=== PATIENT | female | born 1955 | race African-American/Black ===

== ENCOUNTER 2022-12-11 14:23 | Outpatient (REF) | payer OTHER, SELFPAY ==
--- NOTE | ~2022-12-11 | CT_ITS ---
EXAMINATION: CT ELBOW WITHOUT CONTRAST, RIGHT CLINICAL INFORMATION: Evaluate for occult fracture. COMPARISON: None. TECHNIQUE: CT scan of the right elbow was performed without contrast with reconstruction imaging performed at the acquisition workstation FINDINGS: There is a large joint effusion and possible synovitis. I do not see a fracture. Alignment is normal. There is a small 2 mm subchondral irregularity of the radiocarpal joint which could reflect a small subchondral cyst related to focal arthrosis. The articular surfaces otherwise appear intact and unremarkable. The surrounding bone is unremarkable. Cutaneous soft tissues: There is stranding in the subcutaneous soft tissues along the posterior aspect of the elbow including the olecranon bursa which could reflect edema or localized cellulitis and bursitis. Muscles/tendons: Unremarkable. CT/CT elbow RT wo IV con IMPRESSION: 1. No evidence for fracture. 2. Large joint effusion and possible synovitis. Etiology not determined. This could reflect an underlying inflammatory arthropathy. Cannot exclude early septic joint. 3. There is stranding in the subcutaneous soft tissues along the posterior aspect of the elbow including the olecranon bursa which could reflect edema or localized cellulitis and bursitis or contusion of the olecranon bursa. 4. Possible minimal osteoarthritis of the radiocarpal joint.
--- NOTE | ~2022-12-11 | CT_ITS ---
EXAMINATION: CT CHEST WITHOUT CONTRAST CLINICAL INFORMATION: Nicotine dependent. COMPARISON: None available. TECHNIQUE: Multidetector volumetric CT imaging of the chest was done. Axial MIP volume rendering provided. Sagittal and coronal reformatted images were obtained. This CT examination was performed using dose optimization techniques as appropriate, variously including the following: *Automated exposure control *Adjustment of mA and/or kV according to patient size (this includes techniques or standardized protocols for targeted exams where dose is matched to indication/reason for exam; i.e. extremities or head) *Use of iterative reconstruction technique DLP: 341 mGy-cm FINDINGS: LUNGS: There is a 1 cm opacity seen with ill-defined borders in the right upper lobe (7:201-220). With a small cystic area at its base. I suspect that this is most likely inflammatory/infectious in etiology. Scattered other areas of scarring/atelectasis is seen. Bibasilar groundglass changes are noted but significant respiratory artifact obscures detail. MEDIASTINUM: Thyroid appears mildly enlarged without discrete mass. Heart size within normal limits. No gross mediastinal or hilar lymphadenopathy is seen but study is limited without IV contrast. CORONARY ARTERY CALCIFICATION: Present PLEURA: There is no pleural effusion. No pleural mass or thickening. AXILLA: No lymphadenopathy. UPPER ABDOMEN: There is an indeterminate left adrenal gland nodule that measures 2.2 x 2.0 x 2.4 cm. This measures 35-50 Hounsfield units. This is less likely a gastric diverticulum. OSSEOUS STRUCTURES: Degenerative changes are present in the spine with biconvex scoliosis. No bony destructive lesions CT/CT chest wo IV con IMPRESSION: 1. There is a 1 cm ill-defined opacity in the right upper lobe with a small cystic area at its base. I suspect that this is most likely inflammatory/infectious in etiology. Follow-up should be per Fleischner criteria, see below. 2. Indeterminate left adrenal gland nodule. This could be further evaluated with a dedicated adrenal washout CT scan. 3. Incidental note made of mild thyromegaly, degenerative changes in the spine, and coronary artery calcifications. 2017 Fleischner Society Recommendations for Lung Nodule(s): Follow up based on size (average of long- and short-axis diameters). Use most suspicious nodule for followup. Single Part Solid lung nodule >= 6 - <=15 mm: Recommend a non-contrast Chest CT at 3-6 months to confirm persistence. If unchanged and the solid component remains < 6 mm, an annual non-contrast Chest CT should be performed for 5 years. If the solid component is 6 - 8 mm on follow-up, recommend biopsy or resection. If the solid component is > 8 mm on follow up, recommend PET/CT, biopsy or resection. These guidelines do not apply to patients younger than 35 years, immunocompromised patients, and patients with cancer. F/u in patients with significant comorbidities as clinically warranted. For lung cancer screening, adhere to Lung-RADS guidelines. Reference: Radiology. 2017 [place]; 284(1):228-243
== END 2022-12-11 14:24 | disposition home or self-care (01) ==
LOC: HO.CT 14:23
PROVIDERS: PCP Hospitalist; Visit Provider Hospitalist
DX: M25.521 Pain in right elbow (principal); Z87.891 Personal history of nicotine dependence
CPT/HCPCS: 71250; 73200

== ENCOUNTER 2022-12-21 17:13 | Emergency (ER) | payer OTHER, SELFPAY ==
--- NOTE | ~2022-12-21 | XR_ITS ---
EXAMINATION: XR CHEST CLINICAL INFORMATION: Cough, shortness of breath COMPARISON: Chest CT on 12/11/2022 TECHNIQUE: 2 views of the chest were obtained. FINDINGS: The cardiac silhouette is normal. There is mild diffuse bronchial wall thickening. There are no areas of consolidation. There are no pleural effusions or pneumothoraces. The bones and soft tissues are unremarkable for the patient's age. XR/XR chest 2V IMPRESSION: Bronchial wall thickening may be infectious and/or inflammatory in etiology.
--- NOTE | 2022-12-21 17:16 | ED_ITS ---
HPI - General Adult General Chief complaint: Dyspnea Stated complaint: difficulty breathing Time Seen by Provider: 12/21/22 23:30 Source: patient Mode of arrival: ambulatory Limitations: no limitations History of Present Illness HPI narrative: 67 yo female with PMH of CAD s/p stent, HTN, arthritis dealing with R elbow not being able to be fully extended just had CT scan showed efffusion and synovisitis doctor put her on cephalexin though no redness swelling or fever. She has not taken any cephalexin as she isn't sure why her doctor started it. She has been dealing with shortness of breath for a little bit but no chest pain has not seen her food service coordinator - no travel, fevers, cough, quit smoking 5 years ago not related to exertion, the patient states she is fine sometimes and not others. No edema she was walking to the office and felt short of breath came to the ED. she feels fine now and has no hx of blood clots wants to go but agrees to repeat troponin. MD complaint: shortness of breath Onset (ago): week(s) (several) Location: chest Severity: mild Relieving factors: none Exacerbating factors: rest (exertion) Associated symptoms: other (R elbow is stiff) Treatments prior to arrival: none Related Data Previous Rx's Medication Instructions Recorded albuterol sulfate 90 mcg/actuation 2 puff inhalation QID PRN 12/22/22 aerosol inhaler shortness of breath or wheezing #6.7 grams doxycycline hyclate 100 mg capsule 100 mg PO BID 7 days #14 caps 12/22/22 Allergies Allergy/AdvReac Type Severity Reaction Status Date / Time No Known Allergies Allergy Verified 12/21/22 17:18 Review of Systems Review of Systems: Constitutional : No Fever, No Chills Cardiovascular : No Chest Pain, positive SOB, No Orthopnea, no edema Respiratory : No Cough, No Sputum, No Wheezing, positive dyspnea Gastrointestinal : No Nausea, No Vomiting, No Diarrhea, No abdominal Pain, No Hematochezia, No Melena Genitourinary : No Dysuria, No Urinary Frequency, No Hematuria Musculoskeletal : pos joint pain, No Myalgias Skin : No Skin Lesions, No rash Neuro : No Weakness, No Numbness, No Dizziness, No Headache Psych : No Anxiety/Panic, No Depression All other systems reviewed and are negative [facility] Past Medical History Attestation statement: The following information was validated with the patient. Medical History CAD (coronary artery disease) HTN (hypertension) Social History Social History Alcohol intake: never Smoked in Last 30 Days: No Use of substances other than those prescribed or required for medical reasons: No Advance Directives: No Advance Directives Information Provided: No Physical Exam ED Vital Signs: Vital Signs - 24 hr 12/21/22 17:17 12/21/22 23:25 12/21/22 23:58 Temperature 97.6 F 97.7 F 97.8 F Pulse Rate 100 101 H 101 H Respiratory Rate 18 18 15 Blood Pressure 165/71 H 178/75 H 167/81 H Pulse Oximetry 92 96 98 Oxygen Delivery Method Room Air Room Air BMI result Body Mass Index 33.5 Appearance: Alert. Oriented X3. No acute distress. anxious Eyes: Pupils equal, round and reactive to light. ENT: Pharynx normal. Neck: Normal inspection. Neck supple. CVS: slightly tachycardicl heart rate and rhythm. Pulses normal. Respiratory: No respiratory distress. Breath sounds normal. Abdomen: Soft and nontender. Skin: Skin warm and dry. Normal skin color. Normal skin turgor. Extremities: No lower extremity edema. No calf ttp Neuro: Oriented X 3. No motor deficit. No sensory deficit. Course Course Course Narrative: RME performed by Kayley Acosta PA-C. Patient is a 67 year old assigned female at presenting to the emergency department with shortness of breath. Labs, imaging, and swabs ordered. Patient placed back in the waiting room pending room availability and results. Reevaluation(s) Reevaluation #1: trop flat stable for DC Medical Decision Making Medical Decision Making MDM Narrative: 67 yo female with PMH of CAD s/p stent, HTN, arthritis here with several weeks of shortnss of breath had CT scan benjie shows some inflammation/infection will need trial of doxycycline. R elbow is not infected she plans to call her orthopedic doctor will hold cephalexin. As for dyspnea it is been on and off CT scan done she has mild tachycardia but no pleuritic chest pain to suggest PE and it has been many weeks - no signs of DVT. She has no sig anemia. She does agree to repeat troponin which would be my biggest concern she will follow up with her food service coordinator. Differential Diagnosis Differential Diagnoses: The differential diagnosis associated with the presentation includes pulmonary disease due to smoking, atypical ACS, PE less likely given several weeks no pleuritic chest pain and no hypoxia or signs of DVT Admission/Observation Consideration of admission/observation: Escalation of care including admis rodney/observation considered no active symptoms, trop flat x 2, CT scan done, plans to follow up with food service coordinator, start on doxycycline Lab Data MDM Lab Attestation statement: I reviewed the patient's lab results. 12/21/22 17:34 12/21/22 17:34 Labs: Lab Results 12/21/22 12/21/22 12/21/22 Range/Units 17:34 17:34 17:34 WBC 6.7 (4.8-10.8) X10*3/uL RBC 4.24 (4.20-5.50) X10*6/uL Hgb 11.2 L (12.0-16.0) g/dl Hct 35.6 L (37.0-47.0) % MCV 84.0 (80.0-98.0) fL MCH 26.4 L (27.0-33.0) pg MCHC 31.5 (31.0-35.0) g/dl RDW 14.0 (11.0-16.0) % Plt Count 252 (160-400) X10*3/uL MPV 9.1 L (9.4-12.3) fL Immature Gran % (Auto) 0.3 (0.0-0.4) % Neut % (Auto) 54.6 (45-73) % Lymph % (Auto) 29.4 (20-40) % [place] % (Auto) 10.7 (2-11) % Eos % (Auto) 4.3 H (0-4) % Baso % (Auto) 0.7 (0-2) % Lymph # (Auto) 2.0 (1.2-4.9) X10*3/uL [place] # (Auto) 0.7 (0.1-1.2) X10*3/uL Eos # (Auto) 0.3 (0.0-0.4) X10*3/uL Baso # (Auto) 0.1 (0.0-0.2) X10*3/uL Abs Immat Gran (auto) 0.02 (0.00-0.03) X10*3/uL Absolute Neuts (auto) 3.7 (2.0-8.3) x10*3/uL Absolute Nucleated RBC 0.000 (0.0-0.012) X10*3/uL Nucleated RBC % (auto) 0.0 (0.0-0.2) /100WBC Sodium 140 (135-145) mmol/L Potassium 3.9 (3.3-5.1) mmol/L Chloride 108 (96-108) mmol/L Carbon Dioxide 23 (22-29) mmol/L Anion Gap 13 (12-20) BUN 10 (9-16) mg/dL Creatinine 0.75 (0.5-1.4) mg/dL Estim Creat Clear Calc 86.0 Estimated GFR > 60 Random Glucose 86 (60-115) mg/dL Calcium 9.6 (8.4-10.2) mg/dL Magnesium 2.4 (1.6-2.6) mg/dL Total Bilirubin 0.3 (0.0-1.0) mg/dL AST 15 (5-31) U/L ALT 13 (0-31) U/L Alkaline Phosphatase 66 (39-117) U/L Troponin I High Sens 4.1 (<3.5-17.0) ng/L Total Protein 7.5 (6.5-8.0) g/dL Albumin 3.5 (3.5-5.0) g/dL COVID-19 ([facility]) (Negative) COVID-19 Clin Com 12/21/22 12/22/22 Range/Units 17:34 00:02 WBC (4.8-10.8) X10*3/uL RBC (4.20-5.50) X10*6/uL Hgb (12.0-16.0) g/dl Hct (37.0-47.0) % MCV (80.0-98.0) fL MCH (27.0-33.0) pg MCHC (31.0-35.0) g/dl RDW (11.0-16.0) % Plt Count (160-400) X10*3/uL MPV (9.4-12.3) fL Immature Gran % (Auto) (0.0-0.4) % Neut % (Auto) (45-73) % Lymph % (Auto) (20-40) % [place] % (Auto) (2-11) % Eos % (Auto) (0-4) % Baso % (Auto) (0-2) % Lymph # (Auto) (1.2-4.9) X10*3/uL [place] # (Auto) (0.1-1.2) X10*3/uL Eos # (Auto) (0.0-0.4) X10*3/uL Baso # (Auto) (0.0-0.2) X10*3/uL Abs Immat Gran (auto) (0.00-0.03) X10*3/uL Absolute Neuts (auto) (2.0-8.3) x10*3/uL Absolute Nucleated RBC (0.0-0.012) X10*3/uL Nucleated RBC % (auto) (0.0-0.2) /100WBC Sodium (135-145) mmol/L Potassium (3.3-5.1) mmol/L Chloride (96-108) mmol/L Carbon Dioxide (22-29) mmol/L Anion Gap (12-20) BUN (9-16) mg/dL Creatinine (0.5-1.4) mg/dL Estim Creat Clear Calc Estimated GFR Random Glucose (60-115) mg/dL Calcium (8.4-10.2) mg/dL Magnesium (1.6-2.6) mg/dL Total Bilirubin (0.0-1.0) mg/dL AST (5-31) U/L ALT (0-31) U/L Alkaline Phosphatase (39-117) U/L Troponin I High Sens 5.5 (<3.5-17.0) ng/L Total Protein (6.5-8.0) g/dL Albumin (3.5-5.0) g/dL COVID-19 ([facility]INO) Negative (Negative) COVID-19 Clin Com See Note Independent Interpretation I performed an independent interpretation of an: EKG and Plain X-Ray (normal ) Interpretation: Rate: 97 Rhythm: NSR Paia: left, LVH Normal P waves. Normal JC. Normal QRS complex. ST T wave : no DINA, inverted I and aVL (LVH) qTC: normal prior studies: no acute ischemia The study has been interpreted contemporaneously by me. . Radiology Impression Discussion of test interpretation with radiology: I have reviewed the radiologist's reading. External Record Review External record reviewed: Prior outpatient radiology Prescription Management I considered prescription management with: Antibiotic Chronic Conditions Patient?s care impacted by: Hypertension Discharge Plan Discharge Clinical Impression: Chronic dyspnea Patient Disposition: Home, Self-Care Instructions: Dyspnea (ED) Additional Instructions: do not take cephalexin. take the doxycycline and follow up with your doctor. return for worsening symptoms of shortness of breath, edema, chest pain, dizziness or any other concerns. talk to your food service coordinator in th next week. while on doxycycline take it with a full meal and glass of water - take a probiotic while you are on antibiotic, doxycycline can cause sensitivity to the sun Prescriptions: New doxycycline hyclate 100 mg capsule 100 mg PO BID 7 Days Qty: 14 0RF albuterol sulfate 90 mcg/actuation HFA aerosol inhaler 2 puff inhalation QID PRN (Reason: shortness of breath or wheezing) Qty: 6.7 0RF Interventions: ED Discharge Assessment Last Done: 12/22/22 00:55 Discharge Date/Time: 12/22/22 00:55
[2022-12-21 17:17] VITALS: BP 165/71; PULSE 100; RESP 18; TEMP 36.4; O2SAT 92; BMI 33.5
--- NOTE | 2022-12-21 17:18 | ECG_ITS ---
Test Reason : SOB Blood Pressure : / mmHG Vent. Rate : 097 BPM Atrial Rate : 097 BPM P-R Int : 222 ms QRS Dur : 080 ms QT Int : 370 ms P-R-T Axes : 054 -12 078 degrees QTc Int : 469 ms Sinus rhythm with 1st degree A-V block Moderate voltage criteria for LVH, may be normal variant ( R in aVL , [place] product ) Borderline ECG No previous ECGs available Referred By: Kayley Acosta Electronically Signed By:Chris Milian
--- NOTE | 2022-12-21 17:23 | PC.NURSE ---
Pt states that they don't want an albuterol updraft because it makes them very jittery. Prefers to have updraft with zolpidem. Pt stated this to provider KAYLEE Real & triage nurse Roberta.
--- NOTE | 2022-12-21 17:36 | MHC.EDTECH ---
Labs collected and sent
[2022-12-21 17:40] LABS: MANUAL DIFF FLAG NO
[2022-12-21 17:44] LABS: Basophils Absolute Auto 0.1 X10*3/uL (0.0-0.2); Basophils Percent Auto 0.7 % (0-2); Eosinophils Absolute Auto 0.3 X10*3/uL (0.0-0.4); Eosinophils Percent Auto 4.3 % (0-4); Hematocrit 35.6 % (37.0-47.0); Hemoglobin 11.2 g/dl (12.0-16.0); Imm Gran Abs Auto 0.02 X10*3/uL (0.00-0.03); Imm Gran Pct Auto 0.3 % (0.0-0.4); Lymphocytes Percent Auto 29.4 % (20-40); Mean Corpuscular HGB Conc 31.5 g/dl (31.0-35.0); Mean Corpuscular Hemoglobin 26.4 pg (27.0-33.0); Mean Platelet Volume 9.1 fL (9.4-12.3); Monocytes Absolute Auto 0.7 X10*3/uL (0.1-1.2); Monocytes Percent Auto 10.7 % (2-11); Neutrophils Absolute Auto 3.7 x10*3/uL (2.0-8.3); Neutrophils Percent Auto 54.6 % (45-73); Platelet Count 252 X10*3/uL (160-400); Red Blood Count 4.24 X10*6/uL (4.20-5.50); White Blood Count 6.7 X10*3/uL (4.8-10.8)
[2022-12-21 18:05] LABS: COVID-19 Test Negative (Negative); IDNOW Serial# 08D9AD1C
[2022-12-21 18:22] LABS: Alanine Aminotransferase 13 U/L (0-31); Albumin Level 3.5 g/dL (3.5-5.0); Alkaline Phosphatase 66 U/L (39-117); Anion Gap 13 (12-20); Aspartate Amino Transferase 15 U/L (5-31); Bilirubin Total 0.3 mg/dL (0.0-1.0); Blood Urea Nitrogen 10 mg/dL (9-16); Calcium 9.6 mg/dL (8.4-10.2); Carbon Dioxide 23 mmol/L (22-29); Chloride 108 mmol/L (96-108); Estimated Glomerular Filt Rate > 60; Glucose Random 86 mg/dL (60-115); Magnesium 2.4 mg/dL (1.6-2.6); Potassium 3.9 mmol/L (3.3-5.1); Sodium 140 mmol/L (135-145); Total Protein 7.5 g/dL (6.5-8.0)
[2022-12-21 18:30] LABS: Troponin-I High Sensitivity 4.1 ng/L (<3.5-17.0)
[2022-12-21 23:25] VITALS: BP 178/75; PULSE 101; RESP 18; TEMP 36.5; O2SAT 96
[2022-12-21 23:58] VITALS: BP 167/81; PULSE 101; RESP 15; TEMP 36.6; O2SAT 98
--- NOTE | 2022-12-22 00:03 | MHC.EDTECH ---
PATIENT 0000 VITALS SIGN TAKEN ,AND REPEATED TROP DRAWN AND SENT TO LAB .
[2022-12-22 00:28] LABS: Troponin-I High Sensitivity 5.5 ng/L (<3.5-17.0)
== END 2022-12-22 00:55 | disposition home or self-care (01) ==
PROVIDERS: Physician Assistant Medical; Emergency Provider Emergency Medicine; PCP Hospitalist
DX: R06.00 Dyspnea, unspecified (principal); Z20.822 Contact with and (suspected) exposure to COVID-19; R06.02 Shortness of breath; I10 Essential (primary) hypertension
CPT/HCPCS: 36415; 71046; 80053; 83735; 84484; 85025; 87635; 93005; 99283; 99285

== ENCOUNTER → 2022-12-21 17:18 | Outpatient (BNV) | payer OTHER, SELFPAY | PROVIDERS: Emergency Provider Emergency Medicine; PCP Hospitalist; Visit Provider Internal Medicine Cardiovascular Disease | DX: I44.0 Atrioventricular block, first degree (principal) | CPT/HCPCS: 93010 ==

== ENCOUNTER 2023-01-21 08:32 | Outpatient (REF) | payer OTHER, SELFPAY ==
--- NOTE | ~2023-01-21 | MM_ITS ---
EXAMINATION: MM SCREENING DIGITAL BREAST TOMOSYNTHESIS, BILATERAL CLINICAL INFORMATION: Screening. Asymptomatic. COMPARISON: Mammography: This study is compared with the only prior mammogram available from 2014. TECHNIQUE: Digital breast tomosynthesis is performed in both the craniocaudal and mediolateral oblique views along with computer-aided detection (CAD). Synthesized 2D images are generated from the tomosynthesis. FINDINGS: There are scattered areas of fibroglandular density (ACR BI-RADS breast composition Category b). There is tissue marker in the upper inner quadrant of the right breast from prior benign percutaneous biopsy. There are no significant masses, abnormal calcifications, or other abnormalities. MM/MM tomosynthesis screening BI IMPRESSION: No mammographic evidence of malignancy. ASSESSMENT: BI-RADS BI-RADS 2 - Benign Findings RECOMMENDATION: Routine annual mammography screening. 1 year F/U This examination should not preclude the clinical evaluation of a suspicious palpable abnormality. This patient's information was entered into a reminder system with a target due date for their next mammogram.
--- NOTE | ~2023-01-21 | MM_ITS ---
EXAMINATION: BONE DENSITOMETRY CLINICAL INDICATION: Age-related osteoporosis without current pathological fracture. COMPARISON: This is the patient's baseline examination. TECHNIQUE: Using a [employer] DXA System (software version: 13.1) manufactured by [employer], dual-energy x-ray absorptiometry was performed of the lumbar spine and left hip. The images are of good technical quality. Summary results are attached. FINDINGS: LEFT FEMUR, NECK: BMD 0.891 g/cm2, Z-score -1.1, T-score -1.1, osteopenia. LEFT FEMUR, TOTAL: BMD 1.049 g/cm2, Z-score -0.1, T-score 0.3, normal. AP SPINE L1-L4: BMD 1.209 g/cm2, Z-score 0.2, T-score 0.2, normal. IDENTIFIED RISK FACTORS: Low calcium intake, secondary osteoporosis, menopause. HISTORY OF FRACTURE: None listed. MEDICATIONS: None listed. MM/XR DEXA axial skeleton IMPRESSION: 1. DIAGNOSIS: Osteopenia based on the lowest T-score value of -1.1 in the femoral neck applying World Health Organization criteria. 2. 10-YEAR FRACTURE RISK PREDICTION, FRAX: Major osteoporotic fracture (clinical spine, forearm, hip or shoulder) 3.5%. Hip fracture 0.3%. 3. Treatment Recommendations: NOF guidelines recommend consideration for treatment in postmenopausal women and men age 50 and older presenting with the following: -A hip or vertebral (clinical or morphometric) fracture. -T-score less than or equal to -2.5 at the femoral neck or spine after appropriate evaluation to exclude secondary causes. -Low bone mass at the hip or spine and a 10-year fracture probability by FRAX of greater than or equal to 3% for hip fracture or greater than or equal to 20% for major osteoporotic fracture based on the [place] adapted WHO algorithm. 4. Other Recommendations: All treatment decisions require clinical judgment and consideration of individual patient factors, including patient preferences, comorbidities, previous drug use, risk factors not captured in the FRAX model (e.g. frailty, falls, vitamin D deficiency, increased bone turnover, interval significant decline in bone density) and possible under or overestimation of fracture risk by FRAX. Additional medical evaluation for secondary cause of low bone mineral density may be appropriate. FUTURE SCAN RECOMMENDATION: People with diagnosed cases of osteoporosis or at high risk for fracture should have regular bone mineral density tests. For patients eligible for Medicare, routine testing is allowed once every 2 years. The testing frequency can be increased to one year for patients who have rapidly progressing disease, those who are receiving or discontinuing medical therapy to restore bone mass, or have additional risk factors.
== END 2023-01-21 08:33 | disposition home or self-care (01) ==
LOC: HO.MAMMO 08:32
PROVIDERS: PCP Hospitalist; Visit Provider Hospitalist
DX: Z12.31 Encounter for screening mammogram for malignant neoplasm of breast (principal); Z13.820 Encounter for screening for osteoporosis; Z78.0 Asymptomatic menopausal state; M81.0 Age-related osteoporosis without current pathological fracture
CPT/HCPCS: 77063; 77067; 77080

== ENCOUNTER → 2023-01-21 09:00 | Outpatient (BNV) | payer OTHER, SELFPAY | PROVIDERS: PCP Hospitalist; Visit Provider Radiology Diagnostic Radiology | DX: Z12.31 Encounter for screening mammogram for malignant neoplasm of breast (principal) | CPT/HCPCS: 77063; 77067; 77080 ==

== ENCOUNTER 2023-02-16 11:10 | Outpatient (AMB) | payer OTHER, SELFPAY ==
--- NOTE | 2023-02-16 11:28 | A.OFFVIS_ITS ---
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 States both are as bad. States she has tried and received temporary relief from P.T injections. Last injection was in July 2022. Patient has a history of HPB and DM. Her patient states that the cortisone injections gave her only temporary relief. She has not had a viscosupplementation injection. She has done physical therapy for 12 weeks over the last 6 months which aggravated her pain. She has also tried Tylenol and anti-inflammatory medicines which gave her minimal relief. Should would like to hold off on surgery for as long as possible. Allergies No Known Allergies Allergy (Verified 02/16/23 11:32) Medication List - Last Reconciled 02/16/23 by Chepe Calvo MD albuterol sulfate 90 mcg/actuation 2 puffs inhalation QID PRN hydrochlorothiazide 25 mg PO DAILY insulin glargine (Lantus Solostar U-100 Insulin) units subcut metoprolol tartrate 50 mg PO BID rosuvastatin 40 mg PO DAILY sertraline 25 mg PO DAILY [facility] Medical History CAD (coronary artery disease) HTN (hypertension) Social History (Updated 02/16/23 @ 11:33 by Cristina Foster 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 Physical Exam Vital Signs: BMI result Body Mass Index 33.5 Const Other: Well-nourished well-developed very friendly female awake alert and oriented x3 in no acute distress Extrem Other: Bilateral lower extremity examination shows good capillary refill, no skin lesions noted, normal sensation light touch Bilateral knee examination shows minimal effusions, palpable crepitus with range of motion, pain with range of motion, range of motion from -3 degrees to 115 degrees, no instability Results Reviewed Results Reviewed: X-rays of the patient's bilateral knee show joint space narrowing, subchondral sclerosis, no acute bony abnormalities Assessment & Plan Assessment & Plan (1) Arthritis of both knees: Code(s): M17.0 - Bilateral primary osteoarthritis of knee Plan: Ms. Ortiz presents with bilateral knee pains due to degenerative joint disease. I had a lengthy discussion with the patient regarding the treatment options. She has not gotten good relief from cortisone injections in the past. She would like to hold off on surgery for as long as possible. Thus, I will see whether not the patient's insurance company will cover a viscosupplementation injection for both of her knees. I will see her back once the injections are available. Feel free to call me at any time should questions regarding her orthopedic management arise. Thank you very much for asking me to see this very friendly patient. I spent 22 minutes in reviewing the patient's records and imaging studies, seeing the patient and documenting in the medical record. Medications: New tramadol 50 mg PO Q8H PRN 40 tabs 0RF pain Coding Level of Care Code New Pt Level 2 (77918) Diagnoses Arthritis of both knees M17.0
[2023-02-16 11:29] VITALS: BMI 33.5
== END 2023-02-16 11:41 | disposition home or self-care (01) ==
PROVIDERS: PCP Hospitalist; Visit Provider Orthopaedic Surgery
DX: M17.0 Bilateral primary osteoarthritis of knee (principal)
CPT/HCPCS: 99202

== ENCOUNTER → 2023-02-16 11:10 | Outpatient (BNVA) | payer OTHER, SELFPAY | PROVIDERS: PCP Hospitalist; Visit Provider Orthopaedic Surgery | DX: M17.0 Bilateral primary osteoarthritis of knee (principal) | CPT/HCPCS: 99202 ==

== ENCOUNTER 2023-03-17 13:23 | Outpatient (AMB) | payer OTHER, SELFPAY ==
--- NOTE | 2023-03-17 13:33 | MHC.OFFVIS ---
Intake Intake Visit Reasons: OV - Bilateral Knee SynviscOne Intake Note: Suyapa 67 yr old female presents today for bilateral knee pains. States both are as bad. States she has tried and received temporary relief from P.T injections. Last injection was in July 2022. Patient has a history of HPB and DM. Her patient states that the cortisone injections gave her only temporary relief. She has not had a viscosupplementation injection. She has done physical therapy for 12 weeks over the last 6 months which aggravated her pain. She has also tried Tylenol and anti-inflammatory medicines which gave her minimal relief. Should would like to hold off on surgery for as long as possible. Allergies No Known Allergies Allergy (Verified 02/16/23 11:32) Medication List - Last Reconciled 03/17/23 by Chepe Calvo MD albuterol sulfate 90 mcg/actuation 2 puffs inhalation QID PRN hydrochlorothiazide 25 mg PO DAILY insulin glargine (Lantus Solostar U-100 Insulin) units subcut metoprolol tartrate 50 mg PO BID rosuvastatin 40 mg PO DAILY sertraline 25 mg PO DAILY tramadol 50 mg PO Q8H PRN PFSH Medical History CAD (coronary artery disease) HTN (hypertension) Social History (Updated 02/16/23 @ 11:33 by Cristina Foster [facility]) Alcohol intake: never Current occupational status: unemployed 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 Physical Exam Const Other: Well-nourished well-developed very friendly female awake alert and oriented x3 in no acute distress Extrem Other: Bilateral lower extremity examination shows good capillary refill, no skin lesions noted, normal sensation light touch Bilateral knee examination shows minimal effusions, palpable crepitus with range of motion, pain with range of motion, range of motion from -3 degrees to 115 degrees, no instability Office Procedures Joint Injection/Drain Joint Injection/Drain Primary Site: left knee Prep: site was prepped using aseptic technique Injected: 1% plain lidocaine and other (48 mg of Synvisc One) Procedure: The patient tolerated the procedure well Coding 00058 - Large joint Procedure code (CPT) selection complete Joint Injection/Drain Joint Injection/Drain Primary Site: right knee Prep: site was prepped using aseptic technique Injected: 1% plain lidocaine and other (48 mg of Synvisc One) Procedure: The patient tolerated the procedure well Coding - Large joint Procedure code (CPT) selection complete Results Reviewed Results Reviewed: 03/17/23 13:29 Hylan G-F 20 [Synvisc-One] 48 mg INTRAARTIC .STK-MED ONE Lidocaine HCl 2 % MPF [Xylocaine 2 % MPF] 5 ml .ROUTE .STK-MED ONE 03/17/23 13:37 Lidocaine HCl 2 % MPF [Xylocaine 2 % MPF] 5 ml .ROUTE .STK-MED ONE X-rays of the patient's bilateral knee show joint space narrowing, subchondral sclerosis, no acute bony abnormalities Assessment & Plan Assessment & Plan (1) Arthritis of right knee: Code(s): M17.11 - Unilateral primary osteoarthritis, right knee Plan: Ms. Ortiz presents with bilateral knee pains due to degenerative joint disease. I had a lengthy discussion with the patient regarding the treatment options. She wishes to hold off on surgery for as long as possible. I agree with this plan. She has had cortisone injections in the past which gave her minimal relief. Thus, the risks and benefits of bilateral Synvisc 1 injections were discussed at length with the patient. The patient wished to proceed. She tolerated the injections well. She will continue with her home exercise program. She will follow up with me on an as-needed basis should her symptoms not plateau at an unacceptable level over the next few months. Feel free to call me at any time should questions regarding her orthopedic management arise. I spent 22 minutes in reviewing the patient's records and imaging studies, seeing the patient and documenting in the medical record. (2) Arthritis of left knee: Code(s): M17.12 - Unilateral primary osteoarthritis, left knee Orders: Orders AMB Joint Injection/Aspiration Today M17.11 - Unilateral primary osteoarthritis, right knee AMB Joint Injection/Aspiration Today M17.12 - Unilateral primary osteoarthritis, left knee Coding Level of Care Code Est Pt Level 2 (27736) Diagnoses Arthritis of right knee M17.11 Arthritis of left knee M17.12 CPT Codes Coding - Large joint: 02536 - Large joint ([id number]) Coding - 38570 Large joint: 51995 - Large joint ([id number])
== END 2023-03-17 14:04 | disposition home or self-care (01) ==
PROVIDERS: PCP Hospitalist; Visit Provider Orthopaedic Surgery
DX: M17.0 Bilateral primary osteoarthritis of knee (principal)
CPT/HCPCS: 20610; 99213

== ENCOUNTER → 2023-03-17 13:23 | Outpatient (BNVA) | payer OTHER, SELFPAY | PROVIDERS: PCP Hospitalist; Visit Provider Orthopaedic Surgery | DX: M17.0 Bilateral primary osteoarthritis of knee (principal) | CPT/HCPCS: 20610; 99212; J7325 ==

== ENCOUNTER 2023-03-29 14:53 | Outpatient (AMB) | payer OTHER, SELFPAY ==
--- NOTE | 2023-03-29 14:56 | A.OFFVIS_ITS ---
Intake Vital Signs 03/29/23 14:58 Height 5 ft 6.5 in Weight 219 lb BMI 34.8 BP 175/73 H Blood Pressure Location Rt brachial Position Sitting Pulse 86 Intake Visit Reasons: Pulmonary Nodule Intake Note: Patient referred for pulmonary nodule noted on chest X-ray in December. Management Manager Required: No Accompanied by: Self / Same As Patient Allergies No Known Allergies Allergy (Verified 03/29/23 15:04) HPI HPI Comments History of Present Illness Details Patient presents from a CT scan from // which demonstrated a new right upper lobe pulmonary nodule. Scan was ordered by the patient's medical doctor because of her longstanding smoking history which was over one pack a day for thirty five +years. Patient has history of emphysema/COPD. 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 She is occasionally mildly shortness of breath with strenuous activities. She denies any chronic cough, chest pain, wheezing, or hemoptysis. 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 Chest Other: Chest breath sounds bilaterally, consistent with COPD. GI Other: Abdomen soft, corpulent, benign Assessment & Plan Assessment & Plan (1) Lung nodule seen on imaging study: Code(s): R91.1 - Solitary pulmonary nodule (2) Emphysema lung: Code(s): J43.9 - Emphysema, unspecified Plan Current plan is to obtain a six-month follow-up CT scan which would be in late May and see me after the study and direct further therapy and interventions on the results of the scan the patient's clinical course. Meantime, patient is having COPD symptoms and is not have a media analytics manager. Arrangements were made for this. Coding Level of Care Code New Pt Level 4 (66941) Diagnoses Lung nodule seen on imaging study R91.1 Emphysema lung J43.9
[2023-03-29 14:58] VITALS: BP 175/73; PULSE 86; BMI 34.8
== END 2023-03-29 15:15 | disposition home or self-care (01) ==
PROVIDERS: PCP Hospitalist; Referring Provider Hospitalist; Visit Provider Surgery
DX: R91.1 Solitary pulmonary nodule (principal); J43.9 Emphysema, unspecified
CPT/HCPCS: 99204; 99214

== ENCOUNTER → 2023-03-29 14:53 | Outpatient (BNVA) | payer OTHER, SELFPAY | PROVIDERS: PCP Hospitalist; Referring Provider Hospitalist; Visit Provider Surgery | DX: R91.1 Solitary pulmonary nodule (principal); J43.9 Emphysema, unspecified | CPT/HCPCS: 99202 ==

== ENCOUNTER 2023-06-09 13:51 | Outpatient (REF) | payer MEDICARE, SELFPAY ==
--- NOTE | ~2023-06-09 | CT_ITS ---
EXAMINATION: CT CHEST WITHOUT CONTRAST CLINICAL INFORMATION: Right upper lobe pulmonary nodule COMPARISON: 12/11/2022 TECHNIQUE: Multidetector volumetric CT imaging of the chest was done. Axial MIP volume rendering provided. Sagittal and coronal reformatted images were obtained. This CT examination was performed using dose optimization techniques as appropriate, variously including the following: *Automated exposure control *Adjustment of mA and/or kV according to patient size (this includes techniques or standardized protocols for targeted exams where dose is matched to indication/reason for exam; i.e. extremities or head) *Use of iterative reconstruction technique DLP: 250 mGy-cm FINDINGS: LABORER VINEYARD: No acute cardiopulmonary disease. LUNGS: Trachea and bronchi are patent. Scattered atelectasis. 1 cm opacity right upper lobe seen on previous study has resolved. MEDIASTINUM: Unchanged prominent thyroid without nodules. Nonspecific heterogeneous tiny lymph nodes. No pathologic lymphadenopathy. Prominent heart. Trace pericardial fluid. Nonaneurysmal aorta with atherosclerotic calcifications. Nonenlarged pulmonary arteries. CORONARY ARTERY CALCIFICATION: Moderately severe. PLEURA: There is no pleural effusion. No pleural mass or thickening. AXILLA: Enlarged right axillary lymph nodes, largest measuring 3 cm. Nonspecific left axillary lymph nodes. UPPER ABDOMEN: 2.7 cm homogeneous left adrenal lesion with Hounsfield units measuring 37, this previously measured 2.2 cm on 12/11/2022. OSSEOUS/SOFT TISSUE STRUCTURES: Benign-appearing right breast calcification. Dextroscoliosis. CT/CT chest wo IV con IMPRESSION: Resolution 1 cm right upper lobe pulmonary opacity. Slight increase in size 2.7 cm left adrenal lesion, possibly adenoma. Adrenal washout CT or chemical shift MRI recommended. Axillary adenopathy, largest on the right measuring 3 cm. Bilateral axillary ultrasounds recommended. Fleischner guidelines were followed.
== END 2023-06-09 13:52 | disposition home or self-care (01) ==
LOC: HO.CT 13:51
PROVIDERS: PCP Hospitalist; Visit Provider Surgery
DX: R91.1 Solitary pulmonary nodule (principal); J43.9 Emphysema, unspecified
CPT/HCPCS: 71250

== ENCOUNTER 2023-06-17 13:26 | Outpatient (AMB) | payer MEDICARE, SELFPAY ==
[2023-06-17 13:28] VITALS: BMI 34.8
--- NOTE | 2023-06-17 13:28 | MHC.OFFVIS ---
Intake Vital Signs 06/17/23 13:28 Height 5 ft 6.5 in Weight 219 lb BMI 34.8 Intake Visit Reasons: Bilateral knee pain Intake Note: Suyapa 67 yr old female presents with complaints of pain in both of her knees. The patient has had cortisone injections in the past which gave her minimal relief. She has also had viscosupplementation injections which gave her very good relief. She has tried Tylenol, anti-inflammatory medicines and tramadol which gave her minimal relief. The patient would like to hold off on surgery for as long as possible. She has done physical therapy exercises which aggravated her pain. Allergies No Known Allergies Allergy (Verified 06/17/23 13:42) Medication List - Last Reconciled 06/17/23 by Chepe Calvo MD albuterol sulfate 90 mcg/actuation 2 puffs inhalation QID PRN hydrochlorothiazide 25 mg PO DAILY insulin glargine (Lantus Solostar U-100 Insulin) units subcut metoprolol tartrate 50 mg PO BID rosuvastatin 40 mg PO DAILY sertraline 25 mg PO DAILY tramadol 50 mg PO Q8H PRN PFSH Medical History CAD (coronary artery disease) HTN (hypertension) Surgical History History of appendectomy Social History Alcohol intake: never Patient Tobacco Use Status: Former Tobacco user Quit Date: 2017 Current occupational status: unemployed 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 Physical Exam Vital Signs: BMI result Body Mass Index 34.8 Const Other: Well-nourished well-developed very friendly female awake alert and oriented x3 in no acute distress Extrem Other: Bilateral lower extremity examination shows good capillary refill, no skin lesions noted, normal sensation light touch Bilateral knee examination shows minimal effusions, palpable crepitus with range of motion, pain with range of motion, no instability Results Reviewed Results Reviewed: X-rays of the patient's bilateral knee show joint space narrowing, subchondral sclerosis, no acute bony abnormalities Assessment & Plan Assessment & Plan (1) Pain in both knees: Code(s): M25.561 - Pain in right knee; M25.562 - Pain in left knee (2) Arthritis of right knee: Code(s): M17.11 - Unilateral primary osteoarthritis, right knee (3) Arthritis of left knee: Code(s): M17.12 - Unilateral primary osteoarthritis, left knee Plan Ms. Ortiz presents with bilateral knee pains due to degenerative joint disease. I had a lengthy discussion with the patient regarding the treatment options. She wishes to hold off on surgery for as long as possible. I agree with this plan. She has not gotten good relief from cortisone injections in the past. Thus, I will see whether not her insurance company will cover another viscosupplementation injection for both of her knees. I will see her back once the injections are available. Feel free to call me at any time should questions regarding her orthopedic management arise. I spent 22 minutes in reviewing the patient's records and imaging studies, seeing the patient and documenting in the medical record. Medications: Refilled tramadol 50 mg PO Q8H PRN 40 tabs 0RF pain Coding Level of Care Code Est Pt Level 2 (63157) Diagnoses Pain in both knees M25.561; M25.562 Arthritis of right knee M17.11 Arthritis of left knee M17.12
== END 2023-06-17 14:05 | disposition home or self-care (01) ==
PROVIDERS: PCP Hospitalist; Visit Provider Orthopaedic Surgery
DX: M17.0 Bilateral primary osteoarthritis of knee (principal)
CPT/HCPCS: 99213

== ENCOUNTER → 2023-06-17 13:26 | Outpatient (BNVA) | payer MEDICARE, SELFPAY | PROVIDERS: PCP Hospitalist; Visit Provider Orthopaedic Surgery | DX: M17.0 Bilateral primary osteoarthritis of knee (principal) | CPT/HCPCS: 99212 ==

== ENCOUNTER 2023-06-21 12:55 | Outpatient (AMB) | payer MEDICARE, SELFPAY ==
[2023-06-21 13:01] VITALS: PULSE 82
--- NOTE | 2023-06-21 13:01 | MHC.OFFVIS ---
Intake Vital Signs 06/21/23 13:01 Pulse 82 Intake Visit Reasons: RUL nodule, CT results Intake Note: Patient here to discuss Chest CT results on 06-09-23. Band Splitter Required: No Accompanied by: Self / Same As Patient Allergies No Known Allergies Allergy (Verified 06/21/23 13:02) Medication List - Last Reconciled 06/21/23 by Godfrey Salgado MD albuterol sulfate 90 mcg/actuation 2 puffs inhalation QID PRN hydrochlorothiazide 25 mg PO DAILY insulin glargine (Lantus Solostar U-100 Insulin) units subcut metoprolol tartrate 50 mg PO BID rosuvastatin 40 mg PO DAILY sertraline 25 mg PO DAILY tramadol 50 mg PO Q8H PRN HPI HPI Comments History of Present Illness Details Patient presents for follow-up status post recent CT scan. She has no new respiratory issues or complaints. CT scan demonstrates complete resolution of a right upper lobe lung nodule. 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 Neck Other: No cervical, periclavicular, or axillary adenopathy. Chest; breath sounds bilaterally. GI Other: Very corpulent, soft, benign Assessment & Plan Assessment & Plan (1) Lung nodule seen on imaging study: Code(s): R91.1 - Solitary pulmonary nodule Plan: Plan is to repeat a a six-month CT surveillance scan of the chest in 6 months time and direct further therapy based on these results. In the meantime, patient has an adrenal issue which needs to be further investigated. Will order CT washout CT per radiologist recommendation and direct further therapy based on these results. (2) Adrenal mass: Code(s): E27.8 - Other specified disorders of adrenal gland Plan: See above (3) Emphysema lung: Code(s): J43.9 - Emphysema, unspecified Plan: Plan as noted above Orders: Orders CT chest wo con - High Res 6 Months R91.1 - Solitary pulmonary nodule CT adrenal wo/w IV con Today E27.8 - Other specified disorders of adrenal gland Coding Level of Care Code Est Pt Level 4 (15829) Diagnoses Lung nodule seen on imaging study R91.1 Adrenal mass E27.8 Emphysema lung J43.9
== END 2023-06-21 13:44 | disposition home or self-care (01) ==
PROVIDERS: PCP Hospitalist; Visit Provider Surgery
DX: R91.1 Solitary pulmonary nodule (principal); E27.8 Other specified disorders of adrenal gland; J43.9 Emphysema, unspecified
CPT/HCPCS: 99214

== ENCOUNTER → 2023-06-21 12:55 | Outpatient (BNVA) | payer MEDICARE, SELFPAY | PROVIDERS: PCP Hospitalist; Visit Provider Surgery | DX: R91.1 Solitary pulmonary nodule (principal); E27.8 Other specified disorders of adrenal gland; J43.9 Emphysema, unspecified | CPT/HCPCS: 99212 ==

== ENCOUNTER 2023-09-09 14:00 | Outpatient (AMB) | payer MEDICARE, SELFPAY ==
--- NOTE | 2023-09-09 14:06 | MHC.OFFVIS ---
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 Patient was referred here from her primary care doctor for consideration of Qutenza topical application. Reports burning sensation to the bottom of both feet that has been ongoing for several years. Pain today is rated as a 3/10, constant, worse in the evenings. 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 Currently taking Lantus, metformin and Jardiance prescribed by her primary care doctor. Awaiting an appointment to establish care. Most recent A1c not known at this time In terms of muscle damage condition is described as aching, itching, burning. Pain is negatively impacting patient's enjoyment of life, general activity, sleeping. Patient is also endorsing right wrist and elbow pain, this has been ongoing for many years. She has not been evaluated by Orthopedics for this. 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 Answers questions appropriately. Fully engaged in examination. Skin: warm, dry, intact. No visible wounds, lesions, open areas identified. Light touch sensation intact. HEENT: Normocephalic. Hearing intact. Cardiac: External chest normal in appearance. Respiratory: No cough, audible wheezing or stridor. Abdomen: without gross distension. MS: No obvious swelling or deformities. Able to transition from sit to stand unassisted. Ambulates with bilaterally normal heel strike and toe off Neurological: Oriented to person, place, time and situation. Thought process intact. No gait abnormalities appreciated. Psychiatric: Appropriate mood and affect. Good judgment and insight. Assessment & Plan Assessment & Plan (1) Diabetic neuropathy: Code(s): E11.40 - Type 2 diabetes mellitus with diabetic neuropathy, unspecified Category: Medical (2) Right elbow pain: Code(s): M25.521 - Pain in right elbow Category: Medical Plan Suyapa presented to the office today for evaluation and management of her painful diabetic neuropathy. Discussed options for treatment including topical treatment, diagnostic interventional testing, epidural steroid injections, peripheral nerve stimulation with Sprint, RFA and more permanent neuromodulation. Informational pamphlets provided. Will submit PA for Qutenza topical application. Patient advised on procedure including preparation and EMLA application prior to appointment. She is aware treatment is done in office and he will be here for 30minutes during each visit. Patient also reports right elbow pain, she was referred to orthopedics for evaluation management. All questions and concerns have been answered and patient agrees with the plan. Patient aware he will be called to schedule appointment for Qutenza pending insurance approval. Orders: Referrals Orthopedics Referral M25.521 - Pain in right elbow Coding Level of Care Code New Pt Level 4 (34057) Diagnoses Diabetic neuropathy E11.40 Right elbow pain M25.521
[2023-09-09 14:12] VITALS: BP 152/70; PULSE 72; O2SAT 96; BMI 34.7
== END 2023-09-09 14:44 | disposition home or self-care (01) ==
PROVIDERS: PCP Physician Assistant Medical; Visit Provider Registered Nurse Emergency
DX: E11.40 Type 2 diabetes mellitus with diabetic neuropathy, unspecified (principal); M25.521 Pain in right elbow
CPT/HCPCS: 99204

== ENCOUNTER → 2023-09-09 14:00 | Outpatient (BNVA) | payer MEDICARE, SELFPAY | PROVIDERS: PCP Physician Assistant Medical; Visit Provider Registered Nurse Emergency | DX: M25.521 Pain in right elbow (principal); E11.40 Type 2 diabetes mellitus with diabetic neuropathy, unspecified | CPT/HCPCS: 99202 ==

== ENCOUNTER 2023-09-13 13:24 | Outpatient (AMB) | payer MEDICARE, SELFPAY ==
--- NOTE | 2023-09-13 13:22 | A.OFFVIS_ITS ---
Vital Signs 09/13/23 13:29 Height 5 ft 6.5 in Weight 220 lb 7.396 oz BMI 35.0 BP 140/62 H Blood Pressure Location Lt brachial Position Sitting Pulse 91 Pulse Source Pulse Oximeter Pulse Oximetry (%) 94 Oxygen Delivery Method Room Air Intake Visit Reasons: asthma Allergies No Known Allergies Allergy (Verified 09/13/23 13:34) HPI HPI asthma: Details: Suyapa is a pleasant 68 year old female, former smoker with 35+ pack year history, quit 2017 , with underlying HTN and CAD s/p stent. She was referred by PCP for pulmonary evaluation for dyspnea on exertion. She reports progressively worsening dyspnea on exertion, mostly stairs/hills. Denies wheezing, cough or chest tightness. She was prescribed albuterol in the past but reports tachycardiac and could not tolerate. She is not on any daily inhalers at this time. She denies any prior history of asthma. She denies any hospitalizations related to respiratory distress. She reports father, smoker with COPD otherwise denies any pertinent family history. No family history of lung cancer. 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 She had CT for prior smoking history 11/2022 which revealed 1 cm opacity of RUL and send to Dr. Salgado for evaluation. Repeat imaging performed 05/2023 revealed resolution of nodule and she is scheduled for repeat imaging in December. She is also under the care of cardiology for CAD. She reports having an echo last year to assess dyspnea and associated BLE edema. She denies orthopnea or PND. 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 Review of Systems Const Denies chills, Denies excessive sweating, Denies fever(s), Denies headache(s) and Denies night sweats Eyes Denies dry eyes, Denies irritation and Denies itchy eyes ENT Reports Normal hearing present, Denies headache(s), Denies nasal congestion, Denies nasal discharge, Denies post nasal drip and Denies sore throat Card Denies chest pain, Denies chest pain at rest, Denies chest pain with activity, Denies claudication, Denies leg edema, Denies orthopnea and Denies paroxysmal nocturnal dyspnea Resp Denies chest congestion, Denies cough, Denies excessive phlegm production, Denies pain on inspiration, Denies pain with cough, Denies stridor and Denies wheezing Neuro Reports Normal hearing present and Denies headache(s) Endo Denies excessive sweating Tc/Lymph Denies lymphadenopathy Aller/Immun Denies itchy eyes, Denies seasonal rhinorrhea and Denies wheezing Physical Exam Vital Signs: Last Vital Signs Pulse 91 09/13/23 13:29 BP 140/62 H 09/13/23 13:29 Pulse Ox 94 09/13/23 13:29 Oxygen Delivery Method Room Air 09/13/23 13:29 BMI result Body Mass Index 35.0 Const General: cooperative, healthy appearing, comfortable, no acute distress, well developed and alert Nutritional Appearance: obese Orientation/consciousness: patient oriented x3 Limitations: no limitations HEENT Head: Yes normal to inspection, Yes normocephalic and Yes atraumatic Ears: hearing grossly normal bilaterally and external ears normal Eyes General: appearance normal, both eyes and all related structures Eyelids: Yes eyelids normal Sclerae: sclerae normal EOM: EOMs intact bilaterally Neck Neck: Yes normal visual inspection and Yes no lymphadenopathy Lymphatic: no lymphadenopathy noted Chest Chest palpation & inspection: normal inspection of the chest Resp Other: faint bibasilar inspiratory crackles Effort & Inspection: normal respiratory effort, able to speak in complete sentences, no audible wheezes, no cough, no stridor, not tachypneic, no tripod positioning and no use of accessory muscles Cardio Jugular venous distension: no JVD Rate: regular rate Rhythm: regular rhythm Skin Other: warm, dry General skin exam: no rashes or lesions noted Neuro General: patient oriented x3 Cranial nerves: Yes Normal hearing present Cognition (Neuro): normal cognition Gait exam (Neuro): Normal gait present Extrem Other: trace BLE edema General: Yes normal to inspection and Yes capillary refill normal Psych Appearance: grossly normal and well kempt Speech and movement: Normal speech and movement present and Clear speech present Affect: normal affect Attitude: cooperative Thought process: Normal thought process present Thought content: Normal thought content present Insight: Good insight present (Psych) Judgement: Good judgement present (Psych) Results Reviewed Results Reviewed: [address] [address] [address] Scan Report Signed Patient: Suyapa Ortiz MR#: [id number] : 1955 Acct:[id number] Age/Sex: 68 / F ADM Date: 06/09/23 Loc: HO.CT Attending Dr: Godfrey Salgado MD Ordering Physician: Godfrey Salgado MD Date of Service: 06/09/23 Procedure(s): CT chest wo IV con Accession Number(s): [id number] cc: Mariela Acevedo MD; Godrfey Salgado MD~ EXAMINATION: CT CHEST WITHOUT CONTRAST CLINICAL INFORMATION: Right upper lobe pulmonary nodule COMPARISON: 12/11/2022 TECHNIQUE: Multidetector volumetric CT imaging of the chest was done. Axial MIP volume rendering provided. Sagittal and coronal reformatted images were obtained. This CT examination was performed using dose optimization techniques as appropriate, variously including the following: *Automated exposure control *Adjustment of mA and/or kV according to patient size (this includes techniques or standardized protocols for targeted exams where dose is matched to indication/reason for exam; i.e. extremities or head) *Use of iterative reconstruction technique DLP: 250 mGy-cm FINDINGS: CLINICAL PROVIDER TRAINER: No acute cardiopulmonary disease. LUNGS: Trachea and bronchi are patent. Scattered atelectasis. 1 cm opacity right upper lobe seen on previous study has resolved. MEDIASTINUM: Unchanged prominent thyroid without nodules. Nonspecific heterogeneous tiny lymph nodes. No pathologic lymphadenopathy. Prominent heart. Trace pericardial fluid. Nonaneurysmal aorta with atherosclerotic calcifications. Nonenlarged pulmonary arteries. CORONARY ARTERY CALCIFICATION: Moderately severe. PLEURA: There is no pleural effusion. No pleural mass or thickening. AXILLA: Enlarged right axillary lymph nodes, largest measuring 3 cm. Nonspecific left axillary lymph nodes. UPPER ABDOMEN: 2.7 cm homogeneous left adrenal lesion with Hounsfield units measuring 37, this previously measured 2.2 cm on 12/11/2022. OSSEOUS/SOFT TISSUE STRUCTURES: Benign-appearing right breast calcification. Dextroscoliosis. CT/CT chest wo IV con IMPRESSION: Resolution 1 cm right upper lobe pulmonary opacity. Slight increase in size 2.7 cm left adrenal lesion, possibly adenoma. Adrenal washout CT or chemical shift MRI recommended. Axillary adenopathy, largest on the right measuring 3 cm. Bilateral axillary ultrasounds recommended. Fleischner guidelines were followed. Dictated By: Suyapa Lemus MD Signed By: <Electronically signed by Suyapa Lemus MD in OV> 06/11/23 1300 DD/ 1422 TD/TT: Nurse Rn Bsn: Assessment & Plan Assessment & Plan (1) COPD (chronic obstructive pulmonary disease): Code(s): J44.9 - Chronic obstructive pulmonary disease, unspecified Category: Medical (2) Nicotine dependence, cigarettes, uncomplicated: Code(s): F17.210 - Nicotine dependence, cigarettes, uncomplicated Category: Medical Plan Suyapa's symptoms are likely related to underlying COPD, unclear severity. Will send for PFT to evaluate. Will also trial levalbuterol as she could not tolerate albuterol due to tachycardia. Will further discuss trialing ICS/LABA. Chest CT revealed bibasbilar ground glass areas, will continue to monitor. Patient already has CT chest ordered. Will also request prior echo and records from cardiology. All questions were answered and patient is in agreement of plan. Will follow up to review results or sooner if needed. Orders: Orders PFT pulmonary function test Today J44.9 - Chronic obstructive pulmonary disease, unspecified Medications: New levalbuterol tartrate 45 mcg/actuation 1 puff inhalation Q4-6H PRN 15 grams 3RF shortness of breath Coding Level of Care Code New Pt Level 4 (37450) Diagnoses COPD (chronic obstructive pulmonary disease) J44.9 Nicotine dependence, cigarettes, uncomplicated F17.210
[2023-09-13 13:29] VITALS: BP 140/62; PULSE 91; O2SAT 94; BMI 35.0
== END 2023-09-13 14:06 | disposition home or self-care (01) ==
PROVIDERS: PCP Physician Assistant Medical; Visit Provider Nurse Practitioner Family
DX: J44.9 Chronic obstructive pulmonary disease, unspecified (principal); F17.210 Nicotine dependence, cigarettes, uncomplicated
CPT/HCPCS: 99204

== ENCOUNTER → 2023-09-13 13:24 | Outpatient (BNVA) | payer MEDICARE, SELFPAY | PROVIDERS: PCP Physician Assistant Medical; Visit Provider Nurse Practitioner Family | DX: J44.9 Chronic obstructive pulmonary disease, unspecified (principal); I10 Essential (primary) hypertension; I25.10 Atherosclerotic heart disease of native coronary artery without angina pectoris; F17.210 Nicotine dependence, cigarettes, uncomplicated | CPT/HCPCS: 99202 ==

== ENCOUNTER 2023-09-22 14:42 | Outpatient (AMB) | payer MEDICARE, SELFPAY ==
--- NOTE | 2023-09-22 14:45 | A.OFFVIS_ITS ---
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 Patient reports her ongoing pain for a couple of months. No hx of injury. Pain is worse when she has to extend her arm, showering and unable to push. She expresses that her whole right arm hurts but her elbow hurts the most. Patient is looking for pain medication to help relieve her pain. She finds relief with Tylenol Arthritis and tramodol. 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 She denies injury. She was seen by pain management who claims she had been experiencing right elbow pain for many years however on exam today patient states that she has had pain for the last few months. She states that she has limited range of motion and discomfort which is inside of the elbow. She denies numbness and tingling. She does have a history of diabetic neuropathy. No treatment to date. 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 She has no pain over the mediolateral epicondyle. She does have tenderness along the insertion point of the triceps tendon. She has limited range of motion with flexion and extension and pain with supination or pronation. Negative Tinel's. Results Reviewed Results Reviewed: X-rays of the right elbow obtained in the office today are negative for any acute fractures or dislocations. She does have mild arthritis and some evidence of tendinitis along the triceps tendon. Assessment & Plan Assessment & Plan (1) Strain of right elbow: Code(s): S46.911A - Strain of unspecified muscle, fascia and tendon at shoulder and upper arm level, right arm, initial encounter Category: Medical Plan Based on her x-rays there is no evidence of severe arthritis or anything mechanically that would be limiting her range of motion. I did offer her physical therapy to work on range of motion which she declined mentioning how her job consists of a lot of lifting and movement which is similar to physical therapy. I did offer an MRI of the right elbow to further evaluate the joint itself to see if there is any other abnormalities which would be limiting her motion which she is content with. Once this was complete I will contact her to discuss further treatment options. Orders: Orders MR elbow RT wo con Today S46.911A - Strain of unspecified muscle, fascia and tendon at shoulder and upper arm level, right arm, initial encounter XR elbow RT min 3V Today M25.521 - Pain in right elbow Coding Level of Care Code New Pt Level 3 (61162) Diagnoses Strain of right elbow S46.911A
== END 2023-09-22 15:52 | disposition home or self-care (01) ==
PROVIDERS: PCP Physician Assistant Medical; Visit Provider Physician Assistant
DX: S46.911A Strain of unspecified muscle, fascia and tendon at shoulder and upper arm level, right arm, initial encounter (principal)
CPT/HCPCS: 99213

== ENCOUNTER 2023-09-22 14:42 | Outpatient (REF) | payer MEDICARE, SELFPAY ==
--- NOTE | ~2023-09-22 | XR_ITS ---
EXAMINATION: XR ELBOW, RIGHT CLINICAL INFORMATION: Right elbow pain. COMPARISON: None available. TECHNIQUE: AP, lateral, and oblique views of the right elbow. FINDINGS: Moderate degenerative changes with hypertrophic change at the elbow joints. Hypertrophic bony exostosis with spurring along the adjacent proximal diaphyseal cortices of the radius and ulna of indeterminate etiology, possibly related to prior trauma versus more chronic process. Recommend correlation with clinical exam to determine further management including possible additional imaging with MRI. XR/XR elbow RT min 3V IMPRESSION: Moderate degenerative changes with hypertrophic change at the elbow joints. Hypertrophic bony exostosis with spurring along the adjacent proximal diaphyseal cortices of the radius and ulna of indeterminate etiology, possibly related to prior trauma versus more chronic process. Recommend correlation with clinical exam to determine further management including possible additional imaging with MRI.
== END 2023-09-22 14:43 | disposition home or self-care (01) ==
LOC: HO.HOSX 14:42
PROVIDERS: PCP Physician Assistant Medical; Visit Provider Physician Assistant
DX: M25.521 Pain in right elbow (principal); S46.911A Strain of unspecified muscle, fascia and tendon at shoulder and upper arm level, right arm, initial encounter; X58.XXXA Exposure to other specified factors, initial encounter; Y93.9 Activity, unspecified; Y92.9 Unspecified place or not applicable; Y99.9 Unspecified external cause status
CPT/HCPCS: 73080; 99212

== ENCOUNTER 2023-11-17 09:50 | Outpatient (REF) | payer MEDICARE, SELFPAY | END 2023-11-17 09:51 | disposition home or self-care (01) | LOC: HO.MRI 09:50 | PROVIDERS: PCP Physician Assistant Medical; Visit Provider Physician Assistant | DX: Z13.89 Encounter for screening for other disorder (principal) ==

== ENCOUNTER 2023-12-13 08:28 | Outpatient (AMB) | payer MEDICARE, SELFPAY ==
--- NOTE | 2023-12-12 11:49 | A.OFFVIS_ITS ---
Vital Signs 12/13/23 08:33 Height 5 ft 6.5 in BMI Reason not done Patient refused/unable BP 146/64 H Blood Pressure Location Rt brachial Position Sitting Pulse 78 Pulse Source Pulse Oximeter Pulse Oximetry (%) 95 Oxygen Delivery Method Room Air Intake Visit Reasons: Asthma Allergies No Known Allergies Allergy (Verified 12/13/23 08:37) HPI HPI Asthma: Details: Suyapa is a pleasant 68 year old female, former smoker with 35+ pack year history, quit 2018 , with underlying HTN and CAD s/p stent. She reports progressively worsening dyspnea on exertion, mostly stairs/hills. Denies wheezing, cough or chest tightness. At the last visit she was trialed on Levalbuterol, as she previously could not tolerate albuterol d/t tachycardiac. She reports significant improvements with levalaubterol using PRN. She currently denies any respiratory symptoms. Of note, she was being monitored for a 1 cm opacity of RUL, which completely resolved on scan from 05/2023. She was supposed to have a [address] however this was canceled for unknown reasons. She was given the number for centralized scheduling and will reschedule this. She was also sent for PFT however this has yet to be scheduled. Prior echo from 2018 unremarkable. 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 Review of Systems Const Denies chills, Denies excessive sweating, Denies fever(s), Denies headache(s) and Denies night sweats Eyes Denies dry eyes, Denies irritation and Denies itchy eyes ENT Reports Normal hearing present, Denies headache(s), Denies nasal congestion, Denies nasal discharge, Denies post nasal drip and Denies sore throat Card Denies chest pain, Denies chest pain at rest, Denies chest pain with activity, Denies claudication, Denies leg edema, Denies dyspnea on exertion, Denies orthopnea and Denies paroxysmal nocturnal dyspnea Resp Denies chest congestion, Denies cough, Denies excessive phlegm production, Denies pain on inspiration, Denies pain with cough, Denies dyspnea on exertion, Denies stridor and Denies wheezing Neuro Reports Normal hearing present and Denies headache(s) Endo Denies excessive sweating Tc/Lymph Denies lymphadenopathy Aller/Immun Denies itchy eyes, Denies seasonal rhinorrhea and Denies wheezing Physical Exam Vital Signs: Last Vital Signs Pulse 78 12/13/23 08:33 BP 146/64 H 12/13/23 08:33 Pulse Ox 95 12/13/23 08:33 Oxygen Delivery Method Room Air 12/13/23 08:33 Const General: cooperative, healthy appearing, comfortable, no acute distress, well developed and alert Nutritional Appearance: obese Orientation/consciousness: patient oriented x3 Limitations: no limitations HEENT Head: Yes normal to inspection, Yes normocephalic and Yes atraumatic Ears: hearing grossly normal bilaterally and external ears normal Eyes General: appearance normal, both eyes and all related structures Eyelids: Yes eyelids normal Sclerae: sclerae normal EOM: EOMs intact bilaterally Neck Neck: Yes normal visual inspection and Yes no lymphadenopathy Lymphatic: no lymphadenopathy noted Chest Chest palpation & inspection: normal inspection of the chest Resp Effort & Inspection: normal respiratory effort, able to speak in complete sentences, no audible wheezes, no cough, no stridor, not tachypneic, no tripod positioning and no use of accessory muscles Auscultation: no crackles, no wheezes and diminished lung sounds Cardio Jugular venous distension: no JVD Rate: regular rate Rhythm: regular rhythm Skin Other: warm, dry General skin exam: no rashes or lesions noted Neuro General: patient oriented x3 Cranial nerves: Yes Normal hearing present Cognition (Neuro): normal cognition Gait exam (Neuro): Normal gait present Extrem Other: trace BLE edema General: Yes normal to inspection and Yes capillary refill normal Psych Appearance: grossly normal and well kempt Speech and movement: Normal speech and movement present and Clear speech present Affect: normal affect Attitude: cooperative Thought process: Normal thought process present Thought content: Normal thought content present Insight: Good insight present (Psych) Judgement: Good judgement present (Psych) Assessment & Plan Assessment & Plan (1) COPD (chronic obstructive pulmonary disease): Code(s): Jairon44.9 - Chronic obstructive pulmonary disease, unspecified Category: Medical (2) Nicotine dependence, cigarettes, uncomplicated: Code(s): F17.210 - Nicotine dependence, cigarettes, uncomplicated Category: Medical Plan Suyapa reports excellent control of dyspnea using levalbuterol, advised to continue. Discussed issues scheduling the PFT and offered to send order elsewhere however patient will wait until it is scheduled at [facility] [place]. Patient had surveillence chest CT ordered by Dr. Salgado for previous 1 cm RUL opacity which had resolved on 05/2023 scan. Encouraged patient to call centralized scheduling to get this CT scheduled and will review at next visit. All questions were answered and patient is in agreement of plan. Will follow up in three months or sooner if needed. Medications: Refilled levalbuterol tartrate 45 mcg/actuation 1 puff inhalation Q4-6H PRN 15 grams 3RF shortness of breath Discontinued albuterol sulfate 90 mcg/actuation Discontinued Reason: Patient Completed Course 2 puffs inhalation QID PRN 6.7 grams 0RF shortness of breath or wheezing Coding Level of Care Code Est Pt Level 3 (11370) Diagnoses COPD (chronic obstructive pulmonary disease) J44.9 Nicotine dependence, cigarettes, uncomplicated F17.210
[2023-12-13 08:33] VITALS: BP 146/64; PULSE 78; O2SAT 95
== END 2023-12-13 08:53 | disposition home or self-care (01) ==
PROVIDERS: PCP Physician Assistant Medical; Visit Provider Nurse Practitioner Family
DX: J44.9 Chronic obstructive pulmonary disease, unspecified (principal); F17.210 Nicotine dependence, cigarettes, uncomplicated
CPT/HCPCS: 99213

== ENCOUNTER → 2023-12-13 08:28 | Outpatient (BNVA) | payer MEDICARE, SELFPAY | PROVIDERS: PCP Physician Assistant Medical; Visit Provider Nurse Practitioner Family | DX: J44.9 Chronic obstructive pulmonary disease, unspecified (principal); F17.210 Nicotine dependence, cigarettes, uncomplicated | CPT/HCPCS: 99212 ==

== ENCOUNTER 2023-12-16 08:29 | Outpatient (REF) | payer MEDICARE, SELFPAY ==
--- NOTE | ~2023-12-16 | CT_ITS ---
EXAMINATION: CT CHEST WITHOUT CONTRAST HIGH RESOLUTION CLINICAL INFORMATION: R91.1 - Solitary pulmonary nodule. COMPARISON: No pertinent prior studies are available for comparison. TECHNIQUE: Multidetector volumetric imaging was performed from the thoracic inlet through the lung bases without contrast. Sagittal and coronal reformatted images were obtained on the technologist workstation. Soft tissue and lung algorithms evaluated. Thick slab MIP images were performed to increase nodule conspicuity. This CT examination was performed using dose optimization techniques as appropriate, variously including the following: *Automated exposure control *Adjustment of mA and/or kV according to patient size (this includes techniques or standardized protocols for targeted exams where dose is matched to indication/reason for exam; i.e. extremities or head) *Use of iterative reconstruction technique DLP: 344 mGy-cm. FINDINGS: Central airways are patent. Lungs are well aerated. There is mild atelectasis dependently and also within the lingula and right middle lobe. There is no lobar consolidation. No pleural effusion or pneumothorax. No suspicious pulmonary nodules. The heart is normal in size. Coronary artery calcification are present. There is no pericardial effusion. Normal caliber thoracic aorta. No gross mediastinal or hilar lymphadenopathy appreciated on today's noncontrast imaging. A few enlarged right axillary lymph nodes persist, however, the degree of right axillary lymphadenopathy appears decreased. Visualized portions of the upper abdomen demonstrate a stable 2.6 cm left adrenal nodule (previously 2.7 cm). Mild diffuse degenerative changes of the spine. CT/CT chest wo con - High Res IMPRESSION: 1. No suspicious pulmonary nodules. 2. A few enlarged right axillary lymph nodes persist, however, the degree of right axillary lymphadenopathy appears decreased. Clinical correlation recommended. 3. Stable 2.6 cm left adrenal nodule, nonspecific. Electronically signed by: Eladio Olivia MD 01/14/2024 09:59 AM EDT
== END 2023-12-16 08:30 | disposition home or self-care (01) ==
LOC: HO.CT 08:29
PROVIDERS: Visit Provider Surgery
DX: R91.1 Solitary pulmonary nodule (principal)
CPT/HCPCS: 71250

== ENCOUNTER 2024-01-24 08:55 | Outpatient (AMB) | payer MEDICARE, SELFPAY ==
--- NOTE | 2024-01-23 20:17 | MHC.OFFVIS ---
Vital Signs 01/24/24 08:58 Height 5 ft 6.5 in Weight 220 lb 7.396 oz BMI 35.0 BP 144/62 H Blood Pressure Location Rt brachial Position Sitting Pulse 71 Pulse Source Pulse Oximeter Pulse Oximetry (%) 97 Oxygen Delivery Method Room Air Intake Visit Reasons: FU/ CT results Allergies No Known Allergies Allergy (Verified 01/24/24 09:02) HPI HPI FU/ CT results: Details: Suyapa is a pleasant 68 year old female, former smoker with 35+ pack year history, quit 2017 , with underlying HTN and CAD s/p stent. She has been well controlled with levalbuterol PRN, reports using once per week at this time. She had prior abnormal chest CT which revealed 1 cm opacity of RUL, which completely resolved on scan from 05/2023. She had repeat chest CT in November [address] Salgado which she has not reviewed yet. She denies any visits to urgent care or hospitalizations since last visit related to respiratory distress. She was also sent for PFT however this has yet to be scheduled. 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/ [employer] Review of Systems Const Denies chills, Denies excessive sweating, Denies fever(s), Denies headache(s) and Denies night sweats Eyes Denies dry eyes, Denies irritation and Denies itchy eyes ENT Reports Normal hearing present, Denies headache(s), Denies nasal congestion, Denies nasal discharge, Denies post nasal drip and Denies sore throat Card Denies chest pain, Denies chest pain at rest, Denies chest pain with activity, Denies claudication, Denies leg edema, Denies dyspnea on exertion, Denies orthopnea and Denies paroxysmal nocturnal dyspnea Resp Denies chest congestion, Reports cough (intermittent), Denies excessive phlegm production, Denies pain on inspiration, Denies pain with cough, Denies dyspnea on exertion, Denies stridor and Denies wheezing Neuro Reports Normal hearing present and Denies headache(s) Endo Denies excessive sweating Tc/Lymph Denies lymphadenopathy Aller/Immun Denies itchy eyes, Denies seasonal rhinorrhea and Denies wheezing Physical Exam Vital Signs: Last Vital Signs Pulse 71 01/24/24 08:58 BP 144/62 H 01/24/24 08:58 Pulse Ox 97 01/24/24 08:58 Oxygen Delivery Method Room Air 01/24/24 08:58 BMI result Body Mass Index 35.0 Const General: cooperative, healthy appearing, comfortable, no acute distress, well developed and alert Nutritional Appearance: obese Orientation/consciousness: patient oriented x3 Limitations: no limitations HEENT Head: Yes normal to inspection, Yes normocephalic and Yes atraumatic Ears: hearing grossly normal bilaterally and external ears normal Eyes General: appearance normal, both eyes and all related structures Eyelids: Yes eyelids normal Sclerae: sclerae normal EOM: EOMs intact bilaterally Neck Neck: Yes normal visual inspection and Yes no lymphadenopathy Lymphatic: no lymphadenopathy noted Chest Chest palpation & inspection: normal inspection of the chest Resp Effort & Inspection: normal respiratory effort, able to speak in complete sentences, no audible wheezes, no cough, no stridor, not tachypneic, no tripod positioning and no use of accessory muscles Auscultation: no crackles, no wheezes and diminished lung sounds Cardio Jugular venous distension: no JVD Rate: regular rate Rhythm: regular rhythm Skin Other: warm, dry General skin exam: no rashes or lesions noted Neuro General: patient oriented x3 Cranial nerves: Yes Normal hearing present Cognition (Neuro): normal cognition Gait exam (Neuro): Normal gait present Extrem Other: trace BLE edema General: Yes normal to inspection and Yes capillary refill normal Psych Appearance: grossly normal and well kempt Speech and movement: Normal speech and movement present and Clear speech present Affect: normal affect Attitude: cooperative Thought process: Normal thought process present Thought content: Normal thought content present Insight: Good insight present (Psych) Judgement: Good judgement present (Psych) Results Reviewed Results Reviewed: [address] [address] [address] Scan Report Signed Patient: Suyapa Ortiz MR#: [id number] : 1955 Acct:[id number] Age/Sex: 68 / F ADM Date: 12/16/23 Loc: HO.CT Attending Dr: Godfrey Salgado MD Ordering Physician: Godfrey Salgado MD Date of Service: 12/16/23 Procedure(s): CT chest wo con - High Res Accession Number(s): [id number] cc: Godfrey Salgado MD~ EXAMINATION: CT CHEST WITHOUT CONTRAST HIGH RESOLUTION CLINICAL INFORMATION: R91.1 - Solitary pulmonary nodule. COMPARISON: No pertinent prior studies are available for comparison. TECHNIQUE: Multidetector volumetric imaging was performed from the thoracic inlet through the lung bases without contrast. Sagittal and coronal reformatted images were obtained on the technologist workstation. Soft tissue and lung algorithms evaluated. Thick slab MIP images were performed to increase nodule conspicuity. This CT examination was performed using dose optimization techniques as appropriate, variously including the following: *Automated exposure control *Adjustment of mA and/or kV according to patient size (this includes techniques or standardized protocols for targeted exams where dose is matched to indication/reason for exam; i.e. extremities or head) *Use of iterative reconstruction technique DLP: 344 mGy-cm. FINDINGS: Central airways are patent. Lungs are well aerated. There is mild atelectasis dependently and also within the lingula and right middle lobe. There is no lobar consolidation. No pleural effusion or pneumothorax. No suspicious pulmonary nodules. The heart is normal in size. Coronary artery calcification are present. There is no pericardial effusion. Normal caliber thoracic aorta. No gross mediastinal or hilar lymphadenopathy appreciated on today's noncontrast imaging. A few enlarged right axillary lymph nodes persist, however, the degree of right axillary lymphadenopathy appears decreased. Visualized portions of the upper abdomen demonstrate a stable 2.6 cm left adrenal nodule (previously 2.7 cm). Mild diffuse degenerative changes of the spine. CT/CT chest wo con - High Res IMPRESSION: 1. No suspicious pulmonary nodules. 2. A few enlarged right axillary lymph nodes persist, however, the degree of right axillary lymphadenopathy appears decreased. Clinical correlation recommended. 3. Stable 2.6 cm left adrenal nodule, nonspecific. Electronically signed by: Eladio Olivia MD 01/14/2024 09:59 AM EDT Dictated By: Eladio Olivia MD Signed By: <Electronically signed by Eladio Olivia MD in OV> 01/14/24 0959 DD/ 0843 TD/TT: 12/16/23 0850 Sap Mobility Architect: Assessment & Plan Assessment & Plan (1) COPD (chronic obstructive pulmonary disease): Code(s): J44.9 - Chronic obstructive pulmonary disease, unspecified Category: Medical (2) Nicotine dependence, cigarettes, uncomplicated: Code(s): F17.210 - Nicotine dependence, cigarettes, uncomplicated Category: Medical (3) Atelectasis: Code(s): J98.11 - Atelectasis Category: Medical Plan Reviewed chest CT which revealed mild atelectasis dependently and also within the lingula and right middle lobe, without the presence of suspicious pulmonary nodules. Will have repeat chest CT in one year and send for CXR in 6 weeks to assess for resolution of atelectasis. She does note occasional productive cough in the AM with clear to white sputum. Encouraged deep breathing and intentional coughing to improve airway clearance. At this time, she continues to report good control of respiratory symptoms with levalbuterol PRN, advised to continue. All questions were answered and patient is in agreement of plan. Will follow up in three months or sooner if needed. Orders: Orders XR chest 2V 6 Weeks J98.11 - Atelectasis CT chest wo IV con 10 Months F17.210 - Nicotine dependence, cigarettes, uncomplicated, R91.1 - Solitary pulmonary nodule Coding Level of Care Code Est Pt Level 4 (51814) Diagnoses COPD (chronic obstructive pulmonary disease) J44.9 Nicotine dependence, cigarettes, uncomplicated F17.210 Atelectasis J98.11
[2024-01-24 08:58] VITALS: BP 144/62; PULSE 71; O2SAT 97; BMI 35.0
== END 2024-01-24 09:20 | disposition home or self-care (01) ==
PROVIDERS: PCP Physician Assistant Medical; Visit Provider Nurse Practitioner Family
DX: J44.9 Chronic obstructive pulmonary disease, unspecified (principal); F17.210 Nicotine dependence, cigarettes, uncomplicated; J98.11 Atelectasis
CPT/HCPCS: 99214

== ENCOUNTER → 2024-01-24 08:55 | Outpatient (BNVA) | payer MEDICARE, SELFPAY | PROVIDERS: PCP Physician Assistant Medical; Visit Provider Nurse Practitioner Family | DX: J44.9 Chronic obstructive pulmonary disease, unspecified (principal); J98.11 Atelectasis; I25.10 Atherosclerotic heart disease of native coronary artery without angina pectoris; I10 Essential (primary) hypertension; Z87.891 Personal history of nicotine dependence | CPT/HCPCS: 99212 ==

== ENCOUNTER 2024-02-16 09:25 | Outpatient (AMB) | payer MEDICARE, SELFPAY ==
--- NOTE | 2024-02-16 09:33 | A.OFFVIS_ITS ---
Vital Signs 3 02/16/24 09:37 Height 5 ft 6.5 in Weight 220 lb BMI 35.0 Intake Visit Reasons: OV- Right elbow MRI review Intake Note: Suyapa a 68 year old right hand dominant female who presents today for a right elbow MRI review. Patient reports she continues to have discomfort in her elbow with use of her arm. Allergies No Known Allergies Allergy (Verified 02/16/24 09:37) Medication List - Last Reconciled 02/16/24 by Ubaldo Gomez PA-C celecoxib (Celebrex) 200 mg PO BID 30 days empagliflozin (Jardiance) 10 mg PO DAILY hydralazine 25 mg PO BID hydrochlorothiazide 25 mg PO DAILY insulin glargine (Lantus Solostar U-100 Insulin) units subcut levalbuterol tartrate 45 mcg/actuation 1 puff inhalation Q4-6H PRN lidocaine-prilocaine 2.5-2.5 % 1 appl topical ONCE metformin 1,000 mg PO BID metoprolol tartrate 50 mg PO BID rosuvastatin 40 mg PO DAILY sertraline 25 mg PO DAILY tramadol 50 mg PO Q8H PRN HPI HPI OV- Right elbow MRI review: Details: 68-year-old right hand dominant female who returns to the office today for an MRI review of right elbow. She continues to have discomfort in her elbow with the use of her arm. 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 She has no pain over the mediolateral epicondyle. She does have tenderness along the insertion point of the triceps tendon. She has limited range of motion with flexion and extension and pain with supination or pronation. Negative Tinel's. Results Reviewed Results Reviewed: MRI RIGHT ELBOW Assessment & Plan Assessment & Plan (1) Arthritis of right elbow: Code(s): M19.021 - Primary osteoarthritis, right elbow Category: Medical Plan We reviewed her MRI findings in the office today. This correlates more to an inflammatory/arthritic process. A prescription of Celebrex was given to take twice a day and a referral to rheumatology was placed along with occupational therapy. She would like to hold off on occupational therapy until she sees by rheumatology however, I placed an order and she can contact when needed. she will see me back as needed. Orders: Orders 2 OT Evaluation and Treatment Today M19.021 - Primary osteoarthritis, right elbow, S46.911A - Strain of unspecified muscle, fascia and tendon at shoulder and upper arm level, right arm, initial encounter Referrals 2 Rheumatology Referral M19.021 - Primary osteoarthritis, right elbow Medications: New 2 celecoxib (Celebrex) 200 mg PO BID 60 caps 3RF 30 days Patient Instructions: Scribed for Ubaldo Gomez PA-C, by Lc Varela medical housekeeper, on 02/16/2024 at 9:30 AM EST.? I, Ubaldo Gomez PA-C, have personally reviewed and agree with the information entered by the scribe. Coding Level of Care Code Est Pt Level 3 (57209) Complex EM visit Add On G2211 Diagnoses Arthritis of right elbow M19.021
[2024-02-16 09:37] VITALS: BMI 35.0
== END 2024-02-16 09:51 | disposition home or self-care (01) ==
PROVIDERS: PCP Physician Assistant Medical; Visit Provider Physician Assistant
DX: M19.021 Primary osteoarthritis, right elbow (principal)
CPT/HCPCS: 99214; G2211

== ENCOUNTER → 2024-02-16 09:25 | Outpatient (BNVA) | payer MEDICARE, SELFPAY | PROVIDERS: PCP Physician Assistant Medical; Visit Provider Physician Assistant | DX: M19.021 Primary osteoarthritis, right elbow (principal) | CPT/HCPCS: 99212 ==

== ENCOUNTER 2024-02-25 11:52 | Outpatient (REF) | payer MEDICARE, SELFPAY ==
--- NOTE | ~2024-02-25 | MM_ITS ---
EXAMINATION: MM SCREENING DIGITAL BREAST TOMOSYNTHESIS, BILATERAL CLINICAL INFORMATION: Screening. Asymptomatic. COMPARISON: Mammography: Comparison is made with available priors TECHNIQUE: Digital breast mammography with tomosynthesis is performed in both the craniocaudal and mediolateral oblique views along with computer-aided detection (CAD). FINDINGS: There are scattered areas of fibroglandular density (ACR BI-RADS breast composition Category b). Right marker clip. There are no significant masses, abnormal calcifications, or other abnormalities. MM/MM tomosynthesis screening BI IMPRESSION: No mammographic evidence of malignancy. ASSESSMENT: BI-RADS BI-RADS 2 - Benign Findings RECOMMENDATION: Routine annual mammography screening. 1 year F/U This examination should not preclude the clinical evaluation of a suspicious palpable abnormality. This patient's information was entered into a reminder system with a target due date for their next mammogram. Electronically signed by: Miriam Michael DO 03/09/2024 09:42 PM EDT
== END 2024-02-25 11:53 | disposition home or self-care (01) ==
LOC: HO.MAMMO 11:52
PROVIDERS: PCP Physician Assistant Medical; Visit Provider Physician Assistant Medical
DX: Z12.31 Encounter for screening mammogram for malignant neoplasm of breast (principal)
CPT/HCPCS: 77063; 77067

== ENCOUNTER → 2024-02-25 12:00 | Outpatient (BNV) | payer MEDICARE, SELFPAY | PROVIDERS: PCP Physician Assistant Medical; Visit Provider Internal Medicine | DX: Z12.31 Encounter for screening mammogram for malignant neoplasm of breast (principal) | CPT/HCPCS: 77063; 77067 ==

== ENCOUNTER 2024-02-29 14:00 | Outpatient (REF) | payer MEDICARE, SELFPAY ==
[2024-03-01 07:41] LABS: Lymphocytes Synovial Fluid 7 %; Monocytes Synovial Fluid 4 %; Neutrophils Synovial Fluid 89 %; RBC Synovial Fluid Manual 2980 mm*3; Source Synovial Fluid RIGHT ELBOW
[2024-03-01 07:42] LABS: WBC Synovial Fluid Manual 18780 mm*3
== END 2024-02-29 14:01 | disposition home or self-care (01) ==
LOC: HO.LAB 14:00
PROVIDERS: PCP Physician Assistant Medical; Visit Provider Student in an Organized Health Care Education/Training Program
DX: M19.021 Primary osteoarthritis, right elbow (principal); M11.20 Other chondrocalcinosis, unspecified site
CPT/HCPCS: 20605; 87070; 87073; 87205; 89051; 89060; 99202

== ENCOUNTER 2024-02-29 14:00 | Outpatient (AMB) | payer MEDICARE, SELFPAY ==
[2024-02-29 14:06] VITALS: BP 138/78; PULSE 87; O2SAT 95; BMI 34.7
--- NOTE | 2024-02-29 14:06 | A.OFFVIS_ITS ---
Vital Signs 02/29/24 14:06 Height 5 ft 6.5 in Weight 218 lb BMI 34.7 BP 138/78 Blood Pressure Location Lt brachial Position Sitting Pulse 87 Pulse Source Pulse Oximeter Pulse Oximetry (%) 95 Oxygen Delivery Method Room Air Intake Visit Reasons: multiple joint pain Intake Note: Patient is here as a new patient, internally referred by orthopedics for multiple joint pain. She states the Celebrex is helping her. Allergies No Known Allergies Allergy (Verified 02/29/24 14:09) Medication List - Last Reconciled 02/29/24 by Argenis Brenner MD celecoxib (Celebrex) 200 mg PO BID 30 days colchicine 0.6 mg PO BID 90 days empagliflozin (Jardiance) 10 mg PO DAILY hydralazine 25 mg PO BID hydrochlorothiazide 25 mg PO DAILY insulin glargine (Lantus Solostar U-100 Insulin) units subcut levalbuterol tartrate 45 mcg/actuation 1 puff inhalation Q4-6H PRN lidocaine-prilocaine 2.5-2.5 % 1 appl topical ONCE metformin 1,000 mg PO BID metoprolol tartrate 50 mg PO BID rosuvastatin 40 mg PO DAILY sertraline 25 mg PO DAILY tramadol 50 mg PO Q8H PRN HPI Comments Details: Patient is a 68-year-old female former smoker with 35+ pack years, hypertension complicated by coronary artery disease status post stent, diabetes on insulin complicated by diabetic neuropathy, and COPD who presents for evaluation of inflammatory arthritis. She has been seeing orthopedics for strain of her right elbow since September of this year. An x-ray and an MRI of the right elbow without contrast was ordered. XR Right Elbow showed moderate degenerative changes MRI of the right elbow showed diffuse synovial thickening of the elbow joint especially in the posterior olecranon fossa region as well as in the region surrounding the neck of the radius and IL ligament. There was also a small to moderate joint effusion present. This was of uncertain etiology and could represent acute synovitis which could be traumatic or infection related. In the differential was also potentially inflammatory arthritis. Given this she was referred to Rheumatology for further management. Patient notes that she has been having pain in her right shoulder, elbow and wrist for the past year. She notes that it started with the wrist. Denies swelling but just noted that if she would use it she would notice the pain. Denies trauma. Right handed female. 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 Review of Systems Const Details: Review of Systems Constitutional: Denies fever, chills, weight loss ENT: Denies vision changes, eye pain or eye redness, dental caries, dry mouth GI: Denies nausea, vomiting, diarrhea, abdominal pain, change in BM Pulm: Denies SOB, SARAVIA, hemoptysis, wheezing Cards: Denies chest pain, palpitations Skin: Denies Raynaud's, rash, nail changes, photosensitivity, MUD TANK 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 ?Pupils equal round and reactive to light. ?No lymphadenopathy. ?Normal dentition. Respiratory System Normal respiratory effort and able to speak in complete sentences. ?Clear to auscultation bilaterally. ?No crackles, rales, rhonchi, wheezes heard. Cardiac System Regular rate and rhythm. ?S1 and S2 heard no murmurs. ?Radial pulses intact bilaterally MSK Warmth, swelling noted to wrist, elbow and shoulder. Crepitus to bilateral knees. Office Procedures Joint Injection/Aspiration Joint Injection/Aspiration Details: Procedure was explained to the patient and consent was obtained. ? The area of interest was identified and confirmed with patient. ?This was subsequently cleaned with chlorhexidine x3. ? The area was then anesthetized using ethyl chloride spray. 1cc straw colored fluid removed. ?Minimal to no bleeding. ?Patient tolerated procedure. Primary Site: other (Right Elbow) Prep: site was prepped using aseptic technique, ethochloride spray was applied and injection warnings given Approach Used: other (lateral) Procedure: The patient tolerated the procedure well Coding 37440 - Medium joint Procedure code (CPT) selection complete Results Reviewed Results Reviewed: MRI findings reviewed Assessment & Plan Assessment & Plan (1) Arthritis of right elbow: Code(s): M19.021 - Primary osteoarthritis, right elbow Category: Medical Plan: #Inflammatory arthritis to wrist, shoulder and elbow Arthrocentesis performed to elbow. Removed 1 cc straw-colored fluid. Fluid sent for crystals and cells. Given colchicine to take 1 tablet twice a day for 1 week and then 1 tablet daily until follow-up in 4 weeks. Differentials include CPPD, gout, or inflammatory arthritis such as RA. Low hortensia picion of infection. Did not want to give prednisone given her unknown glucose control. Her last A1c per patient was 8 We will also check x-rays of her wrists to look for chondrocalcinosis in the TF CC Plan I spent 45 minutes reviewing the record and labs, seeing the patient, discussing the treatment plan and documenting in the medical record Orders: Orders Erythrocyte Sedimentation Rate Today M11.20 - Other chondrocalcinosis, unspecified site, M19.021 - Primary osteoarthritis, right elbow Complete Blood Count Auto Diff Today M11.20 - Other chondrocalcinosis, unspecified site, M19.021 - Primary osteoarthritis, right elbow Uric Acid Today M11.20 - Other chondrocalcinosis, unspecified site, M19.021 - Primary osteoarthritis, right elbow Hemoglobin A1c Today M11.20 - Other chondrocalcinosis, unspecified site, M19.021 - Primary osteoarthritis, right elbow Cyclic Citrullinated Peptide Today M11.20 - Other chondrocalcinosis, unspecified site, M19.021 - Primary osteoarthritis, right elbow Rheumatoid Factor Today M11.20 - Other chondrocalcinosis, unspecified site, M19.021 - Primary osteoarthritis, right elbow XR wrist RT 2V Today M11.20 - Other chondrocalcinosis, unspecified site Synov Fld Cult + Crystals Today M11.20 - Other chondrocalcinosis, unspecified site Cell Ct wDiff Synovial Fl Today M11.20 - Other chondrocalcinosis, unspecified site Comprehensive Met. Panel Today M11.20 - Other chondrocalcinosis, unspecified site, M19.021 - Primary osteoarthritis, right elbow C Reactive Protein Today M11.20 - Other chondrocalcinosis, unspecified site, M19.021 - Primary osteoarthritis, right elbow HINA Reflex Titer and Pattern Today M11.20 - Other chondrocalcinosis, unspecified site, M19.021 - Primary osteoarthritis, right elbow AMB Joint Injection/Aspiration Today M11.20 - Other chondrocalcinosis, unspecified site, M19.021 - Primary osteoarthritis, right elbow Medications: New colchicine take 1 tablet twice a day for 1 week then 1 tablet daily 0.6 mg PO BID 90 days 180 tabs 0RF M11.20 - Other chondrocalcinosis, unspecified site Coding Level of Care Code New Pt Level 4 (05699) Diagnoses Arthritis of right elbow M19.021 CPT Codes Coding - 40543 Medium joint: 37763 - Medium joint ([id number])
== END 2024-02-29 15:06 | disposition home or self-care (01) ==
PROVIDERS: PCP Physician Assistant Medical; Visit Provider Student in an Organized Health Care Education/Training Program
DX: M19.021 Primary osteoarthritis, right elbow (principal)
CPT/HCPCS: 20605; 99204

== ENCOUNTER 2024-03-09 16:09 | Outpatient (REF) | payer MEDICARE, SELFPAY ==
--- NOTE | ~2024-03-09 | XR_ITS ---
EXAMINATION: XR CHEST CLINICAL INFORMATION: J98.11 - Atelectasis COMPARISON: 01/10/2023. CT chest high resolution 12/16/2023. TECHNIQUE: 2 views of the chest were obtained. FINDINGS: The cardiac, hilar, and mediastinal contours are normal. There are coronary calcifications. Aortic arch is calcified. Lungs again demonstrate linear scarring in both lower lungs, with a suggestion of interstitial changes in the lower lungs bilaterally, with associated bronchiectasis and mild bronchial wall thickening. This finding appears relatively stable and unchanged. No pleural effusion or pneumothorax. There is no focal osseous or soft tissue abnormality. There are spinal degenerative changes. XR/XR chest 2V IMPRESSION: 1. Stable appearance of bilateral mid and lower lung scarring, interstitial changes with bronchiectasis and bronchial wall thickening. Cannot exclude underlying interstitial lung disease given the appearance. On review of the recent high-resolution chest CT, findings in the lower lungs appear to be related to chronic inflammatory airways disease. Electronically signed by: Juan Rodriguez MD 04/21/2024 12:31 PM ALYSIA ZAPATA
[2024-03-09 16:42] LABS: MANUAL DIFF FLAG NO
[2024-03-09 16:59] LABS: Basophils Percent Auto 0.4 % (0-2); Eosinophils Absolute Auto 0.4 X10*3/uL (0.0-0.4); Eosinophils Percent Auto 5.2 % (0-4); Hematocrit 35.4 % (37.0-47.0); Hemoglobin 11.8 g/dl (12.0-16.0); Imm Gran Abs Auto 0.02 X10*3/uL (0.00-0.03); Imm Gran Pct Auto 0.3 % (0.0-0.4); Lymphocytes Percent Auto 29.4 % (20-40); Mean Corpuscular HGB Conc 33.3 g/dl (31.0-35.0); Mean Corpuscular Hemoglobin 26.6 pg (27.0-33.0); Mean Corpuscular Volume 79.7 fL (80.0-98.0); Mean Platelet Volume 9.4 fL (9.4-12.3); Monocytes Absolute Auto 0.8 X10*3/uL (0.1-1.2); Monocytes Percent Auto 11.1 % (2-11); Neutrophils Absolute Auto 3.6 x10*3/uL (2.0-8.3); Neutrophils Percent Auto 53.6 % (45-73); Platelet Count 240 X10*3/uL (160-400); Red Blood Count 4.44 X10*6/uL (4.20-5.50); Red Cell Distribution Width 13.4 % (11.0-16.0); White Blood Count 6.8 X10*3/uL (4.8-10.8)
[2024-03-09 17:38] LABS: Erythrocyte Sedimentation Rate 85 MM/HR (0-20); Estimated Average Glucose 180 mg/dL; Hemoglobin A1C 255.0541 umol/L; Hemoglobin A1c % 7.9 % (<6.0); Total Hemoglobin (HGBA1C) 4026.8147 umol/L
[2024-03-09 17:39] LABS: Alanine Aminotransferase 16 U/L (0-31); Albumin Level 3.7 g/dL (3.5-5.0); Alkaline Phosphatase 87 U/L (39-117); Anion Gap 17 (12-20); Aspartate Amino Transferase 19 U/L (5-31); Bilirubin Total 0.3 mg/dL (0.0-1.0); Blood Urea Nitrogen 18 mg/dL (9-16); C Reactive Protein 1.39 mg/dL (< or = 0.50); Calcium 10.3 mg/dL (8.4-10.2); Carbon Dioxide 23 mmol/L (22-29); Chloride 104 mmol/L (96-108); Estimated Glomerular Filt Rate 57; Glucose Random 133 mg/dL (60-115); Sodium 140 mmol/L (135-145); Total Protein 7.9 g/dL (6.5-8.0); Uric Acid 7.3 mg/dL (2.4-5.7)
[2024-03-09 17:45] LABS: Rheumatoid Factor 323.6 IU/mL (<15.0)
[2024-03-13 18:22] LABS: Cyclic Citrullinated Peptide >250 UNITS
[2024-03-15 13:29] LABS: Anti Nuclear Antibody Pattern Nuclear, Speckled; Anti Nuclear Antibody Screen POSITIVE (NEGATIVE); Anti Nuclear Antibody Titer 1:40 titer
== END 2024-03-09 16:10 | disposition home or self-care (01) ==
LOC: HO.LAB 16:09
PROVIDERS: PCP Physician Assistant Medical; Referring Provider Nurse Practitioner Family; Visit Provider Student in an Organized Health Care Education/Training Program
DX: M19.021 Primary osteoarthritis, right elbow (principal); M11.20 Other chondrocalcinosis, unspecified site; J98.11 Atelectasis; Z13.1 Encounter for screening for diabetes mellitus
CPT/HCPCS: 36415; 71046; 80053; 83036; 84550; 85025; 85652; 86038; 86039; 86140; 86200; 86431

== ENCOUNTER → 2024-03-09 16:36 | Outpatient (BNV) | payer MEDICARE, SELFPAY | PROVIDERS: PCP Physician Assistant Medical; Referring Provider Nurse Practitioner Family; Visit Provider Radiology Diagnostic Radiology | DX: J98.11 Atelectasis (principal) | CPT/HCPCS: 71046 ==

== ENCOUNTER 2024-03-13 09:01 | Outpatient (AMB) | payer MEDICARE, SELFPAY ==
--- NOTE | 2024-03-13 08:26 | A.OFFVIS_ITS ---
Vital Signs 03/13/24 09:04 Height 5 ft 6.5 in Weight 220 lb 7.396 oz BMI 35.0 BP 180/72 H Blood Pressure Location Rt brachial Position Sitting Pulse 82 Pulse Source Pulse Oximeter Pulse Oximetry (%) 95 Oxygen Delivery Method Room Air Intake Visit Reasons: Asthma Allergies No Known Allergies Allergy (Verified 03/13/24 09:07) HPI HPI Asthma: Details: Suyapa is a pleasant 69 year old female, former smoker with 35+ pack year history, quit 2017 , with underlying HTN and CAD s/p stent. She continues to report dyspnea on exertion using levalbuterol with good effect. Denies wheezing, chest tightness or cough. She had prior abnormal chest CT which revealed 1 cm opacity of RUL, which completely resolved on scan from 05/2023, repeat CT in November 2023 unremarkable. She was also sent for PFT however this has yet to be scheduled. She denies any visits to urgent care or hospitalizations since the l ast visit. 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/ [employer] Review of Systems Const Denies chills, Denies excessive sweating, Denies fever(s), Denies headache(s) and Denies night sweats Eyes Denies dry eyes, Denies irritation and Denies itchy eyes ENT Reports Normal hearing present, Denies headache(s), Denies nasal congestion, Denies nasal discharge, Denies post nasal drip and Denies sore throat Card Denies chest pain, Denies chest pain at rest, Denies chest pain with activity, Denies claudication, Denies leg edema, Reports dyspnea on exertion, Denies orthopnea and Denies paroxysmal nocturnal dyspnea Resp Denies chest congestion, Reports cough (intermittent), Denies excessive phlegm production, Denies pain on inspiration, Denies pain with cough, Reports dyspnea on exertion, Denies stridor and Denies wheezing Neuro Reports Normal hearing present and Denies headache(s) Endo Denies excessive sweating Tc/Lymph Denies lymphadenopathy Aller/Immun Denies itchy eyes, Denies seasonal rhinorrhea and Denies wheezing Physical Exam Vital Signs: Last Vital Signs Pulse 82 03/13/24 09:04 BP 180/72 H 03/13/24 09:04 Pulse Ox 95 03/13/24 09:04 Oxygen Delivery Method Room Air 03/13/24 09:04 BMI result Body Mass Index 35.0 Const General: cooperative, healthy appearing, comfortable, no acute distress, well developed and alert Nutritional Appearance: obese Orientation/consciousness: patient oriented x3 Limitations: no limitations HEENT Head: Yes normal to inspection, Yes normocephalic and Yes atraumatic Ears: hearing grossly normal bilaterally and external ears normal Eyes General: appearance normal, both eyes and all related structures Eyelids: Yes eyelids normal Sclerae: sclerae normal EOM: EOMs intact bilaterally Neck Neck: Yes normal visual inspection and Yes no lymphadenopathy Lymphatic: no lymphadenopathy noted Chest Chest palpation & inspection: normal inspection of the chest Resp Effort & Inspection: normal respiratory effort, able to speak in complete sentences, no audible wheezes, no cough, no stridor, not tachypneic, no tripod positioning and no use of accessory muscles Auscultation: no crackles, no wheezes and diminished lung sounds Cardio Jugular venous distension: no JVD Rate: regular rate Rhythm: regular rhythm Skin Other: warm, dry General skin exam: no rashes or lesions noted Neuro General: patient oriented x3 Cranial nerves: Yes Normal hearing present Cognition (Neuro): normal cognition Gait exam (Neuro): Normal gait present Extrem Other: trace BLE edema General: Yes normal to inspection and Yes capillary refill normal Psych Appearance: grossly normal and well kempt Speech and movement: Normal speech and movement present and Clear speech present Affect: normal affect Attitude: cooperative Thought process: Normal thought process present Thought content: Normal thought content present Insight: Good insight present (Psych) Judgement: Good judgement present (Psych) Assessment & Plan Assessment & Plan (1) COPD (chronic obstructive pulmonary disease): Code(s): J44.9 - Chronic obstructive pulmonary disease, unspecified Category: Medical (2) Nicotine dependence, cigarettes, uncomplicated: Code(s): F17.210 - Nicotine dependence, cigarettes, uncomplicated Category: Medical (3) Atelectasis: Code(s): J98.11 - Atelectasis Category: Medical Plan Will trial ICS given increased use of levalbuterol. Discussed importance of good oral hygiene to prevent thrush. Blood pressure elevated today, advised to review with PCP. All questions were answered and patient is in agreement of plan. Will follow up in 6-8 weeks or sooner if needed. Medications: New fluticasone furoate 100 mcg/actuation (Arnuity Ellipta) 1 inh inhalation DAILY 30 ea 3RF Coding Level of Care Code Est Pt Level 3 (62587) Diagnoses COPD (chronic obstructive pulmonary disease) J44.9 Nicotine dependence, cigarettes, uncomplicated F17.210 Atelectasis J98.11
[2024-03-13 09:04] VITALS: BP 180/72; PULSE 82; O2SAT 95; BMI 35.0
== END 2024-03-13 09:20 | disposition home or self-care (01) ==
PROVIDERS: PCP Physician Assistant Medical; Visit Provider Nurse Practitioner Family
DX: J44.9 Chronic obstructive pulmonary disease, unspecified (principal); F17.210 Nicotine dependence, cigarettes, uncomplicated; J98.11 Atelectasis
CPT/HCPCS: 99213

== ENCOUNTER → 2024-03-13 09:01 | Outpatient (BNVA) | payer MEDICARE, SELFPAY | PROVIDERS: PCP Physician Assistant Medical; Visit Provider Nurse Practitioner Family | DX: J44.9 Chronic obstructive pulmonary disease, unspecified (principal); J98.11 Atelectasis; F17.210 Nicotine dependence, cigarettes, uncomplicated | CPT/HCPCS: 99212 ==

== ENCOUNTER 2024-03-15 11:55 | Outpatient (AMB) | payer MEDICARE, SELFPAY ==
[2024-03-15 11:58] VITALS: BP 138/78; PULSE 71; O2SAT 96; BMI 35.1
--- NOTE | 2024-03-15 11:58 | MHC.OFFVIS ---
Vital Signs 03/15/24 11:58 Height 5 ft 6.5 in Weight 220 lb 14.451 oz BMI 35.1 BP 138/78 Blood Pressure Location Lt brachial Position Sitting Pulse 71 Pulse Source Pulse Oximeter Pulse Oximetry (%) 96 Oxygen Delivery Method Room Air Intake Visit Reasons: Lab Res/CM Intake Note: Patient is here for lab review. Allergies No Known Allergies Allergy (Verified 03/15/24 11:59) Medication List - Last Reconciled 03/15/24 by Argenis Brenner MD celecoxib (Celebrex) 200 mg PO BID 30 days empagliflozin (Jardiance) 10 mg PO DAILY fluticasone furoate 100 mcg/actuation (Arnuity Ellipta) 1 inh inhalation DAILY hydralazine 25 mg PO BID hydrochlorothiazide 25 mg PO DAILY insulin glargine (Lantus Solostar U-100 Insulin) units subcut levalbuterol tartrate 45 mcg/actuation 1 puff inhalation Q4-6H PRN lidocaine-prilocaine 2.5-2.5 % 1 appl topical ONCE metformin 1,000 mg PO BID metoprolol tartrate 50 mg PO BID rosuvastatin 40 mg PO DAILY tramadol 50 mg PO Q8H PRN HPI Comments Details: Patient is a 68-year-old female former smoker with 35+ pack years, hypertension complicated by coronary artery disease status post stent, diabetes on insulin complicated by diabetic neuropathy, and COPD who is here to follow up her inflammatory arthritis Interval History: Patient last seen 02/29/2024 with me. At that time she had received right elbow arthrocentesis for elbow swelling. Fluid sent for evaluation which revealed an inflammatory aspirate without crystals or evidence of infection. She was given colchicine 0.6 mg twice a day and sent for blood work. Blood work revealed high titer RF and CCP. Patient was called back for follow-up. Today patient continues to have pain and swelling to her right wrist and elbow although this is improved. Rheumatologic History: Patient was 1st evaluated in this practice 02/29/2024 with right elbow arthritis. At that time there was swelling, warmth and tenderness noted to the right elbow as well as the right wrist and right shoulder. There were no other joints involved. Arthrocentesis was done which showed inflammatory fluid without crystals and negative cultures. 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 Patient ultimately diagnosed with seropositive rheumatoid arthritis. Current Rheumatology Medication(s): She has been seeing orthopedics for strain of her right elbow since September of this year. An x-ray and an MRI of the right elbow without contrast was ordered. XR Right Elbow showed moderate degenerative changes MRI of the right elbow showed diffuse synovial thickening of the elbow joint especially in the posterior olecranon fossa region as well as in the region surrounding the neck of the radius and IL ligament. There was also a small to moderate joint effusion present. This was of uncertain etiology and could represent acute synovitis which could be traumatic or infection related. In the differential was also potentially inflammatory arthritis. Given this she was referred to Rheumatology for further management. Patient notes that she has been having pain in her right shoulder, elbow and wrist for the past year. She notes that it started with the wrist. Denies swelling but just noted that if she would use it she would notice the pain. Denies trauma. Right handed female. 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/ [employer] Review of Systems Const Details: Review of Systems Constitutional: Denies fever, chills, weight loss ENT: Denies vision changes, eye pain or eye redness, dental caries, dry mouth GI: Denies nausea, vomiting, diarrhea, abdominal pain, change in BM Pulm: Denies SOB, SARAVIA, hemoptysis, wheezing Cards: Denies chest pain, palpitations Skin: Denies Raynaud's, rash, nail changes, photosensitivity, CLINIC ASSISTANT: Denies headaches, weakness, paresthesias, recurrent falls MSK: as per HPI All other systems reviewed and are unremarkable except noted above Physical Exam Vital Signs: Last Vital Signs Pulse 71 03/15/24 11:58 BP 138/78 03/15/24 11:58 Pulse Ox 96 10/30/24 11:58 Oxygen Delivery Method Room Air 03/15/24 11:58 BMI result Body Mass Index 35.1 Const Other: Physical Examination Patient well appearing and in no apparent painful distress Constitutional Mucous membranes pink and moist patient alert and cooperative HEENT Conjunctiva and sclera clear. ?Pupils equal round and reactive to light. ?No lymphadenopathy. ?Normal dentition. Respiratory System Normal respiratory effort and able to speak in complete sentences. ?Clear to auscultation bilaterally. ?No crackles, rales, rhonchi, wheezes heard. Cardiac System Regular rate and rhythm. ?S1 and S2 heard no murmurs. ?Radial pulses intact bilaterally MSK Warmth, swelling noted to wrist and elbow. improved since last visit Crepitus to bilateral knees. Results Reviewed Results Reviewed: Laboratory Tests 03/09/24 03/09/24 16:38 16:43 WBC 6.8 RBC 4.44 Hgb 11.8 L Hct 35.4 L ESR 85 H Sodium 140 Potassium 4.0 Chloride 104 Carbon Dioxide 23 Anion Gap 17 BUN 18 H Creatinine 0.97 AST 19 ALT 16 C-Reactive Protein 1.39 H Rheumatoid Factor 323.6 H Cycl Citrul Peptide IgG >250 H Laboratory Tests 02/29/24 15:20 Synovial Source [place] [address] Syn[place] Sq 2980 Synovial Neutrophils 89 Synovial Lymphocytes 7 Synovial Monocytes 4 Assessment & Plan Assessment & Plan (1) Rheumatoid arthritis: Comment: diagnosed 02/2024. High titre RF and CCP Code(s): M06.9 - Rheumatoid arthritis, unspecified Category: Medical Qualifiers: Rheumatoid arthritis location: multiple sites Rheumatoid factor presence: with rheumatoid factor Qualified Code(s): M05.79 - Rheumatoid arthritis with rheumatoid factor of multiple sites without organ or systems involvement Plan: #Rheumatoid Arthritis Patient with a new diagnosis of rheumatoid arthritis based on inflammatory arthritis involving the right wrist and elbow as well as high titer RF and CCP. We will stop colchicine. We will start methotrexate 50 mg every week. Also 1 mg folic acid daily. We will see again in 3 months and review efficacy of methotrexate at that time. (2) Rheumatoid arthritis flare: Code(s): M06.9 - Rheumatoid arthritis, unspecified Category: Medical Plan: #RA Flare Patient with an RA flare on a background of new diagnosis. Given her uncontrolled diabetes opting not to start her on prednisone as this could tip her over into DKA/HHS. Based on the guidelines for rheumatoid arthritis by the ACR it is appropriate to start with methotrexate monotherapy for her rheumatoid arthritis in even in the setting of a flare. 1. Arthritis Care & Research Vol. 73, No. 7, November 2020, pp [phone] DOI 10.1002/acr.05231 (3) On methotrexate therapy: Comment: started 02/2024 Code(s): Z79.631 - penitentiary (current) use of antimetabolite agent Category: Medical Plan: #Long-term Current Use of Methotrexate Discussed with patient the benefits and risks of methotrexate for managing their rheumatic condition Benefits include reduced pain, reduced mortality, maintenance of remission and reduction of flares Risks include oral ulcers, photosensitivity, hepatotoxicity, hematologic toxicity, pneumonitis, flu-like symptoms (especially day after administration), nodulosis, lymphomas ? Limit alcohol and avoid Bactrim ? Monitoring: ?CBC, BMP, LFTs, hepatitis serologies as needed Plan I spent 30 minutes reviewing the record and labs, seeing the patient, discussing the treatment plan and documenting in the medical record ? For next visit: Review efficacy of methotrexate Orders: Orders Complete Blood Count Auto Diff 3 Months M06.9 - Rheumatoid arthritis, unspecified Erythrocyte Sedimentation Rate 3 Months M06.9 - Rheumatoid arthritis, unspecified XR hand wrist LT 3 Months M06.9 - Rheumatoid arthritis, unspecified Hepatitis A,B,C Profile 3 Months M06.9 - Rheumatoid arthritis, unspecified Comprehensive Met. Panel 3 Months M06.9 - Rheumatoid arthritis, unspecified C Reactive Protein 3 Months M06.9 - Rheumatoid arthritis, unspecified XR hand wrist RT 3 Months M06.9 - Rheumatoid arthritis, unspecified Medications: New methotrexate sodium 15 mg (6 x 2.5 mg) PO QWEEK 78 tabs 1RF 90 days M06.9 - Rheumatoid arthritis, unspecified folic acid 1 mg PO DAILY 90 tabs 1RF 90 days M06.9 - Rheumatoid arthritis, unspecified Coding Level of Care Code Est Pt Level 5 (24419) Complex EM visit Add On G2211 Diagnoses Rheumatoid arthritis involving multiple sites with positive rheumatoid factor M05.79 Rheumatoid arthritis location: multiple sites Rheumatoid factor presence: with rheumatoid factor Rheumatoid arthritis flare M06.9 On methotrexate therapy Z79.631
== END 2024-03-15 12:17 | disposition home or self-care (01) ==
PROVIDERS: PCP Physician Assistant Medical; Visit Provider Student in an Organized Health Care Education/Training Program
DX: M05.79 Rheumatoid arthritis with rheumatoid factor of multiple sites without organ or systems involvement (principal); M06.9 Rheumatoid arthritis, unspecified; Z79.631 Long term (current) use of antimetabolite agent
CPT/HCPCS: 99214; G2211

== ENCOUNTER → 2024-03-15 11:55 | Outpatient (BNVA) | payer MEDICARE, SELFPAY | PROVIDERS: PCP Physician Assistant Medical; Visit Provider Student in an Organized Health Care Education/Training Program | DX: M19.021 Primary osteoarthritis, right elbow (principal); M05.79 Rheumatoid arthritis with rheumatoid factor of multiple sites without organ or systems involvement; Z79.631 Long term (current) use of antimetabolite agent | CPT/HCPCS: 99212 ==

== ENCOUNTER 2024-04-24 13:43 | Outpatient (AMB) | payer MEDICARE, SELFPAY ==
[2024-04-24 13:45] VITALS: BP 162/70; PULSE 96; O2SAT 94
--- NOTE | 2024-04-24 13:45 | A.OFFVIS_ITS ---
Vital Signs 04/24/24 13:45 Height 5 ft 6.5 in BMI Reason not done Patient refused/unable BP 162/70 H Blood Pressure Location Rt brachial Position Sitting Pulse 96 Pulse Source Pulse Oximeter Pulse Oximetry (%) 94 Oxygen Delivery Method Room Air Intake Visit Reasons: Asthma Allergies No Known Allergies Allergy (Verified 04/24/24 13:48) HPI HPI Asthma: Details: Suyapa is a pleasant 69 year old female, former smoker with 35+ pack year history, quit 2018 , with underlying HTN and CAD s/p stent. She continues to report dyspnea on exertion using levalbuterol with moderate effect. An ICS was sent to pharmacy however she never picked up due to costs. Denies wheezing, chest tightness or cough. She had prior abnormal chest CT which revealed 1 cm opacity of RUL, which completely resolved on scan from 05/2023, repeat CT in November 2023 unremarkable. She denies any visits to urgent care or hospitalizations since the last visit. 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/ [employer] Review of Systems Const Denies chills, Denies excessive sweating, Denies fever(s), Denies headache(s) and Denies night sweats Eyes Denies dry eyes, Denies irritation and Denies itchy eyes ENT Reports Normal hearing present, Denies headache(s), Denies nasal congestion, Denies nasal discharge, Denies post nasal drip and Denies sore throat Card Denies chest pain, Denies chest pain at rest, Denies chest pain with activity, Denies claudication, Denies leg edema, Reports dyspnea on exertion, Denies orthopnea and Denies paroxysmal nocturnal dyspnea Resp Denies chest congestion, Reports cough (intermittent), Denies excessive phlegm production, Denies pain on inspiration, Denies pain with cough, Reports dyspnea on exertion, Denies stridor and Denies wheezing Neuro Reports Normal hearing present and Denies headache(s) Endo Denies excessive sweating Tc/Lymph Denies lymphadenopathy Aller/Immun Denies itchy eyes, Denies seasonal rhinorrhea and Denies wheezing Physical Exam Vital Signs: Last Vital Signs Pulse 96 04/24/24 13:45 BP 162/70 H 04/24/24 13:45 Pulse Ox 94 04/24/24 13:45 Oxygen Delivery Method Room Air 04/24/24 13:45 Const General: cooperative, healthy appearing, comfortable, no acute distress, well d eveloped and alert Nutritional Appearance: obese Orientation/consciousness: patient oriented x3 Limitations: no limitations HEENT Head: Yes normal to inspection, Yes normocephalic and Yes atraumatic Ears: hearing grossly normal bilaterally and external ears normal Eyes General: appearance normal, both eyes and all related structures Eyelids: Yes eyelids normal Sclerae: sclerae normal EOM: EOMs intact bilaterally Neck Neck: Yes normal visual inspection and Yes no lymphadenopathy Lymphatic: no lymphadenopathy noted Chest Chest palpation & inspection: normal inspection of the chest Resp Effort & Inspection: normal respiratory effort, able to speak in complete sentences, no audible wheezes, no cough, no stridor, not tachypneic, no tripod positioning and no use of accessory muscles Auscultation: no crackles, no wheezes and diminished lung sounds Cardio Jugular venous distension: no JVD Rate: regular rate Rhythm: regular rhythm Skin Other: warm, dry General skin exam: no rashes or lesions noted Neuro General: patient oriented x3 Cranial nerves: Yes Normal hearing present Cognition (Neuro): normal cognition Gait exam (Neuro): Normal gait present Extrem Other: trace BLE edema General: Yes normal to inspection and Yes capillary refill normal Psych Appearance: grossly normal and well kempt Speech and movement: Normal speech and movement present and Clear speech present Affect: normal affect Attitude: cooperative Thought process: Normal thought process present Thought content: Normal thought content present Insight: Good insight present (Psych) Judgement: Good judgement present (Psych) Assessment & Plan Assessment & Plan (1) COPD (chronic obstructive pulmonary disease): Code(s): J44.9 - Chronic obstructive pulmonary disease, unspecified Category: Medical (2) Nicotine dependence, cigarettes, uncomplicated: Code(s): F17.210 - Nicotine dependence, cigarettes, uncomplicated Category: Medical (3) Atelectasis: Code(s): J98.11 - Atelectasis Category: Medical Plan Will send in a different ICS to see if better covered by insurance given increased use of levalbuterol. Discussed importance of good oral hygiene to prevent thrush. All questions were answered and patient is in agreement of plan. Will follow up in 6-8 weeks or sooner if needed. Medications: New ciclesonide 80 mcg/actuation ([place]) 1 puff inhalation BID 6.1 grams 3RF Refilled levalbuterol tartrate 45 mcg/actuation 1 puff inhalation Q4-6H PRN 15 grams 3RF shortness of breath Coding Level of Care Code Est Pt Level 4 (44079) Diagnoses COPD (chronic obstructive pulmonary disease) J44.9 Nicotine dependence, cigarettes, uncomplicated F17.210 Atelectasis J98.11
== END 2024-04-24 14:12 | disposition home or self-care (01) ==
PROVIDERS: PCP Physician Assistant Medical; Visit Provider Nurse Practitioner Family
DX: J44.9 Chronic obstructive pulmonary disease, unspecified (principal); F17.210 Nicotine dependence, cigarettes, uncomplicated; J98.11 Atelectasis
CPT/HCPCS: 99214

== ENCOUNTER → 2024-04-24 13:43 | Outpatient (BNVA) | payer MEDICARE, SELFPAY | PROVIDERS: PCP Physician Assistant Medical; Visit Provider Nurse Practitioner Family | DX: J44.9 Chronic obstructive pulmonary disease, unspecified (principal); J98.11 Atelectasis; F17.210 Nicotine dependence, cigarettes, uncomplicated | CPT/HCPCS: 99212 ==

== ENCOUNTER 2024-06-12 08:20 | Outpatient (REF) | payer MEDICARE, SELFPAY ==
--- NOTE | ~2024-06-12 | XR_ITS ---
CLINICAL HISTORY: M06.9 - Rheumatoid arthritis, unspecified Right hand three views Comparison: None Findings: No acute fracture or dislocation identified. No focal bony erosion identified. No radiopaque foreign body noted. Impression: No acute bony abnormality Right wrist four views Comparison: None Findings: No acute fracture or dislocation identified. No acute focal bony abnormality. No radiopaque foreign body noted. Impression: No acute bony abnormality This document has been electronically signed by: Darío Harris MD on 06/12/2024 20:51:58
--- NOTE | ~2024-06-12 | XR_ITS ---
CLINICAL HISTORY: M06.9 - Rheumatoid arthritis, unspecified Left hand three views Comparison: None Findings: No acute fracture or dislocation identified. Small erosions noted around multiple joints. These are most prominent in the 2nd and 3rd IP joints. Findings would be consistent with rheumatoid arthritis. Impression: No acute bony abnormality Left wrist four views Comparison: None Findings: No acute fracture or dislocation identified. No acute focal bony abnormality. No radiopaque foreign body noted. Impression: No acute bony abnormality This document has been electronically signed by: Darío Harris MD on 06/12/2024 20:51:15
== END 2024-06-12 08:21 | disposition home or self-care (01) ==
LOC: HO.XRAY 08:20
PROVIDERS: Absent Provider Student in an Organized Health Care Education/Training Program; PCP Physician Assistant Medical; Visit Provider Nurse Practitioner Family
DX: J98.11 Atelectasis (principal); Z13.89 Encounter for screening for other disorder
CPT/HCPCS: 73110; 73130; 99212

== ENCOUNTER 2024-06-12 08:20 | Outpatient (AMB) | payer MEDICARE, SELFPAY ==
--- NOTE | 2024-06-12 08:27 | A.OFFVIS_ITS ---
Vital Signs 06/12/24 08:30 Height 5 ft 6.5 in BP 142/68 H Blood Pressure Location Rt brachial Position Sitting Pulse 92 Pulse Source Pulse Oximeter Pulse Oximetry (%) 93 Oxygen Delivery Method Room Air Intake Visit Reasons: COPD Intake Note: Patient refuses weight check. Medical Assistant Ob Gyn Required: No Partition Notcher: Partition Notcher offered & declined Accompanied by: Self / Same As Patient Allergies No Known Allergies Allergy (Verified 06/12/24 08:34) Medication List - Last Reconciled 06/12/24 by Emilia Fisher LPN celecoxib (Celebrex) 200 mg PO BID 30 days ciclesonide 80 mcg/actuation (Alvesco) 1 puff inhalation BID empagliflozin (Jardiance) 10 mg PO DAILY folic acid 1 mg PO DAILY 90 days hydralazine 25 mg PO BID hydrochlorothiazide 25 mg PO DAILY insulin glargine (Lantus Solostar U-100 Insulin) units subcut levalbuterol tartrate 45 mcg/actuation 1 puff inhalation Q4-6H PRN lidocaine-prilocaine 2.5-2.5 % 1 appl topical ONCE metformin 1,000 mg PO BID methotrexate sodium 15 mg (6 x 2.5 mg) PO QWEEK 90 days metoprolol tartrate 50 mg PO BID rosuvastatin 40 mg PO DAILY tramadol 50 mg PO Q8H PRN HPI HPI COPD: Details: Suyapa is a pleasant 69 year old female, former smoker with 35+ pack year history, quit 2018 , with underlying COPD, RA on methotrexate, HTN and CAD s/p angioplasty under the care of [facility]. At the last visit, she reported increased use of levalbuterol therefore started on ICS. Unfortunately, she reports insurance did not cover and was waiting until this appointment to discuss as her insurance recently changed at the beginning of the year. She continues to report subopitmal effect with Levalbuterol, continue to report dyspnea on exertion. Denies wheezing, chest tightness or cough. She denies any visits to urgent care or hospitalizations since the last visit. 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/ [employer] Review of Systems Const Denies chills, Denies excessive sweating, Denies fever(s), Denies headache(s) and Denies night sweats Eyes Denies dry eyes, Denies irritation and Denies itchy eyes ENT Reports Normal hearing present and Denies headache(s) Card Denies chest pain, Denies chest pain at rest, Denies chest pain with activity, Denies claudication, Denies leg edema, Reports dyspnea on exertion, Denies orthopnea and Denies paroxysmal nocturnal dyspnea Resp Denies chest congestion, Reports cough (intermittent), Denies excessive phlegm production, Denies pain on inspiration, Denies pain with cough, Reports dyspnea on exertion, Denies stridor and Denies wheezing Neuro Reports Normal hearing present and Denies headache(s) Endo Denies excessive sweating Tc/Lymph Denies lymphadenopathy Aller/Immun Denies itchy eyes, Denies seasonal rhinorrhea and Denies wheezing Physical Exam Vital Signs: Last Vital Signs Pulse 92 06/12/24 08:30 BP 142/68 H 06/12/24 08:30 Pulse Ox 93 06/12/24 08:30 Oxygen Delivery Method Room Air 06/12/24 08:30 Const General: cooperative, healthy appearing, comfortable, no acute distress, well developed and alert Nutritional Appearance: obese Orientation/consciousness: patient oriented x3 Limitations: no limitations HEENT Head: Yes normal to inspection, Yes normocephalic and Yes atraumatic Ears: hearing grossly normal bilaterally and external ears normal Eyes General: appearance normal, both eyes and all related structures Eyelids: Yes eyelids normal Sclerae: sclerae normal EOM: EOMs intact bilaterally Neck Neck: Yes normal visual inspection and Yes no lymphadenopathy Lymphatic: no lymphadenopathy noted Chest Chest palpation & inspection: normal inspection of the chest Resp Effort & Inspection: normal respiratory effort, able to speak in complete sentences, no audible wheezes, no cough, no stridor, not tachypneic, no tripod positioning and no use of accessory muscles Auscultation: clear to auscultation bilaterally Cardio Jugular venous distension: no JVD Rate: regular rate Rhythm: regular rhythm Skin Other: warm, dry General skin exam: no rashes or lesions noted Neuro General: patient oriented x3 Cranial nerves: Yes Normal hearing present Cognition (Neuro): normal cognition Gait exam (Neuro): Normal gait present Extrem General: Yes normal to inspection, Yes capillary refill normal, Yes no clubbing, cyanosis or edema and Yes no pedal edema Psych Appearance: grossly normal and well kempt Speech and movement: Normal speech and movement present and Clear speech present Affect: normal affect Attitude: cooperative Thought process: Normal thought process present Thought content: Normal thought content present Insight: Good insight present (Psych) Judgement: Good judgement present (Psych) Assessment & Plan Assessment & Plan (1) COPD (chronic obstructive pulmonary disease): Code(s): J44.9 - Chronic obstructive pulmonary disease, unspecified Category: Medical (2) Personal history of tobacco use: Code(s): Z87.891 - Personal history of nicotine dependence Category: Social Hx (3) Rheumatoid arthritis: Comment: diagnosed 02/2024. High titre RF and CCP Code(s): M06.9 - Rheumatoid arthritis, unspecified Category: Medical Qualifiers: Rheumatoid arthritis location: multiple sites Rheumatoid factor presence: with rheumatoid factor Qualified Code(s): M05.79 - Rheumatoid arthritis with rheumatoid factor of multiple sites without organ or systems involvement Plan Will send in Alvesco, given suboptimal effect with levalbuterol. She is aware to call the office if unable to obtain. Discussed importance of good oral hygiene to prevent thrush. All questions were answered and patient is in agreement of plan. Will follow up in 6-8 weeks or sooner if needed. Medications: Refilled ciclesonide 80 mcg/actuation (Alvesco) 1 puff inhalation BID 6.1 grams 3RF Coding Level of Care Code Est Pt Level 3 (82077) Diagnoses COPD (chronic obstructive pulmonary disease) J44.9 Personal history of tobacco use Z87.891 Rheumatoid arthritis involving multiple sites with positive rheumatoid factor M05.79 Rheumatoid arthritis location: multiple sites Rheumatoid factor presence: with rheumatoid factor
[2024-06-12 08:30] VITALS: BP 142/68; PULSE 92; O2SAT 93
--- OUTSIDE RECORDS SUMMARY | 2024-06-12 12:39 | XMS_ITS | Clinical Summary ---
Author Organization [facility] ity Address [address] [place] [address] Care Team Providers Care Distillery Manager Name Role Phone Talita Aparicio MD Primary Care Provider [phone] Surgical History Surgery Date Site/Laterality Comments OTHER SURGICAL HISTORY PROCEDURE: [place] UNLISTED PX FEMALE GENITAL SYSTEM NONOBSTETRICAL; COMMENT: urethral cyst TONSILLECTOMY PROCEDURE: HISTORICAL TONSILLECTOMY APPENDECTOMY PROCEDURE: HISTORICAL APPENDECTOMY BREAST BIOPSY Right PROCEDURE: BX BREAST; PERC NEEDLE CORE W/IMAG GUID Medical History Medical History Date Comments Other dyspnea and respirator y abnormality 02/04/2005 DX:Other dyspnea and respira tory abnormality Morbid obesity (CMS/HCC) 02/04/2005 DX:Morb id obesity (HCC) Benign neoplasm of pituitary gland and craniopharyngeal duct (pouch) (CMS/HCC) 02/04/2005 DX:Benign neop lasm of pituitary gland and craniopharyngeal duct (pouch) (HCC) Thyroid nodule 10/29/2014 DX:Thyroid nodul e Microalbuminuria 10/29/2014 DX:Microalbumin uria Type II diabetes mellitus wi th renal manifestations, uncontrolled 10/04/2014 DX:Type II diabetes melli tus with renal manifestations, uncontrolled History of colon polyps 10/29/2014 DX:Histo ry of colon polyps Hypercholesterolemia 10/29/2014 DX:Hypercho lesterolemia Elevated BP 11/06/2014 DX:Elevated BP Family History Medical History Relation Name Comments Hypertension Brother 1 Colon cancer Father Diabetes Mother htn Hypertension Sister 1 Breast cancer Sister 2 30s; Ovarian cancer Neg Hx Relation Name Status Comments Brother 1 Brother 2 Father Mother Sister 1 Sister 2 Sister 3 Social History Tobacco Use Types Packs/Day Years Used Date Smoking Tobacco: Former Cigarettes Alcohol Use Standard Drinks/Week Comments No 0 (1 standard drink = 0.6 oz pur e alcohol) Sex and Gender Information Value Date Recorded Sex Assigned at Not on file Gender Identity Not on file Sexual Orientation Not on file Obstetrics History Last Filed Vital Signs Vital Sign Reading Time Taken Comments Blood Pressure - - Pulse - - Temperature - - Respiratory Rate - - Oxygen Saturation - - Inhaled Oxygen Concentration - - Weight 98.9 kg (218 lb) 08/04/2022 11:27 AM EDT Height 168.9 cm (5' 6.5 ) 08/04/2022 11:27 AM ED T Body Mass Index 34.66 08/04/2022 11:27 AM EDT Plan of Treatment Health Maintenance Due Date Last Done Comments Breast Cancer Screening 1955 Diabetes: Annual GFR (Glomerular Filtration Rate) 1956 Diabetes: Annual Foot Exam 1966 Diabetes: Annual Retina Eye Exam 1966 Zoster Vaccines (1 of 2) 2006 DTaP,Tdap,and Td Vaccines (2 - Td or Tdap) 10/11/2008 10/11/1998 RSV Immunization Patients 60 + Years Old (1 - Risk 60-74 years 1-dose series) 2016 Pneumococcal Vaccine: 65+ Years (1 of 1 - PCV) 2021 Cholesterol Screening (Lipid Panel) 04/14/2022 Colorectal Cancer Screening: Colonoscopy 04/14/2022 Depression Screening 04/14/2022 Falls Risk Assessment 04/14/2022 Hepatitis C Screening 04/14/2022 Osteoporosis Screening (Bone Density Screening) 04/14/2022 Social Influencers of Health Screening 04/14/2022 Diabetes: Annual Urine Albumin-Creatinine Ratio (uACR) 04/23/2022 Diabetes: Blood Sugar Contro l Test (HGBA1C) 04/23/2022 COVID-19 Vaccine ( - 2023-2 5 season) 2024 Influenza Vaccine (#1) 2024 Hepatitis B Vaccines Completed 06/12/1994, 12/25/1993, 11/21/1993 HIB Vaccines Aged Out No longer eligi ble based on patient's age to complete this topic HPV Vaccines Aged Out No longer eligi ble based on patient's age to complete this topic Hepatitis A Vaccines Aged Out No long er eligible based on patient's age to complete this topic IPV Vaccines Aged Out No longer eligi ble based on patient's age to complete this topic MMR Vaccines Aged Out No longer eligi ble based on patient's age to complete this topic Meningococcal ACWY Vaccine Aged Out N o longer eligible based on patient's age to complete this topic RSV Immunization Patients Under 20 months Aged Out No longer eligible b ased on patient's age to complete this topic Varicella Vaccines Aged Out No longer eligible based on patient's age to complete this topic Care Teams Distillery Manager Relationship Specialty Start Date End Date Talita Aparicio MD [facility] [place] [address] PCP - General Internal Medicine 09/21/14
== END 2024-06-12 08:48 | disposition home or self-care (01) ==
PROVIDERS: PCP Physician Assistant Medical; Visit Provider Nurse Practitioner Family
DX: J44.9 Chronic obstructive pulmonary disease, unspecified (principal); Z87.891 Personal history of nicotine dependence; M05.79 Rheumatoid arthritis with rheumatoid factor of multiple sites without organ or systems involvement
CPT/HCPCS: 99213

== ENCOUNTER 2024-06-12 09:04 | Outpatient (REF) | payer MEDICARE, SELFPAY ==
[2024-06-12 10:16] LABS: MANUAL DIFF FLAG NO
[2024-06-12 10:18] LABS: Basophils Absolute Auto 0.1 X10*3/uL (0.0-0.2); Basophils Percent Auto 0.7 % (0-2); Eosinophils Absolute Auto 0.4 X10*3/uL (0.0-0.4); Eosinophils Percent Auto 5.9 % (0-4); Hematocrit 35.5 % (37.0-47.0); Hemoglobin 11.4 g/dl (12.0-16.0); Imm Gran Abs Auto 0.02 X10*3/uL (0.00-0.03); Imm Gran Pct Auto 0.3 % (0.0-0.4); Lymphocytes Absolute Auto 2.8 X10*3/uL (1.2-4.9); Lymphocytes Percent Auto 40.6 % (20-40); Mean Corpuscular HGB Conc 32.1 g/dl (31.0-35.0); Mean Corpuscular Hemoglobin 27.4 pg (27.0-33.0); Mean Corpuscular Volume 85.3 fL (80.0-98.0); Mean Platelet Volume 9.3 fL (9.4-12.3); Monocytes Absolute Auto 0.7 X10*3/uL (0.1-1.2); Monocytes Percent Auto 9.7 % (2-11); Neutrophils Absolute Auto 2.9 x10*3/uL (2.0-8.3); Neutrophils Percent Auto 42.8 % (45-73); Platelet Count 279 X10*3/uL (160-400); Red Blood Count 4.16 X10*6/uL (4.20-5.50); White Blood Count 6.8 X10*3/uL (4.8-10.8)
[2024-06-12 10:59] LABS: Erythrocyte Sedimentation Rate 58 MM/HR (0-20)
[2024-06-12 11:05] LABS: Alanine Aminotransferase 25 U/L (0-31); Albumin Level 3.9 g/dL (3.5-5.0); Alkaline Phosphatase 76 U/L (39-117); Anion Gap 12 (12-20); Aspartate Amino Transferase 24 U/L (5-31); Bilirubin Total 0.2 mg/dL (0.0-1.0); Blood Urea Nitrogen 19 mg/dL (9-16); C Reactive Protein 0.35 mg/dL (< or = 0.50); Calcium 9.5 mg/dL (8.4-10.2); Carbon Dioxide 24 mmol/L (22-29); Chloride 110 mmol/L (96-108); Estimated Glomerular Filt Rate 52; Glucose Random 108 mg/dL (60-115); Sodium 142 mmol/L (135-145); Total Protein 8.1 g/dL (6.5-8.0)
[2024-06-12 11:09] LABS: HBS Num1 1.83 mIU/mL (0-7.99); HBc Num1 0.12 S/CO (0.00-0.79); HBsAGNum1 0.33 S/CO (0.00-0.99); Hepatitis A Antibody IgM 0.32 Index (0-0.79); Hepatitis B Core Antibody Nonreactive (Nonreactive); ~HepC Num1 0.08 S/CO (0.00-0.79); ~Hepatitis A Antibody IgM Nonreactive (Nonreactive); ~Hepatitis B Surface Antibody NONREACTIVE (Nonreactive); ~Hepatitis C Antibody Nonreactive (Nonreactive)
[2024-06-12 11:10] LABS: Hepatitis B Surface Antigen Negative (Negative)
--- OUTSIDE RECORDS SUMMARY | 2024-06-12 13:23 | XMS_ITS | Clinical Summary ---
Author Organization [facility]y Address [address] [place] [address] Care Team Providers Care License And Permit Specialist Name Role Phone Talita Aparicio MD Primary Care Provider [phone] Surgical History Surgery Date Site/Laterality Comments OTHER SURGICAL HISTORY PROCEDURE: [place] UNLISTED PX FEMALE GENITAL SYSTEM NONOBSTETRICAL; COMMENT: [...] age to complete this topic Care Teams License And Permit Specialist Relationship Specialty Start Date End Date Talita Aparicio MD [facility] [place] [address] PCP - General Internal Medicine 09/21/14
== END 2024-06-12 09:05 | disposition home or self-care (01) ==
LOC: HO.10HDL 09:04
PROVIDERS: Visit Provider Student in an Organized Health Care Education/Training Program
DX: M05.79 Rheumatoid arthritis with rheumatoid factor of multiple sites without organ or systems involvement (principal); J44.9 Chronic obstructive pulmonary disease, unspecified; Z87.891 Personal history of nicotine dependence
CPT/HCPCS: 36415; 73110; 73130; 80053; 85025; 85652; 86140; 86704; 86706; 86709; 86803; 87340; 99212

== ENCOUNTER → 2024-06-12 09:20 | Outpatient (BNV) | payer MEDICARE, SELFPAY | PROVIDERS: Absent Provider Student in an Organized Health Care Education/Training Program; PCP Physician Assistant Medical; Visit Provider Radiology Diagnostic Radiology | DX: M06.041 Rheumatoid arthritis without rheumatoid factor, right hand (principal); M06.042 Rheumatoid arthritis without rheumatoid factor, left hand | CPT/HCPCS: 73110; 73130 ==

== ENCOUNTER 2024-06-15 11:06 | Outpatient (AMB) | payer OTHER, SELFPAY ==
--- NOTE | 2024-06-15 11:14 | MHC.OFFVIS ---
Vital Signs 06/15/24 11:17 Height 5 ft 6.5 in BMI Reason not done Patient refused/unable BP 142/80 H Blood Pressure Location Lt brachial Position Sitting Pulse 81 Pulse Source Pulse Oximeter Pulse Oximetry (%) 90 L Oxygen Delivery Method Room Air Intake Visit Reasons: Follow up Intake Note: Patient presents for follow up. Allergies No Known Allergies Allergy (Verified 06/15/24 11:16) Medication List - Last Reconciled 06/15/24 by Argenis Brenner MD beclomethasone dipropionate 40 mcg/actuation (Qvar RediHaler) 2 inhalations inhalation BID celecoxib (Celebrex) 200 mg PO BID 30 days ciclesonide 80 mcg/actuation (Alvesco) 1 puff inhalation BID empagliflozin (Jardiance) 10 mg PO DAILY fluticasone propion-salmeterol 115-21 mcg/actuation (Advair HFA) 2 puffs inhalation Q12H folic acid 1 mg PO DAILY 90 days hydralazine 25 mg PO BID hydrochlorothiazide 25 mg PO DAILY insulin glargine (Lantus Solostar U-100 Insulin) units subcut levalbuterol tartrate 45 mcg/actuation 1 puff inhalation Q4-6H PRN lidocaine-prilocaine 2.5-2.5 % 1 appl topical ONCE metformin 1,000 mg PO BID methotrexate sodium 15 mg (6 x 2.5 mg) PO QWEEK 90 days metoprolol tartrate 50 mg PO BID rosuvastatin 40 mg PO DAILY tramadol 50 mg PO Q8H PRN HPI Comments Details: Patient is a 68-year-old female former smoker with 35+ pack years, hypertension complicated by coronary artery disease status post stent, diabetes on insulin complicated by diabetic neuropathy, and COPD who is here to follow up of seropositive erosive rheumatoid arthritis Interval History: Patient last seen 03/15/24 with me. At that time she was returning for follow up visit and being diagnosed with rheumatoid arthritis based on high positive CCP and RF. X-rays that were done show multiple erosions in the hands and wrists further more consistent with rheumatoid arthritis. She was started on methotrexate 6 pills weekly Today, Patient reports improvement in her pain in her hands and her wrists. Still intermittently gets pain and stiffness in the elbow Rheumatologic History: Patient was 1st evaluated in this practice 02/29/2024 with right elbow arthritis. At that time there was swelling, warmth and tenderness noted to the right elbow as well as the right wrist and right shoulder. There were no other joints involved. Arthrocentesis was done which showed inflammatory fluid without crystals and negative cultures. 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 Patient ultimately diagnosed with seropositive rheumatoid arthritis. 02/2024. Methotrexate 15mg weekly 05/2024. Methotrexate increased to 20mg weekly due to remaining disease activity Current Rheumatology Medication(s): Methotrexate 15 mg weekly Folic acid 1 mg daily except methotrexate days [facility] Medical History (Updated 06/15/24 @ 12:05 by Argenis Brenner MD) Arthritis of both knees Arthritis of left knee Arthritis of right knee On methotrexate therapy Rheumatoid arthritis Rheumatoid arthritis flare CAD (coronary artery disease) HTN (hypertension) Surgical History History of appendectomy Social History Alcohol intake: never Patient Tobacco Use Status: Former Tobacco user Years Smoked: 45 years Quit in 2018 Current occupational status: employed and retired 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 Review of Systems Const Details: Review of Systems Constitutional: Denies fever, chills, weight loss ENT: Denies vision changes, eye pain or eye redness, dental caries, dry mouth GI: Denies nausea, vomiting, diarrhea, abdominal pain, change in BM Pulm: Denies SOB, SARAVIA, hemoptysis, wheezing Cards: Denies chest pain, palpitations Skin: Denies Raynaud's, rash, nail changes, photosensitivity, FINANCIAL DIRECTOR: Denies headaches, weakness, paresthesias, recurrent falls MSK: as per HPI All other systems reviewed and are unremarkable except noted above Physical Exam Vital Signs: Last Vital Signs Pulse 81 06/15/24 11:17 BP 142/80 H 06/15/24 11:17 Pulse Ox 90 L 06/15/24 11:17 Oxygen Delivery Method Room Air 06/15/24 11:17 Vital signs reviewed Physical Examination CONSTITUITIONAL Patient alert and cooperative. Well appearing and in no apparent painful distress HEENT Conjunctiva and sclera clear. ?Pupils equal round and reactive to light. ?No lymphadenopathy. ? CHEST/RESPIRATORY SYSTEM Normal respiratory effort and able to speak in complete sentences. ?Clear to auscultation bilaterally. ?No crackles, rales, rhonchi, wheezes heard. CARDIAC SYSTEM Regular rate and rhythm. ?S1 and S2 heard no murmurs. ?Radial pulses intact bilaterally MSK Hands: ?Good bench press operator strength bilaterally. No deformities noted. ?No synovitis noted to the MCPs, PIPs or DIPs. ?No tenderness to palpation of these joints. Wrists: ?Fullness noted to the right wrist with restricted range of motion to about 50-60 degrees of extension (normal is 70-80 degrees). Normal wrists flexion range of motion. Left wrists with full range of motion. Elbows: Right elbow with limited range of motion up to 120 degrees instead of the full 180 degrees. However this is markedly improved compared to the last exam Shoulders: Full range of motion without pain. No tenderness, weakness, swelling, increased warmth or erythema. Hips: Full range of motion without pain. Hip bursa: No tenderness to palpation Knees: ?Full range of motion. ?No tenderness, swelling, increased warmth or erythema.?No effusion or crepitations Ankles: Full range of motion. ?No tenderness, swelling, increased warmth or erythema.? Feet: ?Negative squeeze test. ?No tenderness to palpation or swelling of the MTPs. Tender points:?No tenderness to palpation of the bilateral trapezius, supraspinatus, greater trochanters, anterior costochondral junctions, bilateral gluteal areas, bilateral suboccipital muscle insertions SKIN Skin intact without rashes. Results Reviewed Results Reviewed: Laboratory Tests 03/09/24 03/09/24 06/12/24 16:38 16:43 09:06 WBC 6.8 RBC 4.16 L Hgb 11.4 L Hct 35.5 L Plt Count 279 ESR 85 H 58 H Sodium 140 142 Potassium 4.0 4.0 Chloride 104 110 H Carbon Dioxide 23 24 BUN 18 H 19 H Creatinine 0.97 1.05 C-Reactive Protein 1.39 H 0.35 Total Protein 7.9 8.1 H Albumin 3.7 3.9 Rheumatoid Factor 323.6 H Cycl Citrul Peptide IgG >250 H Laboratory Tests 06/12/24 09:06 Hepatitis A IgM Ab Nonreactive Hep Bs Antigen Negative Hep Bs Antibody NONREACTIVE Hep B Core Total Ab Nonreactive Hepatitis C Ab (EIA) Nonreactive XR Bilateral Hands and Wrists 06/12/24 Findings (Left Hand): No acute fracture or dislocation identified. Small erosions noted around multiple joints. These are most prominent in the 2nd and 3rd IP joints. Findings would be consistent with rheumatoid arthritis. Findings (Right Hand): No acute fracture or dislocation identified. No focal bony erosion identified. No radiopaque foreign body noted. Assessment & Plan Assessment & Plan (1) Rheumatoid arthritis: Comment: diagnosed 02/2024. High titre RF and CCP 02/2024. Methotrexate 15mg 05/2024. Methotrexate increased to 20mg due to lingering disease activity Code(s): M06.9 - Rheumatoid arthritis, unspecified Category: Medical Qualifiers: Rheumatoid arthritis location: multiple sites Rheumatoid factor presence: with rheumatoid factor Qualified Code(s): M05.79 - Rheumatoid arthritis with rheumatoid factor of multiple sites without organ or systems involvement Plan: #Seropositive erosive rheumatoid arthritis Patient is a 69-year-old female with newly diagnosed seropositive erosive rheumatoid arthritis. X-rays of the hands show erosions in both the wrists and the MCPs. Started on methotrexate and doing well but there still is some lingering disease activity so we will increase the methotrexate from 6 pills weekly to 8 pills weekly She informed me that the pharmacy is only giving her 800 mcg of the folic acid and I told her that if they are only giving her 800 mcg she should take 2 pills instead of 1 I would prefer her to be taking more than 1 mg than less than 1 mg. 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 Limit alcohol and avoid Bactrim ? Monitoring: ?CBC, BMP, LFTs every 3-4 months and hepatitis serologies as needed Plan I spent 35 minutes reviewing the record and labs, taking a history, examining the patient, discussing the treatment plan and documenting in the medical record Orders: Orders C Reactive Protein 4 Months M05.79 - Rheumatoid arthritis with rheumatoid factor of multiple sites without organ or systems involvement, Z79.631 - senior living (current) use of antimetabolite agent T Spot TB 4 Months M05.79 - Rheumatoid arthritis with rheumatoid factor of multiple sites without organ or systems involvement, Z79.631 - senior living (current) use of antimetabolite agent Erythrocyte Sedimentation Rate 4 Months M05. 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 of antimetabolite agent Medications: Changed From methotrexate sodium 15 mg (6 x 2.5 mg) PO QWEEK 90 days 78 tabs 1RF M06.9 - Rheumatoid arthritis, unspecified To methotrexate sodium 20 mg (8 x 2.5 mg) PO QWEEK 104 tabs 1RF 90 days M06.9 - Rheumatoid arthritis, unspecified Refilled folic acid 1 mg PO DAILY 90 tabs 1RF 90 days M06.9 - Rheumatoid arthritis, unspecified Discontinued celecoxib (Celebrex) Discontinued Reason: Doctor's Order 200 mg PO BID 30 days 60 caps 3RF tramadol Discontinued Reason: Doctor's Order 50 mg PO Q8H PRN 40 tabs 0RF pain Coding Level of Care Code Est Pt Level 4 (13720) Complex EM visit Add On G2211 Diagnoses Rheumatoid arthritis involving multiple sites with positive rheumatoid factor . Rheumatoid arthritis location: multiple sites Rheumatoid factor presence: with rheumatoid factor On methotrexate therapy Z79.631
[2024-06-15 11:17] VITALS: BP 142/80; PULSE 81; O2SAT 90
--- OUTSIDE RECORDS SUMMARY | 2024-06-15 14:58 | XMS_ITS | Clinical Summary ---
[facility] Organization [facility] Address [address] [place] [address] Care Team Providers Care Lock Maintenance Supervisor Name Role Phone Talita Aparicio MD Primary Care Provider +1- [phone] Surgical History Surgery Date Site/Laterality Comments OTHER SURGICAL HISTORY PROCEDURE: [place] UNLISTED PX FEMALE GENITAL SYSTEM NONOBSTETRICAL; COMMENT: [...] age to complete this topic Care Teams Lock Maintenance Supervisor Relationship Specialty Start Date End Date Talita Aparicio MD [facility] [place] [address] PCP - General Internal Medicine 09/21/14
== END 2024-06-15 11:46 | disposition home or self-care (01) ==
PROVIDERS: PCP Physician Assistant Medical; Visit Provider Student in an Organized Health Care Education/Training Program
DX: M05.79 Rheumatoid arthritis with rheumatoid factor of multiple sites without organ or systems involvement (principal); Z79.631 Long term (current) use of antimetabolite agent
CPT/HCPCS: 99214

== ENCOUNTER 2024-10-10 15:05 | Outpatient (REF) | payer MEDICARE, SELFPAY ==
--- OUTSIDE RECORDS SUMMARY | 2024-10-10 15:09 | XMS_ITS | Clinical Summary ---
Author Organization [facility] [address] [facility] Address [address] [place], [place] Phone Care Team Providers Care Strike Out Machine Operator Name Role Phone Talita Aparicio MD Primary Care Provider +1- [phone] Encounters Date Type Department Care Team Description 09/07/2024 Telephone [facility] [place] [address] [place] [id number] Yobany Cortés MD external referral from Last 3 Months Surgical History Surgery Date Site/Laterality Comments OTHER SURGICAL HISTORY PROCEDURE: [place] UNLISTED PX FEMALE GENITAL SYSTEM NONOBSTETRICAL; COMMENT: urethral cyst TONSILLECTOMY PROCEDURE: HISTORICAL TONSILLECTOMY APPENDECTOMY PROCEDURE: HISTORICAL APPENDECTOMY BREAST BIOPSY Right PROCEDURE: BX BREAST; PERC NEEDLE CORE W/IMAG GUID Medical History Medical History Date Comments Other dyspnea and respirator y abnormality 02/04/2005 DX:Other dyspnea and respira tory abnormality Morbid obesity (CMS/HCC V24, CMS/HCC V28) 02/04/2005 DX:Morbid obesity (HCC) Benign neoplasm of pituitary gland and craniopharyngeal duct (pouch) (CMS/HCC V24, CMS/HCC V28) 02/04/2005 DX:Benign neoplasm of pituit steve gland and craniopharyngeal duct (pouch) (HCC) Thyroid [...] drink = 0.6 oz pur e alcohol) Comments Unknown Sex and Gender Information Value Date Recorded Sex Assigned at Not on file Legal Sex Female 12:35 PM EST Gender Identity Not on file Sexual Orientation [...] 1966 Diabetes: Annual Retina Eye Exam 1966 Pneumococcal Vaccine: 50+ Years (1 of 1 - PCV) 2006 Zoster Vaccines (1 of 2) 2006 DTaP,Tdap,and Td Vaccines (2 - Td or Tdap) 10/11/2008 10/11/1998 RSV Immunization Adult Patients (1 - Risk 60-74 years 1-dose series) 2016 Cholesterol Screening (Lipid Panel) 04/14/2022 Colorectal Cancer Screening: Colonoscopy 04/14/2022 Depression Screening 04/14/2022 Falls Risk Assessment 04/14/2022 Hepatitis C Screening 04/14/2022 Osteoporosis Screening (Bone Density Screening) 04/14/2022 Social Influencers of Health Screening 04/14/2022 Diabetes: Annual Urine Albumin-Creatinine Ratio (uACR) 04/23/2022 Diabetes: Blood Sugar Contro l Test (HGBA1C) 04/23/2022 COVID-19 Vaccine (1 - 2023-2 5 season) 2024 Influenza Vaccine (Season Ended) 2025 Hepatitis B Vaccines Completed 06/12/1994, 12/25/1993, 11/21/1993 [...] patient's age to complete this topic Meningococcal B Vaccine Aged Out No l onger eligible based on patient's age to complete this topic RSV Immunization Patients Under 20 months Aged Out No longer eligible b ased on patient's age to complete this topic Varicella Vaccines Aged Out No longer eligible based on patient's age to complete this topic Insurance [employer] [place] [id number] Care Teams Strike Out Machine Operator Relationship Specialty Start Date End Date Talita Aparicio MD [address] [place] [address] PCP - General Internal Medicine 09/21/14
[2024-10-10 15:23] LABS: MANUAL DIFF FLAG NO
[2024-10-10 15:37] LABS: Basophils Percent Auto 0.4 % (0-2); Eosinophils Absolute Auto 0.4 X10*3/uL (0.0-0.4); Eosinophils Percent Auto 4.9 % (0-4); Hematocrit 32.4 % (37.0-47.0); Hemoglobin 10.8 g/dl (12.0-16.0); Imm Gran Abs Auto 0.03 X10*3/uL (0.00-0.03); Imm Gran Pct Auto 0.4 % (0.0-0.4); Lymphocytes Absolute Auto 2.1 X10*3/uL (1.2-4.9); Lymphocytes Percent Auto 25.5 % (20-40); Mean Corpuscular HGB Conc 33.3 g/dl (31.0-35.0); Mean Corpuscular Hemoglobin 27.5 pg (27.0-33.0); Mean Corpuscular Volume 82.4 fL (80.0-98.0); Mean Platelet Volume 9.5 fL (9.4-12.3); Monocytes Absolute Auto 0.4 X10*3/uL (0.1-1.2); Monocytes Percent Auto 4.5 % (2-11); Neutrophils Absolute Auto 5.3 x10*3/uL (2.0-8.3); Neutrophils Percent Auto 64.3 % (45-73); Platelet Count 235 X10*3/uL (160-400); Red Blood Count 3.93 X10*6/uL (4.20-5.50); Red Cell Distribution Width 14.4 % (11.0-16.0); White Blood Count 8.3 X10*3/uL (4.8-10.8)
[2024-10-10 16:25] LABS: Alanine Aminotransferase 24 U/L (0-31); Albumin Level 3.4 g/dL (3.5-5.0); Alkaline Phosphatase 67 U/L (39-117); Anion Gap 13 (12-20); Aspartate Amino Transferase 31 U/L (5-31); Bilirubin Total 0.4 mg/dL (0.0-1.0); Blood Urea Nitrogen 18 mg/dL (9-16); C Reactive Protein 0.82 mg/dL (< or = 0.50); Calcium 9.2 mg/dL (8.4-10.2); Carbon Dioxide 26 mmol/L (22-29); Chloride 102 mmol/L (96-108); Estimated Glomerular Filt Rate > 60; Glucose Random 116 mg/dL (60-115); Potassium 3.8 mmol/L (3.3-5.1); Sodium 137 mmol/L (135-145); Total Protein 6.8 g/dL (6.5-8.0)
[2024-10-10 16:26] LABS: Erythrocyte Sedimentation Rate 96 MM/HR (0-20)
[2024-10-13 00:34] LABS: TS Negative Control Passed; TS Panel A 0; TS Panel B 1; TS Positive Control Passed; TSpotTB Negative (Negative)
== END 2024-10-10 15:06 | disposition home or self-care (01) ==
LOC: HO.LAB 15:05
PROVIDERS: PCP Physician Assistant Medical; Visit Provider Student in an Organized Health Care Education/Training Program
DX: M05.79 Rheumatoid arthritis with rheumatoid factor of multiple sites without organ or systems involvement (principal); Z79.631 Long term (current) use of antimetabolite agent
CPT/HCPCS: 36415; 80053; 85025; 85652; 86140; 86481

== ENCOUNTER 2024-10-13 12:27 | Outpatient (AMB) | payer MEDICARE, SELFPAY ==
[2024-10-13 12:36] VITALS: BP 140/74; PULSE 81; O2SAT 93; BMI 35.6
--- NOTE | 2024-10-13 12:36 | A.OFFVIS_ITS ---
Vital Signs 10/13/24 12:36 Height 5 ft 6.5 in Weight 223 lb 15.834 oz BMI 35.6 BP 140/74 H Blood Pressure Location Lt brachial Position Sitting Pulse 81 Pulse Source Pulse Oximeter Pulse Oximetry (%) 93 Oxygen Delivery Method Room Air Intake Visit Reasons: Follow up Intake Note: Patient presents for follow up on RA and lab review. Patient complains of bilateral elbow pain and right ring finger keeps getting locked. Allergies No Known Allergies Allergy (Verified 10/13/24 12:38) Medication List - Last Reconciled 10/13/24 by Argenis Brenner MD beclomethasone dipropionate 40 mcg/actuation (Qvar RediHaler) 2 inhalations inhalation BID ciclesonide 80 mcg/actuation (Alvesco) 1 puff inhalation BID empagliflozin (Jardiance) 10 mg PO DAILY folic acid 1 mg PO DAILY 90 days hydralazine 25 mg PO BID hydrochlorothiazide 25 mg PO DAILY insulin glargine (Lantus Solostar U-100 Insulin) units subcut levalbuterol tartrate 45 mcg/actuation 1 puff inhalation Q4-6H PRN metformin 1,000 mg PO BID methotrexate sodium 20 mg PO QWEEK metoprolol tartrate 50 mg PO BID rosuvastatin 40 mg PO DAILY HPI Comments Details: Patient is a 68-year-old female former smoker with 35+ pack years, hypertension complicated by coronary artery disease status post stent, diabetes on insulin complicated by diabetic neuropathy, and COPD who is here to follow up of seropositive erosive rheumatoid arthritis Interval History: Patient last seen 06/15/2024 with me. At that time she was following up for her newly diagnosed seropositive erosive rheumatoid arthritis. She had improvement on methotrexate monotherapy however still continued to have mild disease activity and so the methotrexate was increased from 6 pills weekly to 8 pills weekly Today she notes continued improvement on the increase in methotrexate pills. Had some time with right elbow pain but it was short-lived. Today complaining of right ring finger trigger finger that is painful Rheumatologic History: Patient was 1st evaluated in this practice 02/29/2024 with right elbow arthritis. At that time there was swelling, warmth and tenderness noted to the right elbow as well as the right wrist and right shoulder. There were no other joints involved. Arthrocentesis was done which showed inflammatory fluid without crystals and negative cultures. 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 Patient ultimately diagnosed with seropositive rheumatoid arthritis. 02/2024. Methotrexate 15mg weekly 05/2024. Methotrexate increased to 20mg weekly due to remaining disease activity Current Rheumatology Medication(s): Methotrexate 20 mg weekly Folic acid 1 mg daily except methotrexate days PFSH Medical History (Updated 06/15/24 @ 12:05 by Argenis Brenner MD) Arthritis of both knees Arthritis of left knee Arthritis of right knee On methotrexate therapy Rheumatoid arthritis Rheumatoid arthritis flare CAD (coronary artery disease) HTN (hypertension) Surgical History History of appendectomy Social History Alcohol intake: never Patient Tobacco Use Status: Former Tobacco user Years Smoked: 45 years Quit in 2018 Current occupational status: employed and retired 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 Review of Systems Const Details: Review of Systems Constitutional: Denies fever, chills, weight loss ENT: Denies vision changes, eye pain or eye redness, dental caries, dry mouth GI: Denies nausea, vomiting, diarrhea, abdominal pain, change in BM Pulm: Denies SOB, SARAVIA, hemoptysis, wheezing Cards: Denies chest pain, palpitations Skin: Denies Raynaud's, rash, nail changes, photosensitivity, TELEGRAPH OPERATOR: Denies headaches, weakness, paresthesias, recurrent falls MSK: as per HPI All other systems reviewed and are unremarkable except noted above Physical Exam Vital Signs: Last Vital Signs Pulse 81 10/13/24 12:36 BP 140/74 H 10/13/24 12:36 Pulse Ox 93 10/13/24 12:36 Oxygen Delivery Method Room Air 10/13/24 12:36 BMI result Body Mass Index 35.6 Vital signs reviewed Physical Examination CONSTITUITIONAL Patient alert and cooperative. Well appearing and in no apparent painful distress HEENT Conjunctiva and sclera clear. ?Pupils equal round and reactive to light. ?No lymphadenopathy. ? CHEST/RESPIRATORY SYSTEM Normal respiratory effort and able to speak in complete sentences. ?Clear to auscultation bilaterally. ?No crackles, rales, rhonchi, wheezes heard. CARDIAC SYSTEM Regular rate and rhythm. ?S1 and S2 heard no murmurs. ?Radial pulses intact bilaterally MSK Hands: ?Good supervisor shearing strength bilaterally. No deformities noted. ?No synovitis noted to the MCPs, PIPs or DIPs. ?Tenderness to palpation of the right 4th MCP. Right ring finger trigger finger Wrists: ?Right wrist with restricted range of motion to about 50-60 degrees of extension (normal is 70-80 degrees). Normal wrists flexion range of motion. Left wrists with full range of motion. No tenderness to palpation bilaterally Elbows: Right elbow with limited range of motion up to 120 degrees instead of the full 180 degrees. However this is markedly improved compared to the last exam Shoulders: Full range of motion without pain. No tenderness, weakness, swelling, increased warmth or erythema. Knees: ?Full range of motion. ?No tenderness, swelling, increased warmth or erythema.?No effusion or crepitations Ankles: Full range of motion. ?No tenderness, swelling, increased warmth or erythema.? Feet: ?Negative squeeze test. ?No tenderness to palpation or swelling of the MTPs. Tender points:?No tenderness to palpation of the bilateral trapezius, supraspinatus, greater trochanters, anterior costochondral junctions, bilateral gluteal areas, bilateral suboccipital muscle insertions SKIN Skin intact without rashes. Office Procedures AMB Joint Injection/Aspiration Joint Injection/Aspiration Details: Procedure was explained to the patient and consent was obtained. ? The area of interest was identified and confirmed with patient. ?This was subsequently cleaned with chlorhexidine x3. ? The area was then anesthetized using ethyl chloride spray. 40 mg Kenalog with 1 cc 1% lidocaine was injected without issue. ?Minimal to no bleeding. ?Patient tolerated procedure. Primary Site: right trigger finger Prep: site was prepped using aseptic technique and ethochloride spray was applied Injected: 40 mg of, Kenalog, with 1 mL of and 1% plain lidocaine Procedure: The patient tolerated the procedure well Coding 37304 - Bicipital Groove Injection Procedure code (CPT) selection complete Office Meds lidocaine (PF) 10 mg/mL (1 %) injection solution Performing Provider: Argenis Brenner MD Performing Location: [facility] Administered by: Argenis Brenner MD on 10/13/24 13:19 Dose Route Admin Location Dispensed Lot Number Expiration Date [facility] [employer] 1 mL Infiltration right 4th trigger finger 2 mL [id number] 07/15/26 89895-915-99 [facility] Kenalog 40 mg/mL suspension for injection Performing Provider: Argenis Brenner MD Performing Location: [facility] Administered by: Argenis Brenner MD on 10/13/24 13:19 Dose Route Admin Location Dispensed Lot Number Expiration Date [employer] 40 mg Tendon Sheath Inj. right 4th trigger finger 1 mL [id number] 08/15/26 2262-3746-69 [employer] Results Reviewed Results Reviewed: Laboratory Tests 06/12/24 10/10/24 09:06 15:21 WBC 8.3 RBC 3.93 L Hgb 10.8 L Hct 32.4 L Plt Count 235 ESR 96 H Sodium 137 Potassium 3.8 Chloride 102 Carbon Dioxide 26 Anion Gap 13 Creatinine 0.86 AST 31 ALT 24 C-Reactive Protein 0.35 0.82 H Rheumatology Labs 03/09/24 03/09/24 16:38 16:43 Rheumatoid Factor 323.6 H Cycl Citrul Peptide IgG >250 H HINA Screen POSITIVE A HINA Titer 1:40 H Infectious Labs 06/12/24 10/10/24 09:06 15:21 Hepatitis A IgM Ab Nonreactive Hep Bs Antigen Negative Hep Bs Antibody NONREACTIVE Hep B Core Total Ab Nonreactive Hepatitis C Ab (EIA) Nonreactive TB Test (T-Spot) Com Negative Assessment & Plan Assessment & Plan (1) Rheumatoid arthritis: Comment: diagnosed 02/2024. High titre RF and CCP 02/2024. Methotrexate 15mg 05/2024. Methotrexate increased to 20mg due to lingering disease activity Code(s): M06.9 - Rheumatoid arthritis, unspecified Category: Medical Qualifiers: Rheumatoid arthritis location: multiple sites Rheumatoid factor presence: with rheumatoid factor Qualified Code(s): M05.79 - Rheumatoid arthritis with rheumatoid factor of multiple sites without organ or systems involvement Plan: #Seropositive erosive rheumatoid arthritis Patient is a 69-year-old female with newly diagnosed seropositive erosive rheumatoid arthritis. X-rays of the hands show erosions in both the wrists and the MCPs. Started on methotrexate and doing well but there still is some lingering disease activity so the methotrexate was increased to 8 pills weekly. Doing much better today. We will continue to monitor on this dosage Plan - Methotrexate 20mg weekly - Folic acid 1mg daily - RTC 3 months - Labs before next visit: CBC, CMP, ESR, CRP (2) Trigger finger, right ring finger: Code(s): M65.341 - Trigger finger, right ring finger Plan: #Right ring finger trigger finger Patient with right ring finger trigger finger status post steroid injection today. Recommending splinting for 2 weeks to aid in healing (3) On methotrexate therapy: Comment: started 02/2024 Code(s): Z79.631 - correction (current) use of antimetabolite agent Category: Medical Plan: #Long-term Current Use of Methotrexate Discussed with patient the benefits and risks of methotrexate for managing their rheumatic condition Benefits include reduced pain, reduced mortality, maintenance of remission and reduction of flares Risks include oral ulcers, photosensitivity, hepatotoxicity, hematologic toxicity, pneumonitis, flu-like symptoms (especially day after administration), nodulosis, lymphomas ? Limit alcohol and avoid Bactrim ? Monitoring: ?CBC, BMP, LFTs every 3-4 months and hepatitis serologies as nee ded Plan I spent 30 minutes reviewing the record and labs, taking a history, examining the patient, discussing the treatment plan and documenting in the medical record Orders: Orders Complete Blood Count Auto Diff 3 Months M05.79 - Rheumatoid arthritis with rheumatoid factor of multiple sites without organ or systems involvement Comprehensive Met. Panel 3 Months M05.79 - Rheumatoid arthritis with rheumatoid factor of multiple sites without organ or systems involvement C Reactive Protein 3 Months M05.79 - Rheumatoid arthritis with rheumatoid factor of multiple sites without organ or systems involvement Erythrocyte Sedimentation Rate 3 Months M05.79 - Rheumatoid arthritis with rheumatoid factor of multiple sites without organ or systems involvement AMB Joint Injection/Aspiration Today M65.341 - Trigger finger, right ring finger Medications: New lidocaine (PF) 1 mL Infiltration ONCE 2 mL 0RF M65.341 - Trigger finger, right ring finger Kenalog (triamcinolone acetonide) 40 mg Tendon Sheath Inj. ONCE 1 mL 0RF NS M65.341 - Trigger finger, right ring finger Changed From methotrexate sodium 20 mg PO QWEEK M06.9 - Rheumatoid arthritis, unspecified To methotrexate sodium 20 mg (8 x 2.5 mg) PO QWEEK 90 days 104 tabs 1RF M06.9 - Rheumatoid arthritis, unspecified Refilled folic acid 1 mg PO DAILY 90 days 90 tabs 1RF M06.9 - Rheumatoid arthritis, unspecified Coding Level of Care Code Est Pt Level 4 (93663) Complex EM visit Add On G2211 Diagnoses Rheumatoid arthritis involving multiple sites with positive rheumatoid factor M05.79 Rheumatoid arthritis location: multiple sites Rheumatoid factor presence: with rheumatoid factor Trigger finger, right ring finger M65.341 On methotrexate therapy Z79.631 CPT Codes Coding - Joint 1: 40363 - Bicipital Groove Injection ([id number])
--- OUTSIDE RECORDS SUMMARY | 2024-10-13 12:55 | XMS_ITS | Clinical Summary ---
Author Organization [facility] [address] [facility] Address [address] [place], [place] Phone Care Team Providers Care Pump Stitcher Name Role Phone Talita Aparicio MD Primary Care Provider +1- [phone] Encounters Date Type Department Care Team Description 09/07/2024 Telephone [facility] [place] [address] [place] [id number] Yobany Cortés MD external referral from Last 3 Months Surgical History Surgery Date Site/Laterality Comments OTHER SURGICAL HISTORY PROCEDURE: [place] UNLISTED PX FEMALE GENITAL SYSTEM NONOBSTETRICAL; COMMENT: [...] to complete this topic Insurance [employer] [place] [id number] Care Teams Pump Stitcher Relationship Specialty Start Date End Date Talita Aparicio MD [address] [place] [address] PCP - General Internal Medicine 09/21/14
== END 2024-10-13 13:05 | disposition home or self-care (01) ==
LOC: HO.RHE 12:28
PROVIDERS: PCP Physician Assistant Medical; Visit Provider Student in an Organized Health Care Education/Training Program
DX: M05.79 Rheumatoid arthritis with rheumatoid factor of multiple sites without organ or systems involvement (principal); M65.341 Trigger finger, right ring finger; Z79.631 Long term (current) use of antimetabolite agent
CPT/HCPCS: 20550; 99214

== ENCOUNTER → 2024-10-13 12:27 | Outpatient (BNVA) | payer MEDICARE, SELFPAY | PROVIDERS: PCP Physician Assistant Medical; Visit Provider Student in an Organized Health Care Education/Training Program | DX: M65.341 Trigger finger, right ring finger (principal); M06.9 Rheumatoid arthritis, unspecified; M05.79 Rheumatoid arthritis with rheumatoid factor of multiple sites without organ or systems involvement; E11.65 Type 2 diabetes mellitus with hyperglycemia; E78.5 Hyperlipidemia, unspecified; I10 Essential (primary) hypertension; M25.522 Pain in left elbow; M25.521 Pain in right elbow; Z79.4 Long term (current) use of insulin; Z79.631 Long term (current) use of antimetabolite agent | CPT/HCPCS: 20550; 82947; 99202; 99212; J3300 ==

== ENCOUNTER 2024-10-13 13:53 | Outpatient (AMB) | payer MEDICARE, SELFPAY ==
--- NOTE | 2024-10-13 13:55 | A.OFFVIS_ITS ---
Vital Signs 10/13/24 13:56 Height 5 ft 6.5 in Weight 223 lb 15.834 oz BMI 35.6 BP 140/60 H Blood Pressure Location Rt brachial Position Sitting Pulse 88 Pulse Source Pulse Oximeter Pulse Oximetry (%) 93 Oxygen Delivery Method Room Air Intake Visit Reasons: T2DM Intake Note: Patient present today for Type 2 Diabetes Mellitus Last Diabetic eye exam:06/10 Last Podiatry Visit: has not seen one Random Glucose: 144 mg/dl HgA1C: 7.4% 10/06/2024 [facility] Body Corporate Manager Required: No Allergies No Known Allergies Allergy (Verified 10/13/24 13:55) Medication List - Last Reconciled 10/13/24 by Viviana Grant PA-C beclomethasone dipropionate 40 mcg/actuation (Qvar RediHaler) 2 inhalations inhalation BID ciclesonide 80 mcg/actuation (Alvesco) 1 puff inhalation BID empagliflozin (Jardiance) 10 mg PO DAILY folic acid 1 mg PO DAILY 90 days hydralazine 25 mg PO BID hydrochlorothiazide 25 mg PO DAILY insulin glargine (Lantus Solostar U-100 Insulin) units subcut levalbuterol tartrate 45 mcg/actuation 1 puff inhalation Q4-6H PRN metformin 1,000 mg PO BID methotrexate sodium 20 mg (8 x 2.5 mg) PO QWEEK 90 days metoprolol tartrate 50 mg PO BID rosuvastatin 40 mg PO DAILY HPI HPI T2DM: Details: Patient is a 69-year-old female with a significant past medical history of rheumatoid arthritis, COPD, hypertension, hyperlipidemia, CAD and type 2 diabetes presenting today for an initial visit regarding her type 2 diabetes. Endo: Was diagnosed with diabetes 2014. Last A1c with PCP was 7.4. She states that this is her best a1c because she quit eating sugar. She is currently managed on metformin 1000 mg twice a day, Jardiance 10 mg daily, Lantus 40. She is interested in starting a medication help her with weight loss. She understands that this is contributing to her diabetes. Previous medications: none Denies any hypoglycemia CGM- never had one Follows with Ophthalmology - last seen May, glaucoma Does not have a headwaiter/headwaitress. States that she is going to wait on seeing someone. Does not want to see a building services supervisor or staff educator at this point. 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 CV: Blood pressure today in the office is 140/60. She is currently on metoprolol 50 mg twice a day, hydrochlorothiazide 25 mg daily, and hydralazine bid. Cholesterol is managed with Crestor 40 mg. 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 Physical Exam Vital Signs: Last Vital Signs Pulse 88 10/13/24 13:56 BP 140/60 H 10/13/24 13:56 Pulse Ox 93 10/13/24 13:56 Oxygen Delivery Method Room Air 10/13/24 13:56 BMI result Body Mass Index 35.6 Const Orientation/consciousness: patient oriented x3 HEENT Ears: hearing grossly normal bilaterally Neck Thyroid: Thyroid normal Lymphatic: no lymphadenopathy noted Resp Auscultation: clear to auscultation bilaterally Cardio Rate: regular rate Rhythm: regular rhythm Heart sounds: S1 normal heart sound present and S2 normal heart sound present GI Inspection: Yes normal to inspection Palpation (GI): Soft to palpation and Other GI palpation findings present (nontender, no cva tenderness) Auscultation: normoactive bowel sounds Rectal Exam - Female: deferred Skin General skin exam: no rashes or lesions noted Neuro General: patient oriented x3, gait normal and no focal motor deficits Extrem Other: Wearing tight today in the office and did not want a foot exam. Assessment & Plan Assessment & Plan (1) Type 2 diabetes mellitus with hyperglycemia, with long-term current use of insulin: Code(s): E11.65 - Type 2 diabetes mellitus with hyperglycemia; Z79.4 - tank terminal gauger (current) use of insulin Category: Medical Plan: 60 minutes spent today in [id number] time discussing the pathophysiology of diabetes, the differences between type 1 and type 2 diabetes and complications associated with diabetes including but not limited to amputations, kidney disease, blindness, heart attack, stroke, infections etc.. We will start Trulicity. Discussed risks and benefits and adverse effects of this medication including risk of nausea, vomiting, diarrhea, pancreatitis. No family history of endocrine malignancy. Continue Lantus 40 units, metformin 1000 mg twice a day, and Jardiance 10 mg daily I did offer to give her a freestyle Deangelo 3+ in the office today but she wants to use it with a reader. Does not want this on her phone. I have ordered the prescriptions for her. Discussed the importance of having a backup method to monitor blood sugars. We reviewed rule of 15. States that she treats low blood sugars with orange juice and we will get her own glucose tabs. (2) HTN (hypertension): Code(s): I10 - Essential (primary) hypertension Category: Medical Plan: Continue current regimen (3) Hyperlipidemia: Code(s): E78.5 - Hyperlipidemia, unspecified Category: Medical Plan: Continue current regimen. States that her PCP just did lipids and she will get a copy of her labs and send them to me. Medications: New dulaglutide (Trulicity) 0.75 mg (0.5 mL) subcut QWEEK 2 mL 3RF lancets (OneTouch UltraSoft 2 Lancet) use daily As directed to monitor blood sugars 100 ea 2RF E11.65 - Type 2 diabetes mellitus with hyperglycemia, Z79.4 - tank terminal gauger (current) use of insulin blood-glucose sensor (FreeStyle Deangelo 3 Plus Sensor device) Use daily As directed to monitor glucose 2 ea 5RF E11.65 - Type 2 diabetes mellitus with hyperglycemia, Z79.4 - detention (current) use of insulin blood sugar diagnostic (OneTouch Ultra Test strips) Use daily As directed to monitor blood glucose 100 ea 3RF E11.65 - Type 2 diabetes mellitus with hyperglycemia, Z79.4 - detention (current) use of insulin blood-glucose,wrecking 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
[2024-10-13 13:56] VITALS: BP 140/60; PULSE 88; O2SAT 93; BMI 35.6
[2024-10-13 14:12] LABS: Glucose, Whole Blood 144 mg/dL (60-115)
== END 2024-10-13 14:47 | disposition home or self-care (01) ==
LOC: HO.ENCR 13:54
PROVIDERS: PCP Physician Assistant Medical; Visit Provider Physician Assistant
DX: E11.65 Type 2 diabetes mellitus with hyperglycemia (principal); Z79.4 Long term (current) use of insulin; I10 Essential (primary) hypertension; E78.5 Hyperlipidemia, unspecified

== ENCOUNTER 2024-11-10 13:41 | Outpatient (AMB) | payer MEDICARE, SELFPAY ==
--- NOTE | 2024-11-10 13:44 | MHC.OFFVIS ---
Vital Signs 11/10/24 13:45 Height 5 ft 6.5 in Weight 218 lb 0.595 oz BMI 34.7 BP 154/68 H Blood Pressure Location Lt brachial Position Sitting Pulse 78 Pulse Source Pulse Oximeter Pulse Oximetry (%) 95 Oxygen Delivery Method Room Air Intake Visit Reasons: T2DM Intake Note: Patient present today for Type 2 Diabetes Mellitus Last Diabetic eye exam: 06/2024 Last Podiatry Visit: Doesn't have one Random Glucose: 99 mg/dl HgA1C: 7.1% Youth Corrections Officer Required: No Accompanied by: Self / Same As Patient Allergies No Known Allergies Allergy (Verified 11/10/24 13:51) Medication List - Last Reconciled 11/10/24 by Viviana Grant PA-C beclomethasone dipropionate 40 mcg/actuation (Qvar RediHaler) 2 inhalations inhalation BID blood sugar diagnostic ([place] Ultra Test strips) Use daily As directed to monitor blood glucose blood-glucose sensor (FreeStyle Deangelo 3 Plus Sensor device) Use daily As directed to monitor glucose blood-glucose,special events coordinator,cont (FreeStyle Deangelo 3 [place]) Use daily As directed to monitor blood glucose ciclesonide 80 mcg/actuation (Alvesco) 1 puff inhalation BID dulaglutide (Trulicity) 0.75 mg (0.5 mL) subcut QWEEK empagliflozin (Jardiance) 10 mg PO DAILY folic acid 1 mg PO DAILY 90 days hydralazine 25 mg PO BID hydrochlorothiazide 25 mg PO DAILY insulin glargine (Lantus Solostar U-100 Insulin) units subcut lancets (OneTouch UltraSoft 2 Lancet) use daily As directed to monitor blood sugars levalbuterol tartrate 45 mcg/actuation 1 puff inhalation Q4-6H PRN metformin 1,000 mg PO BID methotrexate sodium 20 mg (8 x 2.5 mg) PO QWEEK 90 days metoprolol tartrate 50 mg PO BID rosuvastatin 40 mg PO DAILY HPI HPI T2DM: Details: Patient is a 69-year-old female with a significant past medical history of rheumatoid arthritis, COPD, hypertension, hyperlipidemia, CAD and type 2 diabetes presenting today for an initial visit regarding her type 2 diabetes. Endo: Was diagnosed with diabetes 2015. A1c today in office 7.1. She states that this is her best a1c because she quit eating sugar. She is currently managed on metformin 1000 mg twice a day, Jardiance 10 mg daily, Lantus 40, and trulicty 0.75 mg weekly She states that she does notice some mild appetite suppression with the Trulicity. She is down 5 lb from our last visit. She does not have any adverse effects to her current medications. Sometimes she is getting Lantus because she feels her sugars might be a little too low. She has not yet started the CGM because she is nervous about putting it on her arm. She did pickle solution maker the sensor and the reader but forgot to bring them in today. She has finger sticking every morning in her blood sugars are about 80-140. She states most of the time they are less than 100. Previous medications: none Denies any hypoglycemia CGM- never had one Follows with Ophthalmology - last seen May, glaucoma Does not have a securities vault supervisor. States that she is going to wait on seeing someone. Does not want to see a supervisor glycerin or clinical staff educator at this point. 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 CV: Blood pressure today in the office is 154/68. She states she had a lot of coffee today and felt stressed coming here. She is currently on metoprolol 50 mg twice a day, hydrochlorothiazide 25 mg daily, and hydralazine bid. Cholesterol is managed with Crestor 40 mg. 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 Physical Exam Vital Signs: Last Vital Signs Pulse 78 11/10/24 13:45 BP 154/68 H 11/10/24 13:45 Pulse Ox 95 11/10/24 13:45 Oxygen Delivery Method Room Air 06/27/25 13:45 BMI result Body Mass Index 34.7 Results AMB Hemoglobin A1c AMB Hemoglobin A1c 7.1 % Last Edit by GORGE French on 11/10/24 14:02 Results Reviewed Results Reviewed: Laboratory Last Values Glucose (Clinic) 99 mg/dL (60-115) 11/10/24 13:53 Assessment & Plan Assessment & Plan (1) Type 2 diabetes mellitus with hyperglycemia, with long-term current use of insulin: Code(s): E11.65 - Type 2 diabetes mellitus with hyperglycemia; Z79.4 - intermediate manager (current) use of insulin Category: Medical Plan: We will reduce the Lantus to 20 units Increase Trulicity to 1.5 mg weekly Continue with the Jardiance 10 mg daily, metformin 1000 mg twice a day. I applied a sensor today for her and showed her how to do this. She will bring in her reader and sensor if she has any questions or concerns. We will do a short term follow up. We reviewed signs and symptoms of hypo and hyperglycemia that would require emergent medical treatment (2) HTN (hypertension): Code(s): I10 - Essential (primary) hypertension Category: Medical Plan: Reports better blood pressures at home. We will monitor. We will recheck at our follow up. (3) Hyperlipidemia: Code(s): E78.5 - Hyperlipidemia, unspecified Category: Medical Plan: Continue current regimen. Orders: Orders AMB Hemoglobin A1c Today E11.65 - Type 2 diabetes mellitus with hyperglycemia, Z13.9 - Encounter for screening, unspecified, Z79.4 - intermediate manager (current) use of insulin Medications: New insulin glargine (Lantus Solostar U-100 Insulin) 20 units (0.2 mL) subcut QPM 15 mL 2RF dulaglutide (Trulicity) 1.5 mg (0.5 mL) subcut QWEEK 2 mL 4RF Discontinued dulaglutide (Trulicity) Discontinued Reason: Duplicate 0.75 mg (0.5 mL) subcut QWEEK 2 mL 3RF Coding Level of Care Code Est Pt Level 4 (27904) Complex EM visit Add On G2211 Diagnoses Type 2 diabetes mellitus with hyperglycemia, with long-term current use of insulin E11.65; Z79.4 HTN (hypertension) I10 Hyperlipidemia E78.5
[2024-11-10 13:45] VITALS: BP 154/68; PULSE 78; O2SAT 95; BMI 34.7
[2024-11-10 13:57] LABS: Glucose, Whole Blood 99 mg/dL (60-115)
--- OUTSIDE RECORDS SUMMARY | 2024-11-10 14:08 | XMS_ITS | Clinical Summary ---
Author Organization [facility] [address] [facility] Address [address] [place], [place] Phone Care Team Providers Care Implementation Lead Name Role Phone Talita Aparicio MD Primary Care Provider [phone]- [phone] Encounters Date Type Department Care Team Description 09/07/2024 Telephone [facility] [address] [place] [phone] Yobany Cortés MD external referral from Last 3 Months Surgical History Surgery Date Site/Laterality Comments OTHER SURGICAL HISTORY PROCEDURE: CT UNLISTED PX FEMALE GENITAL SYSTEM NONOBSTETRICAL; COMMENT: [...] to complete this topic Insurance [employer] [place] [id number] Care Teams Implementation Lead Relationship Specialty Start Date End Date Talita Aparicio MD [address] [place] [address] PCP - General Internal Medicine 09/21/14
== END 2024-11-10 14:46 | disposition home or self-care (01) ==
LOC: HO.ENCR 13:41
PROVIDERS: PCP Physician Assistant Medical; Visit Provider Physician Assistant
DX: E11.65 Type 2 diabetes mellitus with hyperglycemia (principal); Z79.4 Long term (current) use of insulin; I10 Essential (primary) hypertension; E78.5 Hyperlipidemia, unspecified; Z13.9 Encounter for screening, unspecified

== ENCOUNTER → 2024-11-10 13:41 | Outpatient (BNVA) | payer MEDICARE, SELFPAY | PROVIDERS: PCP Physician Assistant Medical; Visit Provider Physician Assistant | DX: E11.65 Type 2 diabetes mellitus with hyperglycemia (principal); E78.5 Hyperlipidemia, unspecified; I10 Essential (primary) hypertension; Z79.4 Long term (current) use of insulin | CPT/HCPCS: 82947; 83036; 99212 ==

== ENCOUNTER 2025-01-08 08:01 | Outpatient (AMB) | payer MEDICARE, SELFPAY ==
[2025-01-08 08:03] VITALS: BP 180/76; PULSE 87; O2SAT 94
--- NOTE | 2025-01-08 08:03 | MHC.OFFVIS ---
Vital Signs 01/08/25 08:03 Weight 224 lb 10.417 oz BP 180/76 H Blood Pressure Location Lt brachial Position Sitting Pulse 87 Pulse Source Pulse Oximeter Pulse Oximetry (%) 94 Oxygen Delivery Method Room Air Intake Visit Reasons: T2DM Intake Note: Patient present today for Type 2 Diabetes Mellitus Last Diabetic eye exam: 11/2024 Last Podiatry Visit: Doesn't have one Random Glucose: 145 mg/dl HgA1C: 7.1% 11/10/24 Carbon Sequestration Plant Manager Required: No Accompanied by: Self / Same As Patient Allergies No Known Allergies Allergy (Verified 01/08/25 08:11) Medication List - Last Reconciled 01/08/25 by Viviana Grant PA-C beclomethasone dipropionate 40 mcg/actuation (Qvar RediHaler) 2 inhalations inhalation BID blood sugar diagnostic (Job1001Touch Ultra Test strips) Use daily As directed to monitor blood glucose blood-glucose sensor (FreeStyle Deangelo 3 Plus Sensor device) Use daily As directed to monitor glucose blood-glucose,stitch bonder machine operator helper,cont (FreeStyle Deangelo 3 [place]) Use daily As directed to monitor blood glucose ciclesonide 80 mcg/actuation (Alvesco) 1 puff inhalation BID dulaglutide (Trulicity) 1.5 mg (0.5 mL) subcut QWEEK empagliflozin (Jardiance) 10 mg PO DAILY folic acid 1 mg PO DAILY 90 days hydralazine 25 mg PO BID hydrochlorothiazide 25 mg PO DAILY insulin glargine (Lantus U-100 Insulin) 20 units (0.2 mL) subcut QPM lancets (OneTouch UltraSoft 2 Lancet) use daily As directed to monitor blood sugars levalbuterol tartrate 45 mcg/actuation 1 puff inhalation Q4-6H PRN metformin 1,000 mg PO BID methotrexate sodium 20 mg (8 x 2.5 mg) PO QWEEK 90 days metoprolol tartrate 50 mg PO BID rosuvastatin 40 mg PO DAILY HPI HPI T2DM: Details: Patient is a 69-year-old female with a significant past medical history of rheumatoid arthritis, COPD, hypertension, hyperlipidemia, CAD and type 2 diabetes presenting today for an initial visit regarding her type 2 diabetes. Endo: Was diagnosed with diabetes 2015. A1c today in office 7.1. She states that this is her best a1c because she quit eating sugar. She is currently managed on metformin 1000 mg twice a day, Jardiance 10 mg daily, Lantus 20, and trulicty 1.5 mg weekly She states that she does notice some mild appetite suppression with the Trulicity. She does not have any adverse effects to her current medications. She has finger sticking every morning in her blood sugars are about 80-140. She states most of the time they are less than 100. Previous medications: none Denies any hypoglycemia CGM-she states that it fell off of her after a week of being on her. She did not apply a new 1. Admits to having some exacerbation of depression and not overly caring about monitoring blood sugars but states that she is in a better mind that and is going to work harder on her diabetic management. She is open to taking a sample today and picking up the CGM from the pharmacy. She is also seeing her PCP tomorrow for her overall check in into discuss the depression Follows with Ophthalmology - last seen May, glaucoma Does not have a faculty support coordinator. States that she is going to wait on seeing someone. Does not want to see a tensioning machine operator or in service educator at this point. 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 CV: Blood pressure today in the office is 186/76. She states she worked last night and has not yet taken any medication for her bp. She states that she normally takes medication around this time or earlier. She states she had a lot of coffee today and felt stressed coming here. She is currently on metoprolol 50 mg twice a day, hydrochlorothiazide 25 mg daily, and hydralazine bid. Cholesterol is managed with Crestor 40 mg. 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 Physical Exam Vital Signs: Last Vital Signs Pulse 87 01/08/25 08:03 BP 180/76 H 01/08/25 08:03 Pulse Ox 94 01/08/25 08:03 Oxygen Delivery Method Room Air 01/08/25 08:03 Const Orientation/consciousness: patient oriented x3 HEENT Ears: hearing grossly normal bilaterally Neck Thyroid: Thyroid normal Lymphatic: no lymphadenopathy noted Resp Auscultation: clear to auscultation bilaterally Cardio Rate: regular rate Rhythm: regular rhythm Heart sounds: S1 normal heart sound present and S2 normal heart sound present Skin General skin exam: no rashes or lesions noted Neuro General: patient oriented x3, gait normal and no focal motor deficits Results Reviewed Results Reviewed: Laboratory Last Values Glucose (Clinic) 145 mg/dL (60-115) H 01/08/25 08:13 Assessment & Plan Assessment & Plan (1) Type 2 diabetes mellitus with hyperglycemia, with long-term current use of insulin: Code(s): E11.65 - Type 2 diabetes mellitus with hyperglycemia; Z79.4 - intermediate designer (current) use of insulin Category: Medical Plan: decrease lantus to 10 units daily increase trulicity to 3 mg weekly continue jardiance 10 mg daily continue metformin 1000 mg bid Deangelo 3 given today in the office and I applied it for her. I have encouraged her to try applying tape over the sensor (2) HTN (hypertension): Code(s): I10 - Essential (primary) hypertension Category: Medical Plan: Elevated today. Asymptomatic. States that she is going to take her medications when she gets home. (3) Hyperlipidemia: Code(s): E78.5 - Hyperlipidemia, unspecified Category: Medical Plan: Having her lipids checked tomorrow Orders: Orders Comprehensive [place]. Panel Fast Today E11.65 - Type 2 diabetes mellitus with hyperglycemia, E78.5 - Hyperlipidemia, unspecified, I10 - Essential (primary) hypertension, Z79.4 - intermediate designer (current) use of insulin Hemoglobin A1c Today E11.65 - Type 2 diabetes mellitus with hyperglycemia, E78.5 - Hyperlipidemia, unspecified, I10 - Essential (primary) hypertension, R73.01 - Impaired fasting glucose, Z79.4 - intermediate designer (current) use of insulin Microalbumin, Random (w Creat) Today E11.65 - Type 2 diabetes mellitus with hyperglycemia, E78.5 - Hyperlipidemia, unspecified, I10 - Essential (primary) hypertension, Z79.4 - intermediate designer (current) use of insulin Medications: New dulaglutide (Trulicity) 3 mg (0.5 mL) subcut QWEEK 2 mL 5RF Changed From insulin glargine (Lantus U-100 Insulin) 20 units (0.2 mL) subcut QPM 10 mL 4RF To insulin glargine (Lantus U-100 Insulin) 10 units (0.1 mL) subcut QPM 10 mL 4RF Discontinued dulaglutide (Trulicity) Discontinued Reason: Doctor's Order 1.5 mg (0.5 mL) subcut QWEEK 2 mL 4RF Coding Level of Care Code Est Pt Level 4 (27565) Complex EM visit Add On G2211 Diagnoses Type 2 diabetes mellitus with hyperglycemia, with long-term current use of insulin E11.65; Z79.4 HTN (hypertension) I10 Hyperlipidemia E78.5
--- OUTSIDE RECORDS SUMMARY | 2025-01-08 08:05 | XMS_ITS | Clinical Summary ---
Author Organization [address] Address [address] [place] [phone] Phone Care Team Providers Care Electrical Subcontractor Name Role Phone Talita Aparicio MD Primary Care Provider [phone]- [phone] Surgical History Surgery Date Site/Laterality Comments OTHER [...] Panel) 04/14/2022 Colorectal Cancer Screening: Colonoscopy 04/14/2022 Falls Risk Assessment 04/14/2022 Hepatitis C Screening 04/14/2022 Osteoporosis Screening (Bone Density Screening) 04/14/2022 Social Influencers of Health Screening 04/14/2022 Diabetes: Annual Urine Albumin-Creatinine Ratio (uACR) 04/23/2022 Diabetes: Blood Sugar Contro l Test (HGBA1C) 04/23/2022 COVID-19 Vaccine (1 - 2023-2 5 season) 2024 Depression Screening 05/17/2024 Influenza Vaccine (#1) 2025 Hepatitis B Vaccines Completed 06/12/1994, 12/25/1993, [...] patient's age to complete this topic Insurance Care Teams Electrical Subcontractor Relationship Specialty Start Date End Date Talita Aparicio MD [address] [place] [address] PCP - General Internal Medicine 09/21/14
--- OUTSIDE RECORDS SUMMARY | 2025-01-08 08:05 | XMS_ITS | Clinical Summary ---
Author Organization [facility] Address [address] [place], [place] [id number] Phone Care Team Providers Care Leasing Associate Name Role Phone Lily Rodriguez NP Primary Care Provider + Social History Tobacco Use Types Packs/Day Years Used Date Smoking Tobacco: Never Assessed Education Answer Date Recorded Are you interested in more education? Not on jet e 09/11/2022 Are you concerned about learning? Not on file 09/11/2022 No 09/11/2022 No 09/11/2022 Digital Access Answer Date Recorded No 10/13/2022 No 10/13/2022 No 10/13/2022 Reliable internet access at home? Not on file 10/13/2022 Device with a working camera? Not on file Comments Unknown Sex and Gender Information Value Date Recorded Sex Assigned at Not on file Legal Sex Female 12:22 PM EDT Gender Identity Not on file Sexual Orientation Not on file Plan of Treatment Not on file Medical Devices Not on file Insurance [facility] HEALTH CARE CIGNA PPO HEALTH CARE CIGNA PPO HEALTH CARE [facility] Member Subscriber Plan / Payer ( fective 2017-Present) Name:DianaRachael whitneyne Relation to Subscriber:Self Name:Flag PondSvetlana whitney Payer ID:[id number] ([facility]) Group ID:Not on file Type:Indemnity Address: [address] [place] [id number] [facility] Member Subscriber Plan / Payer ( fective 2017-Present) Name:Flag Pond, Svetlana Relation to Subscriber:Self Name:Svetlana Ortiz Payer ID:[id number] ([facility]) Group ID:Not on file Type:Scripped Address: [address] PPO HEALTH CARE CIGNA PPO HEALTH CARE CIGNA PPO CARE CIGNA PPO [facility] HEALTH CARE CIG PPO Care Teams Leasing Associate Relationship Specialty Start Date End Date Lily Rodriguez NP [address] [place] [phone] PCP - General Family Medicine 11/10/17 Additional Source Comments The information contained in this document represents components of the legal health record. It is not the complete legal health record.[facility]
[2025-01-08 08:17] LABS: Glucose, Whole Blood 145 mg/dL (60-115)
== END 2025-01-08 08:35 | disposition home or self-care (01) ==
LOC: HO.ENCR 08:02
PROVIDERS: PCP Physician Assistant Medical; Visit Provider Physician Assistant
DX: E11.65 Type 2 diabetes mellitus with hyperglycemia (principal); Z79.4 Long term (current) use of insulin; I10 Essential (primary) hypertension; E78.5 Hyperlipidemia, unspecified

== ENCOUNTER → 2025-01-08 08:01 | Outpatient (BNVA) | payer MEDICARE, SELFPAY | PROVIDERS: PCP Physician Assistant Medical; Visit Provider Physician Assistant | DX: E11.65 Type 2 diabetes mellitus with hyperglycemia (principal); E78.5 Hyperlipidemia, unspecified; I10 Essential (primary) hypertension; Z79.4 Long term (current) use of insulin | CPT/HCPCS: 82947; 99212 ==

== ENCOUNTER 2025-03-12 12:06 | Outpatient (REF) | payer MEDICARE, SELFPAY ==
--- OUTSIDE RECORDS SUMMARY | 2025-03-12 15:37 | XMS_ITS | Clinical Summary ---
Author Organization [address] Address [address] [place] [phone] Phone Care Team Providers Care Abalone Processor Name Role Phone Talita Aparicio MD Primary Care Provider +1- [phone] Surgical History Surgery Date Site/Laterality Comments OTHER [...] Last Done Comments Breast Cancer Screening 1956 Colorectal Cancer Screening: Colonoscopy 1956 Diabetes: Annual GFR (Glomerular Filtration Rate) 1956 Diabetes: Annual Foot Exam 1966 Diabetes: Annual Retina Eye Exam 1966 Pneumococcal Vaccine: 50+ Years (1 of 1 - PCV) 2006 RSV Immunization Adult Patients (1 - Risk 50-74 years 1-dose series) 2006 Zoster Vaccines (1 of 2) 2006 DTaP,Tdap,and Td Vaccines (2 - Td or Tdap) 10/11/2008 10/11/1998 Cholesterol Screening (Lipid Panel) 04/14/2022 Falls Risk Assessment 04/14/2022 Hepatitis C Screening 04/14/2022 Osteoporosis Screening (Bone Density Screening) 04/14/2022 Social Influencers of Health Screening 04/14/2022 Diabetes: Annual Urine Albumin-Creatinine Ratio (uACR) 04/23/2022 Diabetes: Blood Sugar Contro l Test (HGBA1C) 04/23/2022 Depression Screening 05/17/2024 Hypertension/CHF/CAD Annual BMP Blood Test 01/09/2025 COVID-19 Vaccine (3 - 2024-2 6 season) 2025 12/17/2020, 11/25/2020 Influenza Vaccine (#1) 2025 Hepatitis B Vaccines [...] patient's age to complete this topic [place] [id number] Care Teams Abalone Processor Relationship Specialty Start Date End Date Talita Aparicio MD [address] [place] [address] PCP - General Internal Medicine 09/21/14
--- OUTSIDE RECORDS SUMMARY | 2025-03-12 15:37 | XMS_ITS | Clinical Summary ---
Author Organization [facility] Address [address] [place], [place] [phone] Phone Care Team Providers Care Convention Planner Name Role Phone Lily Rodriguez NP Primary [...] file Medical Devices Not on file Insurance [facility] HEALTH CARE CIGNA PPO HEALTH CARE CIGNA PPO HEALTH CARE [facility] Member Subscriber Plan / Payer ( fective 2017-Present) Name:CastleberryRachael whitneyne Relation to Subscriber:Self Name:DianaSvetlana whitney Payer ID:[id number] ([facility]) Group ID:Not on file Type:Indemnity Address: [address] [place] [id number] [facility] Member Subscriber Plan / Payer ( fective 2017-Present) Name:Diana, Svetlana Relation to Subscriber:Self Name:Svetlana Ortiz Payer ID:[id number] ([facility]) Group ID:Not on file Type:[employer] Address: [address] PPO HEALTH CARE CIGNA PPO HEALTH CARE CIGNA PPO CARE CIGNA PPO [facility] HEALTH CARE CIG PPO Care Teams Convention Planner Relationship Specialty Start Date End Date Lily Rodriguez NP [address] [place] [id number] PCP - General Family Medicine 11/10/17 Additional Source Comments The information contained in this document represents components of the legal health record. It is not the complete legal health record.[facility]
[2025-03-12 17:57] LABS: MANUAL DIFF FLAG NO
[2025-03-12 18:09] LABS: Hematocrit 38.2 % (37.0-47.0); Hemoglobin 12.4 g/dl (12.0-16.0); Imm Gran Abs Auto 0.03 X10*3/uL (0.00-0.03); Imm Gran Pct Auto 0.4 % (0.0-0.4); Lymphocytes Absolute Auto 1.8 X10*3/uL (1.2-4.9); Mean Corpuscular HGB Conc 32.5 g/dl (31.0-35.0); Mean Corpuscular Hemoglobin 27.5 pg (27.0-33.0); Mean Corpuscular Volume 84.7 fL (80.0-98.0); NRBC Abs Auto 0.000 X10*3/uL (0.0-0.012); NRBC Pct Auto 0.0 /100WBC (0.0-0.2); Platelet Count 211 X10*3/uL (160-400); Red Blood Count 4.51 X10*6/uL (4.20-5.50); White Blood Count 6.9 X10*3/uL (4.8-10.8)
[2025-03-12 18:17] LABS: Alanine Aminotransferase 32 U/L (0-31); Albumin Level 3.7 g/dL (3.5-5.0); Alkaline Phosphatase 65 U/L (39-117); Anion Gap 13 (12-20); Aspartate Amino Transferase 29 U/L (5-31); Blood Urea Nitrogen 18 mg/dL (9-16); Calcium 9.1 mg/dL (8.4-10.2); Carbon Dioxide 26 mmol/L (22-29); Chloride 106 mmol/L (96-108); Estimated Glomerular Filt Rate > 60; Potassium 3.7 mmol/L (3.3-5.1); Sodium 141 mmol/L (135-145); Total Protein 7.0 g/dL (6.5-8.0)
== END 2025-03-12 12:07 | disposition home or self-care (01) ==
LOC: HO.HKASLDS 12:06
PROVIDERS: PCP Physician Assistant Medical; Visit Provider Student in an Organized Health Care Education/Training Program
DX: M05.79 Rheumatoid arthritis with rheumatoid factor of multiple sites without organ or systems involvement (principal)
CPT/HCPCS: 36415; 80053; 85025; 85652; 86140

== ENCOUNTER 2025-03-14 14:46 | Outpatient (AMB) | payer MEDICARE, SELFPAY ==
--- NOTE | 2025-03-14 14:51 | A.OFFVIS_ITS ---
Vital Signs 03/14/25 14:57 Height 5 ft 6.5 in Weight 216 lb 4.375 oz BMI 34.4 BP 142/80 H Blood Pressure Location Lt brachial Position Sitting Pulse 95 Pulse Source Pulse Oximeter Pulse Oximetry (%) 98 Oxygen Delivery Method Room Air Intake Visit Reasons: follow up Intake Note: Patient presents for RA follow up. Allergies No Known Allergies Allergy (Verified 03/14/25 14:56) HPI Comments Details: Patient is a 70-year-old female former smoker with 35+ pack years, hypertension complicated by coronary artery disease status post stent, diabetes on insulin complicated by diabetic neuropathy, and COPD who is here to follow up of seropositive erosive rheumatoid arthritis Interval History: Patient last seen 10/13/2024 with me. - On methotrexate 20mg PO weekly and folic acid 1mg daily - Notes continued improvement on the increase in methotrexate pills. Had some time with right elbow pain but it was short-lived. - Complaining of right ring finger trigger finger that is painful Today - On methotrexate 20mg PO weekly and folic acid 1mg daily - Doing well overall - Right trigger finger improved Rheumatologic History: Patient was 1st evaluated in this practice 02/29/2024 with right elbow arthritis. At that time there was swelling, warmth and tenderness noted to the right elbow as well as the right wrist and right shoulder. There were no other joints involved. Arthrocentesis was done which showed inflammatory fluid without crystals and negative cultures. 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 Patient ultimately diagnosed with seropositive rheumatoid arthritis. 02/2024. Methotrexate 15mg weekly 05/2024. Methotrexate increased to 20mg weekly due to remaining disease activity Current Rheumatology Medication(s): Methotrexate 20 mg weekly Folic acid 1 mg daily except methotrexate days [facility] Medical History (Updated 10/13/24 @ 14:40 by Viviana Grant PA-C) Arthritis of both knees Arthritis of left knee Arthritis of right knee On methotrexate therapy Rheumatoid arthritis Rheumatoid arthritis flare CAD (coronary artery disease) HTN (hypertension) Surgical History History of appendectomy Social History Alcohol intake: never Patient Tobacco Use Status: Former Tobacco user Years Smoked: 45 years Quit in 2018 Current occupational status: employed and retired 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/ [employer] Review of Systems Narrative Review of Systems Constitutional: Denies fever, chills, weight loss ENT: Denies vision changes, eye pain or eye redness, dental caries, dry mouth GI: Denies nausea, vomiting, diarrhea, abdominal pain, change in BM Pulm: Denies SOB, SARAVIA, hemoptysis, wheezing Cards: Denies chest pain, palpitations Skin: Denies Raynaud's, rash, nail changes, photosensitivity, [employer]: Denies headaches, weakness, paresthesias, recurrent falls MSK: as per HPI All other systems reviewed and are unremarkable except noted above Physical Exam Exam Exam: Vital signs reviewed Physical Examination CONSTITUITIONAL Patient alert and cooperative. Well appearing and in no apparent painful distress MSK Hands * Right Hand: Able to make a fist. No swelling or tenderness to palpation of the MCPs, PIPs or DIPs. * Left Hand: Able to make a fist. No swelling or tenderness to palpation of the MCPs, PIPs or DIPs. * Herbedens nodes noted bilaterally Wrists * Right Wrist: Full ROM to flexion and extension. No swelling or TTP * Left Wrist: Full ROM to flexion and extension. No swelling or TTP Elbows * Right Elbow: Full ROM. No swelling or TTP. TTP of the medial epicondyle. No TTP of the lateral epicondyle * Left Elbow: Full ROM. No swelling or TTP. No TTP of the medial epicondyle. No TTP of the lateral epicondyle Shoulders * Right shoulder: Full ROM. No swelling noted. No TTP of the AC joint. No TTP of the subacromial bursa. No TTP of the posterior shoulder * Left shoulder: Full ROM. No swelling noted. No TTP of the AC joint. No TTP of the subacromial bursa. No TTP of the posterior shoulder Knees * Right knee: Full ROM. No swelling noted. No TTP of the knee joint line. No TTP of pes anserine bursa * Left knee: Full ROM. No swelling noted. No TTP of the knee joint line. No TTP of pes anserine bursa. Ankles * Right ankle: Good ankle dorsiflexion and plantar flexion. No swelling. No TTP of the ankle joint * Left ankle: Good ankle dorsiflexion and plantar flexion. No swelling. No TTP of the ankle joint Feet * Right foot: Negative squeeze test * Left foot: Negative squeeze test Tender points? * No tenderness to palpation of the bilateral trapezius, supraspinatus, anterior costochondral junctions, bilateral suboccipital muscle insertions SKIN No rashes Vital Signs: Last Vital Signs Pulse 95 03/14/25 14:57 BP 142/80 H 03/14/25 14:57 Pulse Ox 98 03/14/25 14:57 Oxygen Delivery Method Room Air 03/14/25 14:57 BMI result Body Mass Index 34.4 Results Reviewed Results Reviewed: Laboratory Tests 06/12/24 10/10/24 09:06 15:21 WBC 8.3 RBC 3.93 L Hgb 10.8 L Hct 32.4 L Plt Count 235 ESR 96 H Sodium 137 Potassium 3.8 Chloride 102 Carbon Dioxide 26 Anion Gap 13 Creatinine 0.86 AST 31 ALT 24 C-Reactive Protein 0.35 0.82 H Laboratory Tests 10/10/24 03/12/25 15:21 12:11 WBC 6.9 RBC 4.51 Hgb 12.4 Hct 38.2 Plt Count 211 ESR 96 H 42 H Sodium 141 Potassium 3.7 Chloride 106 Carbon Dioxide 26 BUN 18 H Creatinine 0.80 AST 29 ALT 32 H C-Reactive Protein 0.82 H 0.14 Rheumatology Labs 03/09/24 03/09/24 16:38 16:43 Rheumatoid Factor 323.6 H Cycl Citrul Peptide IgG >250 H HINA Screen POSITIVE A HINA Titer 1:40 H Infectious Labs 06/12/24 10/10/24 09:06 15:21 Hepatitis A IgM Ab Nonreactive Hep Bs Antigen Negative Hep Bs Antibody NONREACTIVE Hep B Core Total Ab Nonreactive Hepatitis C Ab (EIA) Nonreactive TB Test (T-Spot) Com Negative Assessment & Plan Assessment & Plan (1) Rheumatoid arthritis: Comment: diagnosed 02/2024. High titre RF and CCP 02/2024. Methotrexate 15mg 05/2024. Methotrexate increased to 20mg due to lingering disease activity Code(s): M06.9 - Rheumatoid arthritis, unspecified Category: Medical Qualifiers: Rheumatoid arthritis location: multiple sites Rheumatoid factor presence: with rheumatoid factor Qualified Code(s): M05.79 - Rheumatoid arthritis with rheumatoid factor of multiple sites without organ or systems involvement Plan: #Seropositive erosive rheumatoid arthritis Patient is a 70-year-old female with seropositive erosive rheumatoid arthritis. X-rays of the hands show erosions in both the wrists and the MCPs. Doing well on methotrexate. Very slight increase in AST today. We will continue to monitor Plan - Methotrexate 20mg weekly - Folic acid 1mg daily - RTC 4 months - Labs before next visit: CBC, CMP, ESR, CRP (2) Trigger finger, right ring finger: Code(s): M65.341 - Trigger finger, right ring finger Plan: #Right ring finger trigger finger Resolved (3) On methotrexate therapy: Comment: started 02/2024 Code(s): Z79.631 - vermin exterminator (current) use of antimetabolite agent Category: Medical Plan: #Long-term Current Use of Methotrexate Discussed with patient the benefits and risks of methotrexate for managing their rheumatic condition Benefits include reduced pain, reduced mortality, maintenance of remission and reduction of flares Risks include oral ulcers, photosensitivity, hepatotoxicity, hematologic toxicity, pneumonitis, flu-like symptoms (especially day after administration), nodulosis, lymphomas ? Limit alcohol and avoid Bactrim ? Monitoring: ?CBC, BMP, LFTs every 3-4 months and hepatitis serologies as needed Plan I spent 30 minutes reviewing the record and labs, taking a history, examining the patient, discussing the treatment plan and documenting in the medical record Coding Level of Care Code Est Pt Level 4 (94707) Complex EM visit Add On G2211 Diagnoses Rheumatoid arthritis involving multiple sites with positive rheumatoid factor M05.79 Rheumatoid arthritis location: multiple sites Rheumatoid factor presence: with rheumatoid factor Trigger finger, right ring finger M65.341 On methotrexate therapy Z79.631
[2025-03-14 14:57] VITALS: BP 142/80; PULSE 95; O2SAT 98; BMI 34.4
--- OUTSIDE RECORDS SUMMARY | 2025-03-14 19:08 | XMS_ITS | Clinical Summary ---
Author Organization [facility] Address [address] [place], [place] [id number] Phone Care Team Providers Care Parts Department Manager Name Role Phone Lily Rodriguez NP Primary [...] file Medical Devices Not on file Insurance [facility] CIGNA PPO HEALTH CARE CIGNA PPO HEALTH CARE [facility] Member Subscriber Plan / Payer ( fective 2017-Present) Name:NapaRachael whitneyne Relation to Subscriber:Self Name:DianaSvetlana whitney Payer ID:[id number] ([facility]) Group ID:Not on file Type:Indemnity Address: [address] [place] [id number] [facility] Member Subscriber Plan / Payer ( fective 2017-Present) Name:Diana, Svetlana Relation to Subscriber:Self Name:Svetlana Ortiz Payer ID:[id number] ([employer]) Group ID:Not on file Type:[employer] Address: [address] PPO HEALTH CARE [employer]IG[employer] PPO HEALTH CARE CIGNA PPO CARE CIGNA PPO [facility] CIG PPO Care Teams Parts Department Manager Relationship Specialty Start Date End Date Lily Rodriguez NP [address] [place] [id number] PCP - General Family Medicine 11/10/17 Additional Source Comments The information contained in this document represents components of the legal health record. It is not the complete legal health record.[facility]
--- OUTSIDE RECORDS SUMMARY | 2025-03-14 19:08 | XMS_ITS | Clinical Summary ---
Author Organization [address] Address [address] [place] [id number] Phone Care Team Providers Care Triple Valve Tester Name Role Phone Talita Aparicio MD Primary Care Provider [phone] Surgical History Surgery Date Site/Laterality Comments OTHER [...] patient's age to complete this topic Insurance [facility] [id number] Care Teams Triple Valve Tester Relationship Specialty Start Date End Date Talita Aparicio MD [address] [place] [address] PCP - General Internal Medicine 09/21/14
== END 2025-03-14 15:17 | disposition home or self-care (01) ==
LOC: HO.RHES 14:46
PROVIDERS: PCP Physician Assistant Medical; Visit Provider Student in an Organized Health Care Education/Training Program
DX: M05.79 Rheumatoid arthritis with rheumatoid factor of multiple sites without organ or systems involvement (principal); M65.341 Trigger finger, right ring finger; Z79.631 Long term (current) use of antimetabolite agent
CPT/HCPCS: 99214; G2211

== ENCOUNTER → 2025-03-14 14:46 | Outpatient (BNVA) | payer MEDICARE, SELFPAY | PROVIDERS: PCP Physician Assistant Medical; Visit Provider Student in an Organized Health Care Education/Training Program | DX: M05.79 Rheumatoid arthritis with rheumatoid factor of multiple sites without organ or systems involvement (principal); M65.341 Trigger finger, right ring finger; Z79.631 Long term (current) use of antimetabolite agent | CPT/HCPCS: 99212 ==